=== PATIENT | female | born 1990 | race Caucasian/White ===

== ENCOUNTER 2018-03-20 22:08 | Emergency (ER) | payer MEDICAID, SELFPAY ==
[2018-03-20 22:12] VITALS: BP 115/82; PULSE 89; RESP 17; TEMP 36.6; O2SAT 99
--- NOTE | 2018-03-20 22:21 | DI.RAD_ITS ---
SYMPTOM/DIAGNOSIS: PAIN. FELL GOING UP STAIRS RIGHT WRIST: Five views. No priors. No bone or joint abnormality is identified. IMPRESSION: Normal examination.
[2018-03-20] MEDS: Ibuprofen 800 MG TAB PO (22:26)
[2018-03-20] MEDS: Acetaminophen 500 MG TAB 1000 MG PO (22:26)
--- NOTE | 2018-03-20 22:28 | ED.GENADUL_ITS ---
Discharge Plan Disposition Patient Disposition: HOME Condition: Good Discharge Details Chief Complaint: Orthopedic Clinical Impression: Sprain of right wrist Primary Care Provider: Bita Tarango ED Provider: Darnell Pastrana Home Meds and New Rx's Prescriptions: No Action ProAir HFA 8.5 GM HFA aerosol inhaler 1 puff IN QID PRNRF: 0 Pulmicort Flexhaler 120 PUFF/INH aerosol powdr breath activated 180 mcg IN DAILY RF: 0 bupropion HCl [Wellbutrin XL] 300 mg Tablet Extended Release 24 Hr 300 mg PO DAILY RF: 0 Discharge Instructions Instructions: Wrist Sprain (ED) Additional Instructions: Please use Tylenol, Motrin, and ice for your wrist pain. Please use the splint as directed. If you notice any worsening of your symptoms, or any new symptoms such as vomiting, diarrhea, fever, chills, shortness of breath, chest pain, numbness, weakness, or fainting , please return immediately to the emergency department for reevaluation. Please follow up with your primary care provider as soon as possible for reassessment and reevaluation. As always, it was a pleasure participating in your medical care today. Referrals: Bita Tarango [Primary Care Provider] - Medical Decision Making This is a 28-year-old female who fell on an outstretched wrist on her right wrist which is her dominant hand. She has some subjective tingling in fingers 2 through 5 however she has notable two-point discrimination up to 3 mm in all of her fingers. No signs of actual decrease in sensation objectively. She does have pain on palpation of the carpal tunnel. No significant pain with movement. Good range of motion. I feel she may have suffered a small sprain in a wrist of we will get an x-ray including with a carpal tunnel view to rule out a fracture. 11:22 PM Patient's x-ray has returned there is no acute fracture. I feel that she has suffered a mild sprain in her wrist. With no evidence of snuffbox tenderness, and no objective decrease in sensation on examination I feel she can be safely discharged home. We will give a universal wrist splint, and recommend continue Tylenol and Motrin. I have extensively reviewed the treatment plan and discharge instructions with the patient and their family. I have addressed all patient concerns at this time. The patient and family was made aware of what symptoms to monitor for that would warrant a return to the emergency department. Discussed the plan with the patient and family, they demonstrate verbal understanding and agreement with our assessment and plan at this time. FINDINGS: Bones/joints: Normal. There is no evidence of acute fracture.There is no evidence of malalignment or dislocation. Soft tissues: Normal. IMPRESSION: No acute findings. Dictated and Authenticated by: Julissa Pritchard MD. HPI General Date/Time Provider Initiated Documentation: 03/20/18 22:12 . HPI Narrative: This is a 28-year-old female with no significant past medical history who presents today for evaluation of right wrist pain. Patient is right-hand dominant. She states that she slipped and fell on an outstretched wrist, since then has had pain over her wrist. Pain is worsened with movement. Improved by nothing she has not taken any NSAIDs or used any ice. She denies any tingling but does admit to slight decreased sensation over fingers 2 through 5. She denies any radiation of the pain upper arm, but does admit to some muscle tightness. No pain in her elbow. No pain in the fingers or hand itself. No other complaints at this time. Patient denies any recent surgeries, she denies any IV or illicit drug use. She denies any pertinent family history. Related Data Home Medications Medication Instructions Recorded Confirmed ProAir HFA 1 puff IN QID PRN 08/23/17 03/20/18 Pulmicort Flexhaler 180 mcg IN DAILY 08/23/17 03/20/18 bupropion HCl [Wellbutrin XL] 300 mg PO DAILY 03/20/18 03/20/18 Allergies Allergy/AdvReac Type Severity Reaction Status Date / Time No Known Allergies Allergy Unverified 03/20/18 22:11 General Stated Complaint: Orthopedic KELSEY: 4 Review of Systems Review of Systems All systems reviewed & are unremarkable except as noted in HPI and below Exam Narrative Exam Narrative: 1.Const: Well-nourished, Well-developed, appearing stated age 2.Eyes: PERRL, no conjunctival injection, and symmetrical lids. 3.ENT: Atraumatic external nose and ears. Moist MM. Neck: Symmetric, trachea midline, No thyromegaly. 4.CVS: +S1/S2, No murmurs or gallops. Peripheral pulses 2+ and equal in all extremities. Brisk capillary refill in all extremities. 5.RESP: Unlabored respiratory effort. Clear to auscultation bilaterally. No wheezes rales or rhonchi 6.GI: Soft, Nontender/Nondistended, No hepatosplenomegaly. No guarding or rebound. 7.MSK: Normocephalic/Atraumatic, Extremities w/o deformity. No cyanosis or clubbing, Normal movement of all extremities. Symmetrically palpable radial and ulnar pulses. Capillary refill >2 seconds to all digits. Intact sensation to light touch of the radial, median and ulnar nerves demonstrated by testing in the dorsal web space of the thumb, the distal palmar aspect of the index finger, and the lateral surface of the fifth finger. 2 point discrimination intact to 5mm (up to 6mm can be normal in digits 3-5) of discrimination in the affected digit. She does have subjective decreased in sensation for digits 2 through 5 however sensation appears to be intact and symmetric throughout. 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 Intact recurrent median nerve as demonstrated by ability to move thumb fully through opposition, abduction and flexion. No snuffbox tenderness. Minimal tenderness on palpation of the proximal wrist over the carpal tunnel. Negative Tinel's, negative Phalen's. 8.Skin: Warm, Dry. No rashes or lesions. 9.Neuro: deputy chief executive II-XII grossly intact. Sensation grossly intact, no focal neurologic deficits. 10.Psych: (AAO) x3. Appropriate mood and affect Course Vital Signs Temperature 36.6 C 03/20/18 22:12 Pulse 89 03/20/18 22:12 Respiratory Rate 17 03/20/18 22:12 Blood Pressure 115/82 03/20/18 22:12 Pulse Oximetry 99 03/20/18 22:12 Temperature 36.6 C 03/20/18 22:12 Temperature Source Temporal Artery Scan 03/20/18 22:12 Pulse 89 03/20/18 22:12 Respiratory Rate 17 03/20/18 22:12 Respiratory Effort Non-Labored 03/20/18 22:12 Blood Pressure 115/82 03/20/18 22:12 Blood Pressure Position Sitting 03/20/18 22:12 Pulse Oximetry 99 03/20/18 22:12 Oxygen Delivery Method Room Air 03/20/18 22:12 Oxygen Flow Rate 0 03/20/18 22:12 Pain Level 7 03/20/18 22:12
--- NOTE | 2018-03-20 23:10 | DI.VRAD_ITS ---
EXAM: XR Right Wrist Complete, 3 or more Views EXAM DATE/TIME: 03/20/2018 10:37 PM CLINICAL HISTORY: 28 years old, female; Injury or trauma; Fall; Initial encounter; Blunt trauma (contusions or hematomas; Wrist; Right; Injury date: 03/20/2018 TECHNIQUE: XR Right wrist 3 or more views. COMPARISON: No relevant prior studies available. FINDINGS: Bones/joints: Normal. There is no evidence of acute fracture.There is no evidence of malalignment or dislocation. Soft tissues: Normal. IMPRESSION: No acute findings. Dictated and Authenticated by: Julissa Pritchard MD. Ordering:MELISSA Patrick MD
== END 2018-03-20 23:27 | disposition home or self-care (01) ==
PROVIDERS: Emergency Provider Student in an Organized Health Care Education/Training Program; PCP Family Medicine
DX: S63.501A Unspecified sprain of right wrist, initial encounter (principal); W10.8XXA Fall (on) (from) other stairs and steps, initial encounter
CPT/HCPCS: 29125; 99283; 73110; L3908

== ENCOUNTER 2018-05-25 19:45 | Emergency (ER) | payer MEDICAID, SELFPAY ==
--- NOTE | 2018-05-25 19:46 | W.ED.GENAD ---
Discharge Plan Disposition Patient Disposition: HOME Condition: Stable Discharge Details Chief Complaint: EarProblem Clinical Impression: Acute left otitis media Primary Care Provider: Bita Tarango ED Provider: Brad Arenas Home Meds and New Rx's Prescriptions: New amoxicillin 500 mg tablet 500 mg PO TID Qty: 30 RF: 0 No Action albuterol sulfate [ProAir HFA] 8.5 GM HFA aerosol inhaler 1 puff IN QID PRNRF: 0 Pulmicort Flexhaler 120 PUFF/INH aerosol powdr breath activated 180 mcg IN DAILY RF: 0 bupropion HCl [Wellbutrin XL] 300 mg Tablet Extended Release 24 Hr 300 mg PO DAILY RF: 0 Discharge Instructions Instructions: Otitis Media (ED) Additional Instructions: follow up with your primary care provider within a week you can take 1000mg tylenol and 600mg ibuprofen every 6 hours for pain as needed if you feel you are becoming more ill or have new symptoms such as persistent vomit or difficulty breathing return to the emergency department Medical Decision Making 28 yo female who states for the past 4 or so days has had left ear pain. Denies fevers, chills, dyspnea or other systemic symptoms. She has normal external auditory canals and external mastoid exams bilaterally, right tm normal, left tm is red and bulging. Will start abx given symptoms over 2 days and advised f/u with pcp and return precautions given Differential Diagnosis aom, otitis externa HPI General Mode of arrival: ambulatory. Date/Time Provider Initiated Documentation: 05/25/18 19:46. Limitations to Documentation: no limitations. Information obtained by: patient. History of Present Illness 28 year old F presents to the emergency department with the chief complaint of left ear pain, described as moderate, Quality is described as aching, and is localized to the head (ear) and left. Patient started experiencing this day(s) (4) and it has been constant. No relieving factors improve symptom(s), No exacerbating factors reported . Patient notes no other symptoms.. Patient did receive the following treatments prior to arrival, NSAID Related Data Home Medications Medication Instructions Recorded Confirmed Pulmicort Flexhaler 180 mcg IN DAILY 08/23/17 05/25/18 albuterol sulfate [ProAir HFA] 1 puff IN QID PRN 08/23/17 05/25/18 bupropion HCl [Wellbutrin XL] 300 mg PO DAILY 03/20/18 05/25/18 amoxicillin 500 mg PO TID #30 tab 05/25/18 Previous Rx's Medication Instructions Recorded amoxicillin 500 mg PO TID #30 tab 05/25/18 Allergies Allergy/AdvReac Type Severity Reaction Status Date / Time No Known Allergies Allergy Unverified 05/25/18 19:50 General KELSEY: 4 Review of Systems Review of Systems All systems reviewed & are unremarkable except as noted in HPI and below Constitutional Denies chills and Denies fever(s) ENT Denies change in voice Cardiovascular Denies chest pain and Denies dyspnea Respiratory Denies cough and Denies dyspnea Gastrointestinal Denies abdominal pain, Denies nausea and Denies vomiting Integumentary/Breasts Denies rash [facility] Medical History Asthma (Chronic) Depression (Chronic) Social History Smoking/Tobacco Use Status: Current every day Tobacco Type: cigarettes Smoking cigarettes per day: 10 Years smoked: 14 Alcohol Intake: never Drug use: Never Substance use type: does not use Do you feel safe at home: Yes Do you feel safe in your relationship?: Yes Exam Const General: no acute distress Orientation: alert HENMT Head: normal to inspection Ears: external ears normal General nose exam: external nose normal Mouth: moist mucous membranes Eyes General: appearance normal, both eyes and all related structures Neck Neck: normal visual inspection Resp Effort & Inspection: normal respiratory effort and able to speak in complete sentences Cardio Rate: regular rate Skin General skin exam: no rashes or lesions noted Neuro General: alert and oriented x3 Extrem General: normal to inspection Psych Mental Status: mental status grossly normal
[2018-05-25 19:47] VITALS: PULSE 101; RESP 18; TEMP 37; O2SAT 98
[2018-05-25] MEDS: Amoxicillin 500 MG CAP PO (19:54)
--- NOTE | 2018-05-25 19:55 | ED.GENADUL_ITS ---
Discharge Plan Disposition Patient Disposition: HOME Condition: Stable Discharge Details Chief Complaint: EarProblem Clinical Impression: Acute left otitis media Primary Care Provider: Bita Tarango ED Provider: Brad Arenas Home Meds and New Rx's Prescriptions: New amoxicillin 500 mg tablet 500 mg PO TID Qty: 30 RF: 0 No Action albuterol sulfate [ProAir HFA] 8.5 GM HFA aerosol inhaler 1 puff IN QID PRNRF: 0 Pulmicort Flexhaler 120 PUFF/INH aerosol powdr breath activated 180 mcg IN DAILY RF: 0 bupropion HCl [Wellbutrin XL] 300 mg Tablet Extended Release 24 Hr 300 mg PO DAILY RF: 0 Discharge Instructions Instructions: Otitis Media (ED) Additional Instructions: follow up with your primary care provider within a week you can take 1000mg tylenol and 600mg ibuprofen every 6 hours for pain as needed if you feel you are becoming more ill or have new symptoms such as persistent vomit or difficulty breathing return to the emergency department Medical Decision Making 28 yo female who states for the past 4 or so days has had left ear pain. Denies fevers, chills, dyspnea or other systemic symptoms. She has normal external auditory canals and external mastoid exams bilaterally, right tm normal, left tm is red and bulging. Will start abx given symptoms over 2 days and advised f/u with pcp and return precautions given Differential Diagnosis aom, otitis externa HPI General Mode of arrival: ambulatory . Date/Time Provider Initiated Documentation: 05/25/18 19:46 . Limitations to Documentation: no limitations . Information obtained by: patient . History of Present Illness 28 year old F presents to the emergency department with the chief complaint of left ear pain, described as moderate, Quality is described as aching, and is localized to the head (ear) and left. Patient started experiencing this day(s) (4) and it has been constant. No relieving factors improve symptom(s), No exacerbating factors reported . Patient notes no other symptoms.. Patient did receive the following treatments prior to arrival, NSAID Related Data Home Medications Medication Instructions Recorded Confirmed Pulmicort Flexhaler 180 mcg IN DAILY 08/23/17 05/25/18 albuterol sulfate [ProAir HFA] 1 puff IN QID PRN 08/23/17 05/25/18 bupropion HCl [Wellbutrin XL] 300 mg PO DAILY 03/20/18 05/25/18 amoxicillin 500 mg PO TID #30 tab 05/25/18 Previous Rx's Medication Instructions Recorded amoxicillin 500 mg PO TID #30 tab 05/25/18 Allergies Allergy/AdvReac Type Severity Reaction Status Date / Time No Known Allergies Allergy Unverified 05/25/18 19:50 General KELSEY: 4 Review of Systems Review of Systems All systems reviewed & are unremarkable except as noted in HPI and below Constitutional Denies chills and Denies fever(s) ENT Denies change in voice Cardiovascular Denies chest pain and Denies dyspnea Respiratory Denies cough and Denies dyspnea Gastrointestinal Denies abdominal pain, Denies nausea and Denies vomiting Integumentary/Breasts Denies rash [facility] Medical History Asthma (Chronic) Depression (Chronic) Social History Smoking/Tobacco Use Status: Current every day Tobacco Type: cigarettes Smoking cigarettes per day: 10 Years smoked: 14 Alcohol Intake: never Drug use: Never Substance use type: does not use Do you feel safe at home: Yes Do you feel safe in your relationship?: Yes Exam Const General: no acute distress Orientation: alert HENMT Head: normal to inspection Ears: external ears normal General nose exam: external nose normal Mouth: moist mucous membranes Eyes General: appearance normal, both eyes and all related structures Neck Neck: normal visual inspection Resp Effort & Inspection: normal respiratory effort and able to speak in complete sentences Cardio Rate: regular rate Skin General skin exam: no rashes or lesions noted Neuro General: alert and oriented x3 Extrem General: normal to inspection Psych Mental Status: mental status grossly normal
== END 2018-05-25 19:55 | disposition home or self-care (01) ==
LOC: ER 19:56
PROVIDERS: Emergency Provider Emergency Medicine; PCP Family Medicine
DX: H66.92 Otitis media, unspecified, left ear (principal); F17.210 Nicotine dependence, cigarettes, uncomplicated
CPT/HCPCS: 99283

== ENCOUNTER 2018-10-24 00:43 | Emergency (ER) | payer MEDICAID, SELFPAY ==
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
[2018-10-24 00:47] VITALS: BP 119/75; PULSE 79; RESP 18; TEMP 36.9; O2SAT 98
[2018-10-24] MEDS: predniSONE 20 MG TAB 60 MG PO (01:09)
[2018-10-24 01:10] VITALS: PULSE 79; RESP 18; RESP 4; O2SAT 98
[2018-10-24] MEDS: Albuterol/Ipratropium 3 ML UPD VIAL UPD (01:10)
[2018-10-24] MEDS: Inhaler, Assist Device 1 EACH MC (01:41)
== END 2018-10-24 02:45 | disposition home or self-care (01) ==
PROVIDERS: Emergency Provider Emergency Medicine; PCP Nurse Practitioner Family
DX: J06.9 Acute upper respiratory infection, unspecified (principal); J45.901 Unspecified asthma with (acute) exacerbation; F17.200 Nicotine dependence, unspecified, uncomplicated
CPT/HCPCS: 94640; 99283; J7512; J7620

== ENCOUNTER 2018-12-16 18:24 | Emergency (ER) | payer MEDICAID, SELFPAY ==
[2018-12-16 18:42] VITALS: BP 102/58; PULSE 93; RESP 18; TEMP 36.6; O2SAT 95
--- NOTE | 2018-12-16 18:56 | ED.GENADUL_ITS ---
Discharge Plan Disposition Patient Disposition: HOME Condition: Stable Discharge Details Chief Complaint: EarProblem Clinical Impression: Acute right otitis media Primary Care Provider: RITIKA DAMIAN ED Provider: Aubrey Pathak Home Meds and New Rx's Prescriptions: New amoxicillin-pot clavulanate 875-125 mg tablet 1 tab PO BID 10 Days Qty: 20 RF: 0 No Action Pulmicort Flexhaler 120 PUFF/INH aerosol powdr breath activated 180 mcg IN DAILY RF: 0 bupropion HCl [Wellbutrin XL] 300 mg Tablet Extended Release 24 Hr 300 mg PO DAILY RF: 0 albuterol sulfate [ProAir HFA] 8.5 GM HFA aerosol inhaler 2 puff IN Q4H PRN (Reason: Shortness Of Breath Or Wheezing) Qty: 0 RF: 0 loratadine 10 mg Tablet 10 mg PO RF: 0 Discharge Instructions Instructions: Otitis Media (ED) Additional Instructions: Home to rest tonight. Small, frequent sips of fluids to maintain hydration. You may use Tylenol and/or ibuprofen as needed for discomfort. Take antibiotics as prescribed. Return to the ER for any acute concerns. Continue efforts to decrease smoking. Medical Decision Making 28-year-old female with few days of URI symptoms, now with right ear pain. She has right otitis media on exam. Will treat with Augmentin. Discussed with her home management, follow-up, return indications. She is stable for discharge at this time. HPI General Mode of arrival: ambulatory . Date/Time Provider Initiated Documentation: 12/16/18 18:52 . Limitations to Documentation: no limitations . Information obtained by: patient . History of Present Illness 28 year old F presents to the emergency department with the chief complaint of Right ear pain, URI symptoms, described as moderate, Quality is described as dull, and is localized to the face and right. Patient reports no radiation. Patient started experiencing this hour(s) No relieving factors improve symptom(s), No exacerbating factors reported . Patient notes cough. Patient did receive the following treatments prior to arrival, none Related Data Home Medications Medication Instructions Recorded Confirmed Pulmicort Flexhaler 180 mcg IN DAILY 08/23/17 12/16/18 bupropion HCl [Wellbutrin XL] 300 mg PO DAILY 03/20/18 12/16/18 albuterol sulfate [ProAir HFA] 2 puff IN Q4H PRN #0 g 08/24/19 10/16/19 amoxicillin-pot clavulanate 1 tab PO BID 10 Days #20 tab 12/16/18 loratadine 10 mg PO 12/16/18 Previous Rx's Medication Instructions Recorded albuterol sulfate [ProAir HFA] 2 puff IN Q4H PRN #0 g 10/24/18 amoxicillin-pot clavulanate 1 tab PO BID 10 Days #20 tab 12/16/18 Allergies Allergy/AdvReac Type Severity Reaction Status Date / Time No Known Allergies Allergy Unverified 10/24/18 00:57 General Stated Complaint: EarProblem KELSEY: 4 Review of Systems Review of Systems Narrative: No shortness of breath. She has otherwise been well. 4 systems reviewed and otherwise negative [facility] Medical History Asthma (Chronic) Depression (Chronic) Social History Smoking/Tobacco Use Status: Current every day Tobacco Type: cigarettes Years smoked: 14 Alcohol Intake: never Drug use: Never Substance use type: does not use In current or past relationships, have you been: hurt and made to feel afraid Do you feel safe at home: Yes Do you feel safe in your relationship?: Yes Additional Social history: past relationship Exam Narrative Exam Narrative: GEN: awake, alert, oriented 3. Pleasant, well groomed, interactive. HEAD: Normocephalic, atraumatic ENT: Mucous membranes moist, oropharynx unremarkable, the right tympanic membrane is erythematous, distended, there is one subtle blister present, left tympanic membrane with mild erythema and distention. External ear exam unremarkable EYES: PERRL, EOMI NECK: Full ROM, no JESSE, no menigismus CHEST/RESP: Nontender, few scattered end expiratory wheeze CARDIOVASCULAR: RRR, no murmur, rub momo. 2+ Rad pulse bilateral EXT: Full ROM, no edema, no rash Neuro: Grossly normal neurologic exam, conversant, interactive. Psych: Speech fluent, thoughts congruent, affect normal Course Vital Signs Vital signs: Vital Signs Temperature 36.6 C 12/16/18 18:42 Pulse 93 H 12/16/18 18:42 Respiratory Rate 18 12/16/18 18:42 Blood Pressure 102/58 L 12/16/18 18:42 Pulse Oximetry 95 12/16/18 18:42 Temperature 36.6 C 12/16/18 18:42 Temperature Source Skin 12/16/18 18:42 Pulse 93 H 12/16/18 18:42 Respiratory Rate 18 12/16/18 18:42 Respiratory Effort Non-Labored 12/16/18 18:45 Blood Pressure 102/58 L 12/16/18 18:42 Blood Pressure Position Sitting 12/16/18 18:42 Pulse Oximetry 95 12/16/18 18:42 Oxygen Delivery Method Room Air 12/16/18 18:42 Oxygen Flow Rate 0 12/16/18 18:42 Pain Level 9 12/16/18 18:45
[2018-12-16] MEDS: Amox. 875/Clav. 125, 2 TABS/BTL 1 TAB PO (19:02)
== END 2018-12-16 19:06 | disposition home or self-care (01) ==
PROVIDERS: Emergency Provider Emergency Medicine; PCP Nurse Practitioner Family
DX: H66.91 Otitis media, unspecified, right ear (principal)
CPT/HCPCS: 99283

== ENCOUNTER 2018-12-29 22:52 | Outpatient (REF) | payer MEDICAID, SELFPAY ==
[2018-12-29 21:57] LABS: TSH 2.29 uIU/mL (0.36-3.74)
== END 2018-12-29 23:12 ==
LOC: NCHCN 22:52
PROVIDERS: PCP Nurse Practitioner Family; Visit Provider Nurse Practitioner Family
DX: R63.5 Abnormal weight gain (principal); F41.1 Generalized anxiety disorder; F32.9 Major depressive disorder, single episode, unspecified; J45.40 Moderate persistent asthma, uncomplicated; J44.9 Chronic obstructive pulmonary disease, unspecified; F17.200 Nicotine dependence, unspecified, uncomplicated
CPT/HCPCS: 84443

== ENCOUNTER 2019-01-12 19:41 | Emergency (ER) | payer MEDICAID, SELFPAY ==
[2019-01-12 19:45] VITALS: BP 113/77; PULSE 92; RESP 16; TEMP 36.5; O2SAT 98
--- NOTE | 2019-01-12 19:46 | ED.GENADUL_ITS ---
Discharge Plan Disposition Patient Disposition: HOME Condition: Fair Discharge Details Chief Complaint: RespSymp Clinical Impression: Asthma exacerbation, Sinusitis Primary Care Provider: RITIKA DAMIAN ED Provider: Odalis Jo Home Meds and New Rx's Prescriptions: New prednisone 20 mg tablet 40 mg PO DAILY Qty: 8 RF: 0 doxycycline hyclate 100 mg capsule 100 mg PO BID Qty: 18 RF: 0 Continued Pulmicort Flexhaler 120 PUFF/INH aerosol powdr breath activated 180 mcg IN DAILY RF: 0 bupropion HCl [Wellbutrin XL] 300 mg Tablet Extended Release 24 Hr 300 mg PO DAILY RF: 0 albuterol sulfate [ProAir HFA] 8.5 GM HFA aerosol inhaler 2 puff IN Q4H PRN (Reason: Shortness Of Breath Or Wheezing) Qty: 0 RF: 0 loratadine 10 mg Tablet 10 mg PO DAILY RF: 0 Discharge Instructions Instructions: Doxycycline (By mouth), Prednisone (By mouth), Asthma (ED), Sinusitis (ED) Additional Instructions: Encourage hydration. You may use Tylenol and/or ibuprofen as needed for discomfort. Stop smoking. Please take the doxycycline twice daily as prescribed to help with your sinus infection. Please take the prednisone as prescribed for your asthma exacerbation. He may continue with the nebulizer and albuterol inhaler as prescribed. If you develop difficulty breathing, increased shortness of breath, fever/chills or other new/worsening symptoms please seek care urgently once again. Otherwise, please follow-up with primary care at the end of the week for reevaluation. Referrals: RITIKA DAMIAN [Primary Care Provider] - Discharge Data Discharge Date/Time-TO BE ENTERED AT DEPARTURE: 01/12/19 20:40 Medical Decision Making Patient is a 28 year old female with c/c of sinus pain. States that this began 2 weeks ago and has progressively been increasing. pain over the maxillary sinuses on exam. She denies fevers/chills. States that in the past few days she has developed cough and wheezing. Hx of asthma, feels that she has exacerbation. Has been using her nebulizer with minimal improvement. On exam, she appears nontoxic. She is moving air well but does have scant wheezing, particaulrly at the bases. Given the duration of her symptoms, treatment of her sinusitis is appropriate. As she has not had improvement iwth inhaler or nebulizer, plan to place on steroid burst, she states it has been a long time since she was on steroids. She was given strict return precautions. Advised f/u with PCP. All of her quesitons and concerns were addressed, she is in agreement with this plan. HPI General Mode of arrival: ambulatory . Date/Time Provider Initiated Documentation: 01/12/19 19:46 . Limitations to Documentation: no limitations . Information obtained by: patient and RN notes reviewed . HPI Narrative: Patient is a 28-year-old female with history of asthma presenting today with chief complaint of shortness of breath, wheezing and sinus pain. She reports that she was seen here 1 month ago at which time she was diagnosed with right otitis media and treated with Augmentin. States that initially she had improved from this but that over the past 2 weeks she has been having frontal sinus pain. Denies any fevers associated with this. Is endorsing congestion. States that in recent days, she is developed a cough, wheezing, sore throat. Continues to have some mild discomfort in the right ear but feels that this is plugged. Patient is a smoker. She reports she is been using her nebulizer more than I should and despite this and states that her wheezing has persisted. Patient is currently being her menses, has implantable contraceptive. Related Data Home Medications Medication Instructions Recorded Confirmed Pulmicort Flexhaler 180 mcg IN DAILY 08/23/17 01/12/19 bupropion HCl [Wellbutrin XL] 300 mg PO DAILY 03/20/18 01/12/19 albuterol sulfate [ProAir HFA] 2 puff IN Q4H PRN #0 g 10/24/18 01/12/19 loratadine 10 mg PO DAILY 12/16/18 01/12/19 doxycycline hyclate 100 mg PO BID #18 cap 01/12/19 prednisone 40 mg PO DAILY #8 tab 01/12/19 Previous Rx's Medication Instructions Recorded albuterol sulfate [ProAir HFA] 2 puff IN Q4H PRN #0 g 10/24/18 doxycycline hyclate 100 mg PO BID #18 cap 01/12/19 prednisone 40 mg PO DAILY #8 tab 01/12/19 Allergies Allergy/AdvReac Type Severity Reaction Status Date / Time No Known Allergies Allergy Unverified 01/12/19 19:48 General KELSEY: 4 Review of Systems Constitutional Constitutional: Reports as per HPI, Denies chills, Denies fever(s) and Denies headache(s) Eyes Eyes: Reports as per HPI, Denies eye discharge and Denies irritation ENT Ears, Nose, Mouth, and Throat: Reports as per HPI and Denies headache(s) Cardiovascular Cardiovascular: Reports as per HPI, Denies chest pain, Reports dyspnea and Denies dyspnea on exertion Respiratory Respiratory: Reports as per HPI, Reports cough, Denies hemoptysis, Denies excessive phlegm production, Denies pain on inspiration, Denies pain with cough, Reports dyspnea, Denies dyspnea on exertion, Denies stridor and Reports wheezing Gastrointestinal Gastrointestinal: Reports as per HPI, Denies abdominal pain, Denies change in bowel habits, Denies nausea and Denies vomiting Integumentary/Breasts Skin/Breast: Reports as per HPI and Denies rash Neurologic Neurologic: Reports as per HPI and Denies headache(s) Allergic/Immunologic Allergic/Immunologic: Reports wheezing PFSH Medical History Asthma (Chronic) Depression (Chronic) Social History Smoking/Tobacco Use Status: Current every day Tobacco Type: cigarettes Years smoked: 14 Alcohol Intake: never Drug use: Never Substance use type: does not use In current or past relationships, have you been: hurt and made to feel afraid Do you feel safe at home: Yes Do you feel safe in your relationship?: Yes Additional Social history: past relationship Exam Const General: cooperative, healthy appearing, comfortable, no acute distress, well developed and well groomed Nutritional Appearance: average body habitus and well nourished Orientation: alert and awake [facility] Head: normal to inspection, normocephalic and atraumatic Ears: hearing grossly normal bilaterally, external ears normal, TM normal on the left, mastoids normal and TM abnormal wth effusion serous on the right General nose exam: external nose normal and nares normal Face and sinus: normal facial exam, face symmetric, sinus tenderness frontal and No dry mucous membranes Mouth: oral mucosae normal, lip normal, tongue normal, oropharynx normal and moist mucous membranes Teeth and gingiva: dentition normal Throat: posterior oropharynx normal, tonsils normal and uvula midline Eyes General: appearance normal, both eyes and all related structures Neck Neck: normal visual inspection, full ROM, no lymphadenopathy and no meningeal signs Resp Effort & Inspection: normal respiratory effort, able to speak in complete sentences and no respiratory distress Auscultation: clear to auscultation bilaterally, no rales, no rhonchi and wheezes (scant expiratory wheezes in bilateral bases) Cardio Rate: regular rate Rhythm: regular rhythm Heart Sounds: S1 normal and S2 normal Skin General skin exam: no rashes or lesions noted Neuro General: alert and awake Cognition: normal cognition Speech: speech normal Gait: normal gait Psych Appearance: grossly normal and well kempt Mental Status: mental status grossly normal Speech and Movement: speech and movement normal
[2019-01-12] MEDS: Doxycycline Hyclate 100 MG CAP PO ×2 (20:32)
[2019-01-12] MEDS: predniSONE 20 MG TAB 40 MG PO (20:33)
== END 2019-01-12 20:40 | disposition home or self-care (01) ==
PROVIDERS: Emergency Provider Physician Assistant; PCP Nurse Practitioner Family
DX: J45.901 Unspecified asthma with (acute) exacerbation (principal); J01.90 Acute sinusitis, unspecified; F17.210 Nicotine dependence, cigarettes, uncomplicated
CPT/HCPCS: 99283; J7512

== ENCOUNTER 2019-02-24 21:51 | Emergency (ER) | payer MEDICAID, SELFPAY ==
[2019-02-24 21:54] VITALS: BP 106/69; PULSE 98; RESP 18; TEMP 36.7; O2SAT 99
--- NOTE | 2019-02-24 22:07 | ED.GENADUL_ITS ---
Discharge Plan Disposition Patient Disposition: HOME Condition: Good Discharge Details Chief Complaint: RespSymp Clinical Impression: Asthma exacerbation Primary Care Provider: RITIKA DAMIAN ED Provider: Reuben Steven Home Meds and New Rx's Prescriptions: New prednisone 20 mg tablet 40 mg PO DAILY Qty: 8 RF: 0 Continued Pulmicort Flexhaler 120 PUFF/INH aerosol powdr breath activated 180 mcg IN BID RF: 0 bupropion HCl [Wellbutrin XL] 300 mg Tablet Extended Release 24 Hr 300 mg PO DAILY RF: 0 albuterol sulfate [ProAir HFA] 8.5 GM HFA aerosol inhaler 2 puff IN Q4H PRN (Reason: Shortness Of Breath Or Wheezing) Qty: 0 RF: 0 loratadine 10 mg Tablet 10 mg PO DAILY RF: 0 ibuprofen 200 mg Tablet 400 mg PO PRN PRNRF: 0 Changed albuterol sulfate 2.5 mg /3 mL (0.083 %) Solution For Nebulization 2.5 mg inhalation Q4H PRNQty: 0 RF: 0 Discharge Instructions Instructions: Asthma (ED) Additional Instructions: Continue your maintenance inhaler. Use albuterol every 4-6 hours. Prednisone as directed. Follow-up with primary care next week for reevaluation. Return to ED for increasing difficulty breathing, chest pain, fever, other concerns or problems. Referrals: RITIKA DAMIAN [Primary Care Provider] - Discharge Data Discharge Date/Time-TO BE ENTERED AT DEPARTURE: 02/24/19 23:30 Medical Decision Making Patient presenting with cough and shortness of breath. She has a history of asthma. Sounds like she has URI symptoms to some degree. She recently stopped smoking. She has good air exchange with only few wheezes on lung exam. She has normal room air pulse oximetry. Will give DuoNeb and start prednisone. Obtain chest x-ray. Patient's chest x-ray is normal. Vital signs remain fine. Appears well. Will hold off on antibiotics at this point. Will burst with steroids and continue albuterol every 4 to 6 hours. Follow-up with primary care next week. Return to ED if increasing difficulty breathing, chest pain, mental status changes, vomiting, other concerns. HPI General Mode of arrival: ambulatory . Date/Time Provider Initiated Documentation: 02/24/19 22:06 . Limitations to Documentation: no limitations . Information obtained by: patient and RN notes reviewed . HPI Narrative: Patient presents to ED with complaint of cough and shortness of breath. Patient reports symptoms for couple weeks now. Seems to be getting worse instead of better. Also seems to be worse at night. She has some congestion but denies earache or sore throat. There is no fever. There is no real chest pain but there is irritation when taking deep breaths in. She does have history of asthma. She reports that she stopped smoking on the sixth of this month. She has been hospitalized and on steroids in the past for her asthma. Related Data Home Medications Medication Instructions Recorded Confirmed Pulmicort Flexhaler 180 mcg IN BID 08/23/17 02/24/19 bupropion HCl [Wellbutrin XL] 300 mg PO DAILY 03/20/18 02/24/19 albuterol sulfate [ProAir HFA] 2 puff IN Q4H PRN #0 g 10/24/18 02/24/19 loratadine 10 mg PO DAILY 12/16/18 02/24/19 albuterol sulfate 2.5 mg INHALATION Q4H PRN #0 ml 02/24/19 02/24/19 ibuprofen 400 mg PO PRN PRN 02/24/19 02/24/19 prednisone 40 mg PO DAILY #8 tab 02/24/19 Previous Rx's Medication Instructions Recorded albuterol sulfate [ProAir HFA] 2 puff IN Q4H PRN #0 g 10/24/18 albuterol sulfate 2.5 mg INHALATION Q4H PRN #0 ml 02/24/19 prednisone 40 mg PO DAILY #8 tab 02/24/19 Allergies Allergy/AdvReac Type Severity Reaction Status Date / Time No Known Allergies Allergy Unverified 02/24/19 21:59 General Stated Complaint: RespSymp KELSEY: 4 Review of Systems Narrative: As documented in HPI otherwise negative as below. Const: no fever, chills, weakness Resp: cough, SOB; no pleuritic pain CV: no CP, diaphoresis, edema, syncope GI: no abdominal pain, nausea, vomiting, diarrhea Neuro: no headache, numbness, focal weakness, confusion PFSH Medical History Asthma (Chronic) Depression (Chronic) Surgical History (Updated 02/24/19 @ 22:18 by Reuben Steven MD) No pertinent past surgical history (Chronic) Social History (Updated 02/24/19 @ 22:18 by Reuben Steven MD) Smoking/Tobacco Use Status: Former Tobacco Use Quit Date: 02/05/19 Alcohol Intake: never Drug use: Never Substance use type: does not use In current or past relationships, have you been: hurt and made to feel afraid Do you feel safe at home: Yes Do you feel safe in your relationship?: Yes Additional Social history: past relationship Exam Narrative Exam Narrative: Vitals: Afebrile with normal vital signs and room air pulse oximetry. Const: WDWN female in NAD. HEENT: NC/AT. Normal facial exam. No sinus tenderness. TMs clear. OP clear. Eyes: Normal conjunctiva and sclera. Neck: Supple. Trachea midline. Lungs: Normal respiratory effort. Lungs with few faint wheeze. Good air exchange. Cor: RRR without murmur/gallop. Good radial pulses. Neuro: A+O x 3. Normal speech, gait, mentation. No gross motor or sensory deficit. Ext: No C/C/E. Skin: Warm and dry without rash. Course Vital Signs Vital signs: Vital Signs Temperature 98.1 F 02/24/19 21:54 Pulse 98 H 02/24/19 21:54 Respiratory Rate 18 02/24/19 21:54 Blood Pressure 106/69 02/24/19 21:54 Pulse Oximetry 99 02/24/19 21:54 Temperature 98.1 F 02/24/19 21:54 Temperature Source Skin 02/24/19 21:54 Pulse 98 H 02/24/19 21:54 Respiratory Rate 18 02/24/19 21:54 Respiratory Effort 02/24/19 22:02 Respiratory Depth Normal 02/24/19 22:02 Blood Pressure 106/69 02/24/19 21:54 Blood Pressure Position Sitting 02/24/19 21:54 Pulse Oximetry 99 02/24/19 21:54 Oxygen Delivery Method Room Air 02/24/19 21:54 Oxygen Flow Rate 0 02/24/19 21:54 Pain Level 9 02/24/19 21:54
--- NOTE | 2019-02-24 22:28 | DI.RAD_ITS ---
EXAM: XR CHEST 2V PA LATERAL CLINICAL HISTORY: cough and SOB. TECHNIQUE: 2D digital imaging was performed. COMPARISON: No exams were available for comparison FINDINGS: LUNGS: Clear. No pleural abnormality seen. HEART: Normal. MEDIASTINUM: Normal. OTHER FINDINGS:Normal. IMPRESSION: No acute pulmonary findings.
--- NOTE | 2019-02-24 22:34 | DI.VRAD_ITS ---
PROCEDURE INFORMATION: Exam: XR Chest, 2 Views Exam date and time: 02/24/2019 10:25 PM Age: 29 years old Clinical indication: Cough and shortness of breath TECHNIQUE: Imaging protocol: XR of the chest Views: 2 views. COMPARISON: No relevant prior studies available. FINDINGS: Lungs: Clear lungs. Pleural space: No pneumothorax. No sizable pleural effusion. Heart/Mediastinum: No cardiomegaly. Bones/joints: Unremarkable. IMPRESSION: Clear lungs. Dictated and Authenticated by: Marc Redman MD. Ordering:YISEL Alexis MD
[2019-02-24] MEDS: predniSONE 20 MG TAB 60 MG PO (22:58)
[2019-02-24 23:00] VITALS: PULSE 87; RESP 1; RESP 16; O2SAT 98
[2019-02-24] MEDS: Albuterol/Ipratropium 3 ML UPD VIAL UPD (23:00)
== END 2019-02-24 23:30 | disposition home or self-care (01) ==
PROVIDERS: Emergency Provider Emergency Medicine; PCP Nurse Practitioner Family
DX: J45.901 Unspecified asthma with (acute) exacerbation (principal); R06.02 Shortness of breath; Z87.891 Personal history of nicotine dependence
CPT/HCPCS: 94640; 99283; 71046; J7512; J7620

== ENCOUNTER 2019-03-06 11:52 | Emergency (ER) | payer MEDICAID, SELFPAY ==
[2019-03-06 11:58] VITALS: BP 114/72; PULSE 93; RESP 18; TEMP 36.7; O2SAT 93
--- NOTE | 2019-03-06 12:49 | W.ED.GENAD ---
Discharge Plan Disposition Patient Disposition: HOME Condition: Stable Discharge Details Chief Complaint: DentalOral Clinical Impression: Oral candidiasis Primary Care Provider: RITIKA DAMIAN ED Provider: Tena Flores Home Meds and New Rx's Prescriptions: New nystatin 100,000 unit/mL suspension 5 ml PO QID 10 Days Qty: 200 RF: 0 Continued Pulmicort Flexhaler 120 PUFF/INH aerosol powdr breath activated 180 mcg IN BID RF: 0 bupropion HCl [Wellbutrin XL] 300 mg Tablet Extended Release 24 Hr 300 mg PO DAILY RF: 0 albuterol sulfate [ProAir HFA] 8.5 GM HFA aerosol inhaler 2 puff IN Q4H PRN (Reason: Shortness Of Breath Or Wheezing) Qty: 0 RF: 0 loratadine 10 mg Tablet 10 mg PO DAILY RF: 0 ibuprofen 200 mg Tablet 400 mg PO PRN PRNRF: 0 albuterol sulfate 2.5 mg /3 mL (0.083 %) Solution For Nebulization 2.5 mg inhalation Q4H PRNQty: 0 RF: 0 Discharge Instructions Instructions: Oral Candidiasis (ED) Additional Instructions: Use the nystatin until finished. Continue to use your Pulmicort as directed. Inhaled steroid such as Pulmicort can increase the risk of causing oral candidiasis or thrush. It is important to rinse your mouth out and gargle with water or mouthwash after using Pulmicort to prevent thrush. Follow-up with your primary care doctor in 1 week. Return to the emergency department with any worsening or new concerning symptoms. Discharge Data Discharge Date/Time-TO BE ENTERED AT DEPARTURE: 03/06/19 13:09 Discharge Physician: Tena Flores Medical Decision Making 29-year-old female presents for painful tongue and mouth ulcers for the past 2 days. Patient has a history of asthma and she uses Pulmicort, albuterol and recently finished steroids. Inspection of tongue reveals patches of white coating that are tender to palpation and do not wipe off with scraping with tongue depressor. No other obvious abnormalities noted within mouth. Normal oropharynx. Suspect most likely oral candidiasis due to Pulmicort. Patient was advised to rinse and gargle with water or mouthwash after using Pulmicort. Will treat with nystatin. Advised to follow up with the primary care doctor for re-evaluation as needed. Usual and customary return precautions given prior to discharge. HPI General Mode of arrival: ambulatory. Date/Time Provider Initiated Documentation: 03/06/19 12:48. Limitations to Documentation: no limitations. Information obtained by: patient. History of Present Illness 29 year old F presents to the emergency department with the chief complaint of thrush to tongue, painful mouth sores, described as moderate, Quality is described as burning and aching, and is localized to the mouth. Patient reports no radiation. Patient started experiencing this day(s) (2) and it has been constant. No relieving factors improve symptom(s), Eating worsens symptoms . Patient notes denies cough, fever/chills, loss of appetite, nausea/vomiting and rash. Patient did receive the following treatments prior to arrival, none Related Data Home Medications Medication Instructions Recorded Confirmed Pulmicort Flexhaler 180 mcg IN BID 08/23/17 03/06/19 bupropion HCl [Wellbutrin XL] 300 mg PO DAILY 03/20/18 03/06/19 albuterol sulfate [ProAir HFA] 2 puff IN Q4H PRN #0 g 10/24/18 03/06/19 loratadine 10 mg PO DAILY 12/16/18 03/06/19 albuterol sulfate 2.5 mg INHALATION Q4H PRN #0 ml 02/24/19 03/06/19 ibuprofen 400 mg PO PRN PRN 02/24/19 03/06/19 nystatin 5 ml PO QID 10 Days #200 ml 03/06/19 Previous Rx's Medication Instructions Recorded albuterol sulfate [ProAir HFA] 2 puff IN Q4H PRN #0 g 10/24/18 albuterol sulfate 2.5 mg INHALATION Q4H PRN #0 ml 02/24/19 nystatin 5 ml PO QID 10 Days #200 ml 03/06/19 Allergies Allergy/AdvReac Type Severity Reaction Status Date / Time No Known Allergies Allergy Unverified 02/24/19 21:59 General Stated Complaint: DentalOral KELSEY: 4 Review of Systems All systems reviewed & are unremarkable except as noted in HPI and below Constitutional Constitutional: Reports as per HPI, Denies chills and Denies fever(s) Eyes Eyes: Denies blurry vision ENT Ears, Nose, Mouth, and Throat: Denies dizziness, Reports mouth lesions, Reports mouth pain, Denies sore throat, Denies throat swelling, Reports tongue swelling and Reports other (tongue lesions) Cardiovascular Cardiovascular: Denies chest pain and Denies dyspnea Respiratory Respiratory: Denies cough and Denies dyspnea Gastrointestinal Gastrointestinal: Denies abdominal pain, Denies diarrhea and Denies vomiting Genitourinary Genitourinary: Denies hematuria and Denies dysuria Musculoskeletal Musculoskeletal: Denies back pain and Denies numbness Integumentary/Breasts Skin/Breast: Denies lesions and Denies rash Neurologic Neurologic: Denies dizziness, Denies focal weakness and Denies numbness Allergic/Immunologic Allergic/Immunologic: Denies throat swelling and Reports tongue swelling [facility] Medical History Asthma (Chronic) Depression (Chronic) Surgical History No pertinent past surgical history (Chronic) Social History Smoking/Tobacco Use Status: Former Tobacco Use Quit Date: 02/05/19 Alcohol Intake: never Drug use: Never Substance use type: does not use Do you feel safe at home: Yes Do you feel safe in your relationship?: Yes Exam Const General: cooperative, healthy appearing and no acute distress HENMT Head: normal to inspection Ears: hearing grossly normal bilaterally, external ears normal and TM's normal bilaterally General nose exam: external nose normal Face and sinus: normal facial exam Mouth: tongue abnormal with white coating (in patches; does not wipe off; tender to palpation) Teeth and gingiva: dentition normal Throat: posterior oropharynx normal Eyes General: appearance normal, both eyes and all related structures Neck Neck: normal visual inspection Resp Effort & Inspection: normal respiratory effort and able to speak in complete sentences Cardio Rate: regular rate Skin General skin exam: no rashes or lesions noted Neuro General: alert, awake and oriented x3 Motor: muscle tone normal throughout Extrem General: normal to inspection and full ROM Psych Appearance: grossly normal Affect: normal affect Course Vital Signs Vital signs: Vital Signs Temperature 98.1 F 03/06/19 11:58 Pulse 93 H 03/06/19 11:58 Respiratory Rate 18 03/06/19 11:58 Blood Pressure 114/72 03/06/19 11:58 Pulse Oximetry 93 L 01/04/20 11:58 Temperature 98.1 F 03/06/19 11:58 Temperature Source Skin 03/06/19 11:58 Pulse 93 H 03/06/19 11:58 Respiratory Rate 18 03/06/19 11:58 Respiratory Effort Non-Labored 03/06/19 12:00 Blood Pressure 114/72 03/06/19 11:58 Blood Pressure Position Sitting 03/06/19 11:58 Pulse Oximetry 93 L 03/06/19 11:58 Oxygen Delivery Method Room Air 03/06/19 11:58 Oxygen Flow Rate 0 03/06/19 11:58 Pain Level 7 03/06/19 11:58
== END 2019-03-06 13:09 | disposition home or self-care (01) ==
PROVIDERS: Emergency Provider Physician Assistant; PCP Nurse Practitioner Family
DX: B37.0 Candidal stomatitis (principal)
CPT/HCPCS: 99283

== ENCOUNTER 2019-12-04 13:16 | Emergency (ER) | payer MEDICAID, SELFPAY ==
[2019-12-04] VITALS (13 sets, daily range): BP systolic 104–128; BP diastolic 50–89; PULSE 81–107; RESP 4–21; TEMP 36.8; O2SAT 95–104
--- NOTE | 2019-12-04 13:30 | DI.RAD_ITS ---
EXAM: XR PORTABLE CHEST AP CLINICAL HISTORY: Cough, SOB TECHNIQUE: COMPARISON: CR,XR XR CHEST 2V PA LATERAL from 02/24/2019 FINDINGS: Portable AP chest was obtained. The heart is not enlarged. Lungs are predominantly clear. There is a questionable focal radiodensity projected over the right lung base, consolidation not excluded, if clinically indicated additional evaluation with PA and lateral chest may be obtained to evaluate pos sible pneumonia. IMPRESSION: RADIATION DOSE DELIVERED: Total DLP
--- NOTE | 2019-12-04 13:39 | ED.GENADUL_ITS ---
Discharge Plan Disposition Patient Disposition: HOME Condition: Improving Discharge Details Clinical Impression: Acute bronchitis with bronchospasm Primary Care Provider: RITIKA DAMIAN ED Provider: Aubrey Pathak Home Meds and New Rx's Prescriptions: New prednisone 20 mg tablet 60 mg PO DAILY 5 Days Qty: 15 RF: 0 doxycycline hyclate 100 mg capsule 100 mg PO BID 10 Days Qty: 20 RF: 0 Continued Pulmicort Flexhaler 120 PUFF/INH aerosol powdr breath activated 180 mcg IN BID RF: 0 bupropion HCl [Wellbutrin XL] 300 mg Tablet Extended Release 24 Hr 300 mg PO DAILY RF: 0 albuterol sulfate [ProAir HFA] 8.5 GM HFA aerosol inhaler 2 puff IN Q4H PRN (Reason: Shortness Of Breath Or Wheezing) Qty: 0 RF: 0 loratadine 10 mg Tablet 10 mg PO DAILY RF: 0 ibuprofen 200 mg Tablet 400 mg PO PRN PRNRF: 0 albuterol sulfate 2.5 mg /3 mL (0.083 %) Solution For Nebulization 2.5 mg inhalation Q4H PRNQty: 0 RF: 0 Discharge Instructions Instructions: Acute Bronchitis (ED) Additional Instructions: Home to rest today. Follow-up with [facility] if not improving in 3 to 5 days time. Take antibiotics and prednisone as prescribed. Return to the emergency department for any acute concerns. Continue your regularly prescribed medications. Medical Decision Making 29-year-old female with history of reactive airway disease presents with upper respiratory illness with cough, sinus congestion and now wheeze over the past few days. She is not hypoxic nor febrile. She is able to speak in full sentences. Differential diagnosis includes bronchitis, viral syndrome, exacerbation of reactive airway disease. Patient had IV access established, given parenteral steroids, and inhaled DuoNeb, referred for chest x-ray and COVID-19 testing with screening laboratories. Laboratories note a white count of 8, hematocrit 37, platelets 288. Reassuring chemistries. Covid19 test pending. CXR hyperinflated, otherwise negative. Patient significantly improved after parenteral steroids and inhaled therapy. No further wheezing on reexamination and she subjectively feels better. I will place her on a burst of systemic steroids as well as doxycycline to cover atypical pathogens of acute bronchitis. She is stable for discharge at this time and understands indications to seek repeat evaluation. HPI General Mode of arrival: ambulatory . Date/Time Provider Initiated Documentation: 12/04/19 13:21 . Limitations to Documentation: no limitations . Information obtained by: patient . History of Present Illness 29 year old F presents to the emergency department with the chief complaint of Day for cough, congestion, wheezing, Quality is described as constant, and is localized to the chest. Patient reports no radiation. Patient started experiencing this day(s) and it has been constant. No relieving factors improve symptom(s), No exacerbating factors reported . Patient notes cough and shortness of breath; denies fever/chills. Patient did receive the following treatments prior to arrival, other (Nebulizer at home) Related Data Home Medications Medication Instructions Recorded Confirmed Pulmicort Flexhaler 180 mcg IN BID 08/23/17 12/04/19 bupropion HCl [Wellbutrin XL] 300 mg PO DAILY 03/20/18 12/04/19 albuterol sulfate [ProAir HFA] 2 puff IN Q4H PRN #0 g 10/24/18 12/04/19 loratadine 10 mg PO DAILY 12/16/18 12/04/19 albuterol sulfate 2.5 mg INHALATION Q4H PRN #0 ml 02/24/19 12/04/19 ibuprofen 400 mg PO PRN PRN 02/24/19 12/04/19 doxycycline hyclate 100 mg PO BID 10 Days #20 cap 12/04/19 prednisone 60 mg PO DAILY 5 Days #15 tab 12/04/19 Previous Rx's Medication Instructions Recorded albuterol sulfate [ProAir HFA] 2 puff IN Q4H PRN #0 g 10/24/18 albuterol sulfate 2.5 mg INHALATION Q4H PRN #0 ml 02/24/19 doxycycline hyclate 100 mg PO BID 10 Days #20 cap 12/04/19 prednisone 60 mg PO DAILY 5 Days #15 tab 12/04/19 Allergies Allergy/AdvReac Type Severity Reaction Status Date / Time animal dander Allergy Unverified 12/04/19 13:30 pollen extracts Allergy Unverified 12/04/19 13:31 General Stated Complaint: SOB KELSEY: 3 Review of Systems Narrative: Sinus congestion, cough, minimal production of sputum. Bertrand wheezy over the past 2 days. No recent oral steroids. No known sick contacts. [facility] Medical History (Updated 12/04/19 @ 15:26 by Aubrey Pathak MD) Asthma Depression Surgical History No pertinent past surgical history Social History Smoking/Tobacco Use Status: Former Tobacco Use Quit Date: 02/05/19 Alcohol Intake: never Drug use: Never Substance use type: does not use Do you feel safe at home: Yes Do you feel safe in your relationship?: Yes Exam Narrative Exam Narrative: GEN: awake, alert, oriented 3. Pleasant, well groomed, interactive. HEAD: Normocephalic, atraumatic ENT: Mucous membranes moist, oropharynx unremarkable, tympanic membranes slightly congested but nondistended, external ear exam unremarkable EYES: PERRL, EOMI NECK: Full ROM, no JESSE, no menigismus CHEST/RESP: Nontender, bilateral expiratory wheeze throughout CARDIOVASCULAR: RRR, no murmur, rub momo. 2+ Rad pulse bilateral ABDOMEN: Soft, nontender, no mass. +Bowel sounds EXT: Full ROM, no edema, no rash Neuro: Grossly normal neurologic exam, conversant, interactive. Speaking in full sentences Psych: Speech fluent, thoughts congruent, affect normal Course Vital Signs Vital signs: Vital Signs Temperature 36.8 C 12/04/19 13:23 Pulse 107 H 12/04/19 13:23 Respiratory Rate 20 12/04/19 13:23 Blood Pressure 128/89 12/04/19 13:23 Pulse Oximetry 100 12/04/19 13:23 Temperature 36.8 C 12/04/19 13:23 Temperature Source Temporal Artery Scan 12/04/19 13:23 Pulse 107 H 12/04/19 13:23 Respiratory Rate 20 12/04/19 13:33 Respiratory Effort 12/04/19 13:33 Respiratory Depth Normal 12/04/19 13:33 Respiratory Pattern Normal 12/04/19 13:33 Blood Pressure 128/89 12/04/19 13:23 Blood Pressure Position Sitting 12/04/19 13:23 Pulse Oximetry 100 12/04/19 13:23 Oxygen Delivery Method Room Air 12/04/19 13:23 Oxygen Flow Rate 0 12/04/19 13:23 Pain Level 0 12/04/19 13:23
[2019-12-04] MEDS: methylPREDNISolone SUCC 125 MG VIAL IVP (13:52)
[2019-12-04] MEDS: Normal Saline Flush 10 ML SYR IVP (13:53)
[2019-12-04 13:59] LABS: Abs Immature Grans 0.02 10^3/uL (0.0-0.06); Absolute Basophil Count 0.05 10^3/uL (0.0-0.2); Absolute Eosinophil Count 1.69 10^3/uL (0.0-0.7); Absolute Lymphocyte Count 1.21 10^3/uL (1.2-3.4); Absolute Monocyte Count 0.43 10^3/uL (0.1-0.8); Absolute Neutrophil Count 4.62 10^3/uL (1.2-6.7); Basophils % 0.6; Eosinophils % 21.1; HCT 37.3 % (36.0-46.0); HGB 13.4 g/dL (11.2-15.7); Immature Grans % 0.2; Lymphocytes % 15.1; MCH 32.4 pg (27.0-33.0); MCHC 35.9 % (32.0-36.0); MCV 90.3 fL (80-95); MPV 10.2 fL (8.0-11.0); Monocytes % 5.4; Neutrophils % 57.6; Nucleated RBC 0 %; Platelet Count 288 10^3/uL (130-400); RBC 4.13 10^6/uL (3.93-5.22); RDW 11.9 % (11.7-14.6); RDW-SD 39.6 fL; WBC 8.02 10^3/uL (4.4-10.8)
[2019-12-04 14:09] LABS: Anion Gap 10.9 mmol/L (3-11); BUN 6 mg/dL (7-18); CO2 24.1 mmol/L (21.0-32.0); CREATININE 0.91 mg/dL (0.55-1.02); Calcium 8.7 mg/dL (8.5-10.1); Chloride 105 mmol/L (98-107); Glucose 110 mg/dL (74-106); Potassium 3.9 mmol/L (3.5-5.1); Sodium 140 mmol/L (136-145)
[2019-12-04] MEDS: Albuterol/Ipratropium 3 ML UPD VIAL UPD (14:15)
[2019-12-04] MEDS: Albuterol/Ipratropium 3 ML UPD VIAL (14:26)
--- NOTE | 2019-12-04 15:39 | DI.VRAD_ITS ---
PROCEDURE INFORMATION: Exam: XR Chest, 1 View Exam date and time: 12/04/2019 3:16 PM Age: 29 years old Clinical indication: Chest pain TECHNIQUE: Imaging protocol: XR of the chest Views: 1 view. COMPARISON: CR XR CHEST 2V PA LATERAL 02/24/2019 10:23 PM FINDINGS: Lungs: The lungs are hyperaerated with flattening of the hemidiaphragms. No focal infiltrates. Pleural space: Unremarkable. No pleural effusion. No pneumothorax. Heart/Mediastinum: Unremarkable. No cardiomegaly. Bones/joints: Unremarkable. IMPRESSION: Hyperaeration suggests reactive airway disease. Dictated and Authenticated by: Edelmira Rosales MD. Ordering:BRAIN Burgos MD
[2019-12-07 02:18] LABS: Patient Race White; SARS-CoV-2 RNA Undetected (Undetected); SARS-CoV-2 Specimen Source Nasopharynx
--- NOTE | 2019-12-07 08:46 | NUR.NOTE ---
Nursing Note: Contacted pt via phone and notified of negative covid results.
== END 2019-12-04 15:45 | disposition home or self-care (01) ==
PROVIDERS: Emergency Provider Emergency Medicine; PCP Nurse Practitioner Family
DX: R09.81 Nasal congestion (principal); R06.02 Shortness of breath; J06.9 Acute upper respiratory infection, unspecified; Z03.818 Encounter for observation for suspected exposure to other biological agents ruled out
CPT/HCPCS: 36415; 80048; 94640; 96374; 99284; U0003; 71045; 85025; 93005; 93010; J2930; J7620

== ENCOUNTER 2019-12-10 02:35 | Outpatient (CLI) | payer MEDICAID, SELFPAY ==
[2019-12-11 20:24] LABS: COVID-19 RT-PCR Result NEGATIVE (Negative)
== END 2019-12-10 02:55 ==
PROVIDERS: PCP Nurse Practitioner Family; Visit Provider Family Medicine
DX: Z11.59 Encounter for screening for other viral diseases (principal); Z01.811 Encounter for preprocedural respiratory examination
CPT/HCPCS: U0003

== ENCOUNTER 2019-12-14 01:45 | Outpatient (CLI) | payer MEDICAID, SELFPAY ==
[2019-12-15 20:40] LABS: COVID-19 RT-PCR Result NEGATIVE (Negative)
== END 2019-12-14 02:05 ==
PROVIDERS: PCP Nurse Practitioner Family; Visit Provider Family Medicine
DX: Z11.59 Encounter for screening for other viral diseases (principal); Z01.811 Encounter for preprocedural respiratory examination
CPT/HCPCS: U0003

== ENCOUNTER 2019-12-17 01:35 | Outpatient (CLI) | payer MEDICAID, SELFPAY ==
[2019-12-17] MEDS: Inhaler, Assist Device 1 EACH MC (11:25)
[2019-12-17] MEDS: Albuterol HFA 18 GM 200 PUFF INH IH (11:25)
--- NOTE | 2019-12-22 11:58 | W.PFT ---
Date of service: 12/17/19 Time of Service: 10:23 Pulmonary Function Test Result Interpretation Spirometry: Mild obstructive airways disease, with no bronchodilator response Lung Volumes: No evidence of restriction Diffusion Capacity: Normal Airway Pressure: Normal Impression Mild obstructive airways disease with no bronchodilator response Clinical Correlation therefore is recommended.
== END 2019-12-17 01:55 ==
PROVIDERS: PCP Nurse Practitioner Family; Visit Provider Emergency Medicine
DX: R06.02 Shortness of breath (principal); J44.9 Chronic obstructive pulmonary disease, unspecified
CPT/HCPCS: 94060; 94726; 94729

== ENCOUNTER 2020-02-08 18:45 | Outpatient (REF) | payer MEDICAID, SELFPAY ==
[2020-02-11 15:58] LABS: COVID-19 RT-PCR Result NEGATIVE (Negative)
== END 2020-02-08 19:05 ==
LOC: NCHCN 18:45
PROVIDERS: PCP Nurse Practitioner Family; Visit Provider Family Medicine
DX: G44.52 New daily persistent headache (NDPH) (principal)
CPT/HCPCS: U0003

== ENCOUNTER 2020-07-13 21:49 | Outpatient (REF) | payer MEDICAID, SELFPAY ==
[2020-07-15 14:17] LABS: COVID-19 RT-PCR UVMMC Result Negative (Negative)
== END 2020-07-13 21:50 | disposition home or self-care (01) ==
LOC: NCHCN 21:49
PROVIDERS: PCP Nurse Practitioner Family; Visit Provider Registered Nurse
DX: Z20.822 Contact with and (suspected) exposure to COVID-19 (principal); R05 Cough
CPT/HCPCS: U0003

== ENCOUNTER 2020-09-04 01:17 | Emergency (ER) | payer MEDICAID, SELFPAY ==
[2020-09-04 01:34] VITALS: BP 117/82; PULSE 88; RESP 18; TEMP 36.6; O2SAT 100
[2020-09-04 01:49] VITALS: PULSE 87; RESP 18; RESP 4; O2SAT 100
[2020-09-04] MEDS: Albuterol/Ipratropium 3 ML UPD VIAL UPD (01:49)
[2020-09-04] MEDS: predniSONE 20 MG TAB 60 MG PO (01:50)
[2020-09-04] MEDS: Albuterol HFA 8 GM 60 PUFF INH IH (01:50)
--- NOTE | 2020-09-04 01:56 | ED.GENADUL_ITS ---
Discharge Plan Disposition Patient Disposition: HOME Condition: Good Discharge Details Clinical Impression: Viral URI with cough, Asthma exacerbation Primary Care Provider: Regina Pappas ED Provider: Darnell Pastrana Home Meds and New Rx's Prescriptions: New prednisone 50 MG tablet 50 mg PO DAILY Qty: 5 RF: 0 Continued Pulmicort Flexhaler 120 PUFF/INH aerosol powdr breath activated 180 mcg IN BID RF: 0 bupropion HCl [Wellbutrin XL] 300 mg Tablet Extended Release 24 Hr 300 mg PO DAILY RF: 0 albuterol sulfate [ProAir HFA] 8.5 GM HFA aerosol inhaler 2 puff IN Q4H PRN (Reason: Shortness Of Breath Or Wheezing) Qty: 0 RF: 0 loratadine 10 mg Tablet 10 mg PO DAILY RF: 0 ibuprofen 200 mg Tablet 400 mg PO PRN PRNRF: 0 albuterol sulfate 2.5 mg /3 mL (0.083 %) Solution For Nebulization 2.5 mg inhalation Q4H PRNQty: 0 RF: 0 Discharge Instructions Instructions: Asthma (ED), Upper Respiratory Infection (ED) Additional Instructions: At this time your exam shows no evidence of bacterial pneumonia, or bacterial ear infection. I suspect your symptoms are likely from a virus. Unfortunately this has brought about an asthma exacerbation. Please continue to use the albuterol inhaler 2 puffs every 4-6 hours for the next 2 days. Please take the steroid pill prednisone as directed. Please continue to use your home Pulmicort inhaler. If you notice any worsening of your symptoms, or any new symptoms such as vomiting, diarrhea, fever, chills, shortness of breath, chest pain, numbness, weakness, or fainting , please return immediately to the emergency department for reevaluation. Please follow up with your primary care provider as soon as possible for reassessment and reevaluation. As always, it was a pleasure participating in your medical care today. Referrals: Regina Pappas [Primary Care Provider] - Medical Decision Making 30-year-old female with a past medical history of asthma presents today for evaluation of cough. Patient states that yesterday she developed a mild sore throat, mild nasal congestion mild cough. She states that the symptoms have been mild however she feels that her asthma is worse because of it. She denies any fever or chills. She denies any significant neck pain or headache. She denies any vomiting or diarrhea. She has received both of her Covid vaccines. She does admit to a positive sick contact which is her significant other who has similar symptoms. No other complaints at this time. No other modifying factors. Denies PE risk factors such as recent long car rides, immobilization, recent surgery, prior history of DVT or PE, family history of PE or DVT, morbid obesity, exogenous estrogen and smoking, hemoptysis, history of cancer. Physical exam demonstrates no erythema in the posterior oropharynx. No evidence of otitis media. No meningeal signs. She does demonstrate mild wheezes throughout her lung boone, no crackles. Bedside ultrasound shows no evidence of pneumonia, consolidation, infiltrate, or B-lines. I did discuss options of x-ray imaging, and patient defers additional x-rays at this time. Signs and symptoms appear consistent with a viral URI causing mild asthma exacerbation. We will give a DuoNeb here, prednisone for home use, give a dose of prednisone here, and give her a new albuterol inhaler with spacer. Patient otherwise remains notably stable, vital signs are stable, no hypoxemia tachypnea or signs of respiratory distress. Discussed red flags which to return. I have extensively reviewed the treatment plan and discharge instructions with the patient. I have addressed all patient concerns at this time. The patient was made aware of what symptoms to monitor for that would warrant a return to the emergency department. Discussed the plan with the patient, they demonstrate verbal understanding and agreement with our assessment and plan at this time. The documentation in this chart was dictated using [employer] dictation software. Please excuse any dictation errors. HPI General Date/Time Provider Initiated Documentation: 09/04/20 01:26 . HPI Narrative: 30-year-old female with a past medical history of asthma presents today for evaluation of cough. Patient states that yesterday she developed a mild sore throat, mild nasal congestion mild cough. She states that the symptoms have been mild however she feels that her asthma is worse because of it. She denies any fever or chills. She denies any significant neck pain or headache. She denies any vomiting or diarrhea. She has received both of her Covid vaccines. She does admit to a positive sick contact which is her significant other who has similar symptoms. No other complaints at this time. No other modifying factors. Denies PE risk factors such as recent long car rides, immobilization, recent surgery, prior history of DVT or PE, family history of PE or DVT, morbid obesity, exogenous estrogen and smoking, hemoptysis, history of cancer. Related Data Home Medications Medication Instructions Recorded Confirmed Pulmicort Flexhaler 180 mcg IN BID 08/23/17 09/04/20 bupropion HCl [Wellbutrin XL] 300 mg PO DAILY 03/20/18 09/04/20 albuterol sulfate [ProAir HFA] 2 puff IN Q4H PRN #0 g 10/24/18 09/04/20 loratadine 10 mg PO DAILY 12/16/18 09/04/20 albuterol sulfate 2.5 mg INHALATION Q4H PRN #0 ml 02/24/19 09/04/20 ibuprofen 400 mg PO PRN PRN 02/24/19 09/04/20 prednisone 50 mg PO DAILY #5 tab 09/04/20 Previous Rx's Medication Instructions Recorded albuterol sulfate [ProAir HFA] 2 puff IN Q4H PRN #0 g 10/24/18 albuterol sulfate 2.5 mg INHALATION Q4H PRN #0 ml 02/24/19 prednisone 50 mg PO DAILY #5 tab 09/04/20 Allergies Allergy/AdvReac Type Severity Reaction Status Date / Time animal dander Allergy Unverified 09/04/20 01:37 pollen extracts Allergy Unverified 09/04/20 01:37 General Stated Complaint: RespSymp KELSEY: 3 Review of Systems All systems reviewed & are unremarkable except as noted in HPI and below PFSH Medical History Asthma Depression Surgical History No pertinent past surgical history Social History Smoking/Tobacco Use Status: Former Tobacco Use Quit Date: 02/05/19 Smoking risk assessment performed?: Yes Alcohol Intake: never Drug use: Never Substance use type: does not use Do you feel safe at home: Yes Do you feel safe in your relationship?: Yes Exam Narrative Exam Narrative: 1.Const: Well-nourished, Well-developed, appearing stated age 2.Eyes: PERRL, no conjunctival injection, and symmetrical lids. 3.ENT: Atraumatic external nose and ears. Moist MM. Neck: Symmetric, trachea midline, No thyromegaly. No evidence of effusion behind the tympanic membranes. No significant erythema in the posterior oropharynx. No tonsillar swelling or exudate 4.CVS: +S1/S2, No murmurs or gallops. Peripheral pulses 2+ and equal in all extremities. Brisk capillary refill in all extremities. 5.RESP: Unlabored respiratory effort. Mild wheezes throughout, no crackles or rhonchi. 6.GI: Soft, Nontender/Nondistended, No hepatosplenomegaly. No guarding or rebound. 7.MSK: Normocephalic/Atraumatic, Extremities w/o deformity or ttp No cyanosis or clubbing, Normal movement of all extremities 8.Skin: Warm, Dry. No rashes or lesions. 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 Sensation grossly intact, no focal neurologic deficits. 10.Psych: (AAO) x3. Appropriate mood and affect Course Vital Signs Vital signs: Vital Signs Temperature 36.6 C 09/04/20 01:34 Pulse 88 09/04/20 01:34 Respiratory Rate 18 09/04/20 01:34 Blood Pressure 117/82 09/04/20 01:34 Pulse Oximetry 100 09/04/20 01:34 Temperature 36.6 C 09/04/20 01:34 Temperature Source Skin 09/04/20 01:34 Pulse 87 09/04/20 01:49 Respiratory Rate 18 09/04/20 01:49 Respiratory Effort Non-Labored 09/04/20 01:38 Blood Pressure 117/82 09/04/20 01:34 Pulse Oximetry 100 09/04/20 01:49 Oxygen Delivery Method Room Air 09/04/20 01:49 Oxygen Flow Rate 0 09/04/20 01:49
[2020-09-04] MEDS: Inhaler, Assist Device 1 EACH MC (01:58)
[2020-09-04 02:08] VITALS: PULSE 98; O2SAT 99
== END 2020-09-04 02:10 | disposition home or self-care (01) ==
PROVIDERS: Emergency Provider Student in an Organized Health Care Education/Training Program; PCP Nurse Practitioner Family
DX: J06.9 Acute upper respiratory infection, unspecified (principal); B97.89 Other viral agents as the cause of diseases classified elsewhere; J45.901 Unspecified asthma with (acute) exacerbation; Z87.891 Personal history of nicotine dependence
CPT/HCPCS: 94640; 99283; J7512; J7620

== ENCOUNTER 2021-01-04 19:37 | Emergency (ER) | payer MEDICAID, SELFPAY ==
[2021-01-04 19:59] VITALS: BP 128/88; PULSE 90; RESP 18; TEMP 37; O2SAT 99
--- NOTE | 2021-01-04 20:00 | ED.GENADUL_ITS ---
Discharge Plan Disposition Patient Disposition: HOME Condition: Good Discharge Details Clinical Impression: Headache Primary Care Provider: Regina Pappas ED Provider: Reuben Steven Meds and New Rx's Prescriptions: Continued Pulmicort Flexhaler 120 PUFF/INH aerosol powdr breath activated 180 mcg IN BID RF: 0 bupropion HCl [Wellbutrin XL] 300 mg Tablet Extended Release 24 Hr 300 mg PO DAILY RF: 0 norgestimate-ethinyl estradiol [Mary] 0.25-35 mg-mcg tablet 1 tab PO DAILY RF: 0 topiramate 25 mg tablet 25 - 50 mg PO BID RF: 0 montelukast 10 mg tablet 10 mg PO DAILY RF: 0 acetylcysteine 600 mg capsule 1,200 mg PO BID RF: 0 albuterol sulfate [ProAir HFA] 8.5 GM HFA aerosol inhaler 2 puff IN Q4H PRN (Reason: Shortness Of Breath Or Wheezing) Qty: 0 RF: 0 loratadine 10 mg Tablet 10 mg PO DAILY RF: 0 ibuprofen 200 mg Tablet 400 mg PO PRN PRNRF: 0 albuterol sulfate 2.5 mg /3 mL (0.083 %) Solution For Nebulization 2.5 mg inhalation Q4H PRNQty: 0 RF: 0 Discharge Instructions Additional Instructions: Resume previous medications. Discuss rescue medication for headache with primary care. We used Compazine today. Return to ED for severe worsening headache, neurologic change, confusion, other concerns. Referrals: Regina Pappas [Primary Care Provider] - Medical Decision Making Patient presenting with frontal, throbbing headache similar to headaches in the past but not relieved over 3 days. Normal vital signs and normal neurologic exam. IV established and patient given fluids, prochlorperazine, ketorolac. Patient with resolution of headache and asking for discharge. Patient to follow-up with primary care as needed. Return to ED for severe worsening headache, mental status change, neurologic change. HPI General Mode of arrival: ambulatory . Date/Time Provider Initiated Documentation: 01/04/21 20:00 . Limitations to Documentation: no limitations . Information obtained by: patient and RN notes reviewed . HPI Narrative: Patient presents to the ED with frontal throbbing headache with associated nausea. She has had this now for 3 days. Has history of same. Takes Topamax to prevent headache. Usually headaches resolve with ibuprofen. This headache has not. She has no associated neurologic changes. She has mild photophobia. She denies fever, cough, URI symptoms, chest pain, shortness of breath. Related Data Home Medications Medication Instructions Recorded Confirmed Pulmicort Flexhaler 180 mcg IN BID 08/23/17 01/04/21 bupropion HCl [Wellbutrin XL] 300 mg PO DAILY 03/20/18 01/04/21 albuterol sulfate [ProAir HFA] 2 puff IN Q4H PRN #0 g 10/24/18 01/04/21 loratadine 10 mg PO DAILY 12/16/18 01/04/21 albuterol sulfate 2.5 mg INHALATION Q4H PRN #0 ml 02/24/19 01/04/21 ibuprofen 400 mg PO PRN PRN 02/24/19 01/04/21 acetylcysteine 1,200 mg PO BID 01/04/21 01/04/21 montelukast 10 mg PO DAILY 01/04/21 01/04/21 norgestimate-ethinyl estradiol 1 tab PO DAILY 01/04/21 01/04/21 [Mary] topiramate 25 - 50 mg PO BID 01/04/21 01/04/21 Previous Rx's Medication Instructions Recorded albuterol sulfate [ProAir HFA] 2 puff IN Q4H PRN #0 g 10/24/18 albuterol sulfate 2.5 mg INHALATION Q4H PRN #0 ml 02/24/19 Allergies Allergy/AdvReac Type Severity Reaction Status Date / Time animal dander Allergy Unverified 09/04/20 01:37 pollen extracts Allergy Unverified 09/04/20 01:37 General KELSEY: 3 Review of Systems Narrative: As documented in HPI otherwise negative as below. Const: no fever, chills, weakness Resp: no cough, SOB, pleuritic pain CV: no CP, diaphoresis, edema, syncope GI: no abdominal pain, vomiting, diarrhea Neuro: no numbness, focal weakness, confusion PFSH Medical History Asthma Depression Surgical History No pertinent past surgical history Social History Smoking/Tobacco Use Status: Former Tobacco Use Quit Date: 02/05/19 Smoking risk assessment performed?: Yes Alcohol Intake: never Drug use: Never Substance use type: does not use Do you feel safe at home: Yes Do you feel safe in your relationship?: Yes Exam Narrative Exam Narrative: Const: WDWN female in NAD. HEENT: NC/AT. Normal facial exam. Eyes: PERRL and EOMI. Normal conjunctiva and sclera. Neck: Supple. Trachea midline. Lungs: Normal respiratory effort. Cor: RRR. Good radial pulses. Neuro: A+O x 3. Normal speech, mentation, gait. Cranial nerves II - XII grossly intact. No gross motor or sensory deficit. Ext: No C/C/E. Skin: Warm and dry without rash.
[2021-01-04] MEDS: Normal Saline 1,000 ML 1000 ML IV (20:32)
[2021-01-04] MEDS: Ketorolac 30 MG/ML VIAL IVP (20:32)
[2021-01-04] MEDS: Prochlorperazine 10 MG/2 ML VIAL IVP (20:33)
[2021-01-04 21:26] VITALS: BP 128/88; PULSE 90; RESP 18; TEMP 37; O2SAT 99
== END 2021-01-04 21:26 | disposition home or self-care (01) ==
PROVIDERS: Emergency Provider Emergency Medicine; PCP Nurse Practitioner Family
DX: R51.9 Headache, unspecified (principal)
CPT/HCPCS: 96361; 96374; 96375; 99284; 99283; J0780; J1885

== ENCOUNTER 2021-01-24 07:56 | Outpatient (REF) | payer MEDICAID, SELFPAY ==
[2021-01-24 21:48] LABS: COVID-19 RT-PCR UVMMC Result Negative (Negative)
== END 2021-01-24 07:57 | disposition home or self-care (01) ==
LOC: NCHCN 07:56
PROVIDERS: PCP Nurse Practitioner Family; Visit Provider Nurse Practitioner Family
DX: Z20.822 Contact with and (suspected) exposure to COVID-19 (principal)
CPT/HCPCS: U0003

== ENCOUNTER 2021-08-18 15:56 | Emergency (ER) | payer MEDICAID, SELFPAY ==
[2021-08-18 15:58] VITALS: BP 122/78; PULSE 89; RESP 16; TEMP 36.7; O2SAT 100
--- NOTE | 2021-08-18 16:15 | DI.RAD_ITS ---
Exam(s) XR FOOT RT COMPLETE EXAM: XR FOOT RT COMPLETE CLINICAL HISTORY: right foot pain, fall one week ago, tender 1 metat. TECHNIQUE: 2D digital imaging was performed. Three views. COMPARISON: No exams were available for comparison FINDINGS: BONES: No acute fracture is present. No bony destructive lesion is seen. JOINTS: No dislocation present. SOFT TISSUE: Normal. IMPRESSION: Unremarkable radiographs of the right foot. DATA REPOSITORY: RADIATION DOSE DELIVERED:
--- NOTE | 2021-08-18 17:02 | ED.GENADUL_ITS ---
Discharge Plan Disposition Patient Disposition: HOME Condition: Stable Discharge Details Clinical Impression: Muscle strain of foot Primary Care Provider: Regina Pappas ED Provider: Kaitlin Paulson Home Meds and New Rx's Prescriptions: Continued Pulmicort Flexhaler 120 PUFF/INH aerosol powdr breath activated 180 mcg IN BID bupropion HCl [Wellbutrin XL] 300 mg Tablet Extended Release 24 Hr 300 mg PO DAILY norgestimate-ethinyl estradiol [Mary] 0.25-35 mg-mcg tablet 1 tab PO DAILY Label Comments: TAKE 1 TABLET BY MOUTH EVERY DAY topiramate 25 mg tablet 25 - 50 mg PO BID Label Comments: TAKE 1 TABLET BY MOUTH TWICE DAILY. MAY INCREASE TO 2 TABLETS BY MOUTH TWICE DAILY TOLERATED montelukast 10 mg tablet 10 mg PO DAILY Label Comments: TAKE 1 TABLET BY MOUTH DAILY acetylcysteine 600 mg capsule 1,200 mg PO BID Label Comments: TAKE 2 CAPSULES BY MOUTH IN THE MORNING AND 2 ADDITIONAL CAPSULES IN THE AFTERNOON/EARLY EVENING NEEDED FOR MOOD albuterol sulfate [ProAir HFA] 8.5 GM HFA aerosol inhaler 2 puff IN Q4H PRN (Reason: Shortness Of Breath Or Wheezing) Qty: 0 0RF loratadine 10 mg Tablet 10 mg PO DAILY ibuprofen 200 mg Tablet 400 mg PO PRN PRN albuterol sulfate 2.5 mg /3 mL (0.083 %) Solution For Nebulization 2.5 mg inhalation Q4H PRNQty: 0 0RF Discharge Instructions Additional Instructions: Weightbearing as tolerated Ibuprofen and Tylenol as needed for pain Repeat assessment in 1 week with persistent pain Referrals: Regina Pappas [Primary Care Provider] - Discharge Data Discharge Date/Time-TO BE ENTERED AT DEPARTURE: 08/18/21 17:39 Medical Decision Making Patient without fracture on x-ray per radiology interpretation and my review Placed in cast shoe for comfort Motrin Tylenol for pain control Reassess in 1 week with persistent pain recommended Medical Records Medical records reviewed: Yes I reviewed the patient's medical records. HPI General Date/Time Provider Initiated Documentation: 08/18/21 16:23 . HPI Narrative: This 31-year-old female presents with right foot pain for the past week. Patient she jumped from approximately 1 foot high log. She landed on her right foot and has had pain since that time. Pain predominantly with walking. Denies any complaints. Denies any chance of . Denies strength or sensation change. Related Data Home Medications Medication Instructions Recorded Confirmed budesonide 180 mcg/actuation 180 mcg IN BID 08/23/17 01/04/21 breath activated powder inhaler (Pulmicort Flexhaler) bupropion HCl 300 mg 24 hr tablet, 300 mg PO DAILY 03/20/18 01/04/21 extended release (Wellbutrin XL) albuterol sulfate 90 mcg/actuation 2 puff IN Q4H PRN Shortness Of 10/24/18 01/04/21 aerosol inhaler (ProAir HFA) Breath Or Wheezing #0 grams loratadine 10 mg tablet 10 mg PO DAILY 12/16/18 01/04/21 albuterol sulfate 2.5 mg/3 mL 2.5 mg (3 mL) inhalation Q4H PRN 02/24/19 01/04/21 (0.083 %) solution for nebulization #0 mL ibuprofen 200 mg tablet 400 mg PO PRN PRN 02/24/19 01/04/21 acetylcysteine 600 mg capsule 1,200 mg PO BID 01/04/21 01/04/21 montelukast 10 mg tablet 10 mg PO DAILY 01/04/21 01/04/21 norgestimate 0.25 mg-ethinyl 1 tab PO DAILY 01/04/21 01/04/21 estradiol 35 mcg tablet (Mary) topiramate 25 mg tablet 25 - 50 mg PO BID 01/04/21 01/04/21 Previous Rx's Medication Instructions Recorded albuterol sulfate 90 mcg/actuation 2 puff IN Q4H PRN Shortness Of 10/24/18 aerosol inhaler (ProAir HFA) Breath Or Wheezing #0 grams albuterol sulfate 2.5 mg/3 mL 2.5 mg (3 mL) inhalation Q4H PRN 02/24/19 (0.083 %) solution for nebulization #0 mL Allergies Allergy/AdvReac Type Severity Reaction Status Date / Time animal dander Allergy Unverified 08/18/21 16:03 pollen extracts Allergy Unverified 08/18/21 16:03 General Stated Complaint: Orthopedic KELSEY: 4 Review of Systems Narrative: Review of systems obtained x3 and negative aside from medication HPI PFSH All Active Problems Viral URI with cough (Acute) Asthma exacerbation (Acute) Headache (Acute) Muscle strain of foot (Acute) No pertinent past surgical history (Chronic) Medical History (Updated 08/18/21 @ 17:01 by DOMITILA Perez) Asthma Depression Social History Smoking/Tobacco Use Status: Former Tobacco Use Quit Date: 02/05/19 Smoking risk assessment performed?: Yes Alcohol Intake: never Drug use: Never Substance use type: does not use Do you feel safe at home: Yes Do you feel safe in your relationship?: Yes Exam Const General: cooperative, comfortable and no acute distress Extrem Other: Right dorsal foot pain and swelling, mild ecchymosis, neurovascularly intact, no tenderness to ankle Course Vital Signs Vital signs: Vital Signs Temperature 36.7 C 08/18/21 15:58 Pulse 89 08/18/21 15:58 Respiratory Rate 16 08/18/21 15:58 Blood Pressure 122/78 08/18/21 15:58 Pulse Oximetry 100 08/18/21 15:58 Temperature 36.7 C 08/18/21 15:58 Temperature Source Skin 08/18/21 15:58 Pulse 89 08/18/21 15:58 Respiratory Rate 16 08/18/21 15:58 Blood Pressure 122/78 08/18/21 15:58 Blood Pressure Position Sitting 08/18/21 15:58 Pulse Oximetry 100 08/18/21 15:58 Oxygen Delivery Method Room Air 08/18/21 15:58 Oxygen Flow Rate 0 08/18/21 15:58 Pain Level 10 08/18/21 15:58 Comment ice, tylenol, ibuprofen 08/18/21 15:58
--- NOTE | 2021-08-18 17:14 | DI.VRAD_ITS ---
PROCEDURE INFORMATION: Exam: XR Right Foot Exam date and time: 08/18/2021 4:41 PM Age: 31 years old Clinical indication: Patient HX: Right foot pain, fall one week ago, tender 1 metat TECHNIQUE: Imaging protocol: Radiologic exam of the Right foot. Views: 3 or more views. COMPARISON: No relevant prior studies available. FINDINGS: Bones/joints: Normal. Soft tissues: Normal. IMPRESSION: 1. No acute findings. 2. No fracture. 3. No significant soft tissue swelling. No soft tissue gas or foreign body. Dictated and Authenticated by: John Nath MD. Ordering:UBALDO Madrigal MD
== END 2021-08-18 17:39 | disposition home or self-care (01) ==
PROVIDERS: Emergency Provider Physician Assistant; PCP Nurse Practitioner Family
DX: S96.811A Strain of other specified muscles and tendons at ankle and foot level, right foot, initial encounter (principal); X50.1XXA Overexertion from prolonged static or awkward postures, initial encounter
CPT/HCPCS: 29515; 99283; 73630

== ENCOUNTER 2022-08-12 19:20 | Emergency (ER) | payer MEDICAID, SELFPAY ==
[2022-08-12 19:25] VITALS: BP 108/73; PULSE 96; RESP 16; TEMP 36.9; O2SAT 100
[2022-08-12 20:17] LABS: Bilirubin Negative (Negative); Blood Negative (Negative); Clarity Clear (Clear); Glucose Negative (Negative); Ketones Negative (Negative); Leukocyte Esterase Negative (Negative); Nitrite Negative (Negative); Urobilinogen 0.2 mg/dL (Up to 0.2)
--- NOTE | 2022-08-12 20:22 | ED.GENADUL_ITS ---
Discharge Plan Disposition Patient Disposition: Home Condition: Improving Discharge Details Chief Complaint: Headache Clinical Impression: Migraine Primary Care Provider: Regina Pappas ED Provider: Placido Perez Home Meds and New Rx's Prescriptions: No Action Pulmicort Flexhaler 120 PUFF/INH aerosol powdr breath activated 180 mcg IN BID bupropion HCl [Wellbutrin XL] 300 mg Tablet Extended Release 24 Hr 300 mg PO DAILY norgestimate-ethinyl estradiol [Mary] 0.25-35 mg-mcg tablet 1 tab PO DAILY Patient Comments: TAKE 1 TABLET BY MOUTH EVERY DAY topiramate 25 mg tablet 25 - 50 mg PO BID Patient Comments: TAKE 1 TABLET BY MOUTH TWICE DAILY. MAY INCREASE TO 2 TABLETS BY MOUTH TWICE DAILY TOLERATED montelukast 10 mg tablet 10 mg PO DAILY Patient Comments: TAKE 1 TABLET BY MOUTH DAILY acetylcysteine 600 mg capsule 1,200 mg PO BID Patient Comments: TAKE 2 CAPSULES BY MOUTH IN THE MORNING AND 2 ADDITIONAL CAPSULES IN THE AFTERNOON/EARLY EVENING NEEDED FOR MOOD albuterol sulfate [ProAir HFA] 8.5 GM HFA aerosol inhaler 2 puff IN Q4H PRN (Reason: Shortness Of Breath Or Wheezing) Qty: 0 0RF loratadine 10 mg Tablet 10 mg PO DAILY ibuprofen 200 mg Tablet 400 mg PO PRN PRN albuterol sulfate 2.5 mg /3 mL (0.083 %) Solution For Nebulization 2.5 mg inhalation Q4H PRNQty: 0 0RF Discharge Instructions Instructions: General Headache (ED) Additional Instructions: Please follow with your primary care physician please return to the emergency department for any worsening symptoms Medical Decision Making 32-year-old female history of recurrent migraines presents with gradual onset headache for the past 2 days generalized in nature associated with photophobia, afebrile nontoxic nonmeningeal neurologically intact. Consider refractory migraine versus tension type headache lower suspicion for encephalitis or meningitis given history and physical lower suspicion for CVA or intracranial bleed given history and physical. Will obtain basic labs will provide fluid anti-inflammatory and sumatriptan. Close reassessment of symptoms. If no improvement consider imaging and further medication otherwise close follow-up with neurology 21: 37 patient resting comfortably feeling better after medications. Patient has close follow-up with her primary care physician. Given home care instructions and return precaution HPI General Date/Time Provider Initiated Documentation: 08/12/22 19:50 . HPI Narrative: 32-year-old female history of recurrent migraines presents with 2 days of headache, generalized in nature, associated with photophobia, no neck pain or fevers. Has tried some medications at home without success Related Data Home Medications Medication Instructions Recorded Confirmed budesonide 180 mcg/actuation 180 mcg IN BID 08/23/17 01/04/21 breath activated powder inhaler (Pulmicort Flexhaler) bupropion HCl 300 mg 24 hr tablet, 300 mg PO DAILY 03/20/18 01/04/21 extended release (Wellbutrin XL) albuterol sulfate 90 mcg/actuation 2 puff IN Q4H PRN Shortness Of 10/24/18 01/04/21 aerosol inhaler (ProAir HFA) Breath Or Wheezing #0 grams loratadine 10 mg tablet 10 mg PO DAILY 12/16/18 01/04/21 albuterol sulfate 2.5 mg/3 mL 2.5 mg (3 mL) inhalation Q4H PRN 02/24/19 01/04/21 (0.083 %) solution for nebulization #0 mL ibuprofen 200 mg tablet 400 mg PO PRN PRN 02/24/19 01/04/21 acetylcysteine 600 mg capsule 1,200 mg PO BID 01/04/21 01/04/21 montelukast 10 mg tablet 10 mg PO DAILY 01/04/21 01/04/21 norgestimate 0.25 mg-ethinyl 1 tab PO DAILY 01/04/21 01/04/21 estradiol 35 mcg tablet (Mary) topiramate 25 mg tablet 25 - 50 mg PO BID 01/04/21 01/04/21 Previous Rx's Medication Instructions Recorded albuterol sulfate 90 mcg/actuation 2 puff IN Q4H PRN Shortness Of 10/24/18 aerosol inhaler (ProAir HFA) Breath Or Wheezing #0 grams albuterol sulfate 2.5 mg/3 mL 2.5 mg (3 mL) inhalation Q4H PRN 02/24/19 (0.083 %) solution for nebulization #0 mL Allergies Allergy/AdvReac Type Severity Reaction Status Date / Time animal dander Allergy Unverified 08/18/21 16:03 pollen extracts Allergy Unverified 08/18/21 16:03 General Stated Complaint: Headache KELSEY: 3 Review of Systems Narrative: Review of Systems Constitutional: negative Eyes: negative ENT: negative Cardiovascular: negative Respiratory: negative Gastrointestinal: negative : negative Musculoskeletal: negative Skin: negative Neurologic: Headache Psych: negative PFSH All Active Problems Viral URI with cough (Acute) Asthma exacerbation (Acute) Headache (Acute) Migraine (Chronic) No pertinent past surgical history (Chronic) Medical History (Updated 08/12/22 @ 21:38 by Placido Perez MD) Asthma Depression Social History Smoking/Tobacco Use Status: Former Tobacco Use Quit Date: 02/05/19 Smoking risk assessment performed?: Yes Alcohol Intake: never Drug use: Never Substance use type: does not use Do you feel safe at home: Yes Do you feel safe in your relationship?: Yes Exam Narrative Exam Narrative: Physical Examination General: alert, awake, cooperative, resting comfortably, no acute distress HEENT: normocephalic, atraumatic; PERRL, EOM intact, conjunctiva normal; no nasal discharge Neck: supple, trachea midline; full ROM Skin: no lesions, rashes or trauma appreciated Neuro: AAOx3, normal speech, moving all extremities Psych: Appropriate mood and affect Course Vital Signs Vital signs: Vital Signs Temperature 36.9 C 08/12/22 19:25 Pulse 96 H 08/12/22 19:25 Respiratory Rate 16 08/12/22 19:25 Blood Pressure 108/73 08/12/22 19:25 Pulse Oximetry 100 08/12/22 19:25 Temperature 36.9 C 08/12/22 19:25 Temperature Source Tympanic 08/12/22 19:25 Pulse 96 H 08/12/22 19:25 Respiratory Rate 16 08/12/22 19:25 Respiratory Effort Normal 08/12/22 19:30 Blood Pressure 108/73 08/12/22 19:25 Blood Pressure Position Supine 08/12/22 19:25 Pulse Oximetry 100 08/12/22 19:25 Pain Level 9 08/12/22 19:30 Lab/Test Results Lab/Test Results: Laboratory Tests Range/Units 08/12/22 20:05 Urine Color (Yellow) Yellow Urine Clarity (Clear) Clear Urine pH (5-8) 6.0 Ur Specific [place] (1.005-1.025) 1.010 Urine Protein (Negative) mg/dL Negative Urine Ketones (Negative) mg/dL Negative Urine Blood (Negative) Negative Urine Nitrite (Negative) Negative Urine Bilirubin (Negative) Negative Urine Urobilinogen (Up to 0.2) mg/dL 0.2 Ur Leukocyte Esterase (Negative) Negative Urine Glucose (Negative) mg/dL Negative POC- Test(urine) Negative
[2022-08-12] MEDS: Dexamethasone 10 MG/ML VIAL IVP (20:31)
[2022-08-12] MEDS: SUMAtriptan 6 MG/0.5 ML VIAL SC (20:31)
[2022-08-12] MEDS: LORazepam 2 MG/ML VIAL 0.5 MG IVP (20:32)
[2022-08-12] MEDS: Normal Saline 1,000 ML 1000 ML IV (20:33)
[2022-08-12 20:41] LABS: Abs Immature Grans 0.03 10^3/uL (0.0-0.06); Absolute Basophil Count 0.08 10^3/uL (0.0-0.2); Basophils % 0.7; Eosinophils % 11.5; HGB 14.5 g/dL (11.2-15.7); Immature Grans % 0.3; Lymphocytes % 16.6; MCH 32.1 pg (27.0-33.0); MCHC 35.4 % (32.0-36.0); MCV 91 fL (80-95); MPV 9.6 fL (8.0-11.0); Monocytes % 6.1; Neutrophils % 64.8; Platelet Count 304 10^3/uL (130-400); RBC 4.52 10^6/uL (3.93-5.22); RDW 11.6 % (11.7-14.6); RDW-SD 38.3 fL; WBC 11.44 10^3/uL (4.4-10.8)
[2022-08-12 20:42] LABS: Absolute Eosinophil Count 1.32 10^3/uL (0.0-0.7); Absolute Neutrophil Count 7.41 10^3/uL (1.2-6.7)
[2022-08-12 20:57] LABS: ALT 21 U/L (14-59); AST 14 U/L (15-37); Albumin 4.4 g/dL (3.4-5.0); Alkaline Phosphatase 70 U/L (46-116); Anion Gap 10.6 mmol/L (3-11); BUN 8 mg/dL (7-18); Bilirubin, Total 0.6 mg/dL (0.2-1.0); CO2 24.4 mmol/L (21.0-32.0); CREATININE 0.8 mg/dL (0.55-1.02); Calcium 8.8 mg/dL (8.5-10.1); Chloride 104 mmol/L (98-107); Estimated GFR 99.71 (mL/min/1.73m2); Glucose 79 mg/dL (74-106); Potassium 3.4 mmol/L (3.5-5.1); Sodium 139 mmol/L (136-145); Total Protein 8.1 g/dL (6.4-8.2)
[2022-08-12 21:46] VITALS: BP 106/72; PULSE 92; RESP 16; O2SAT 100
== END 2022-08-12 21:48 | disposition home or self-care (01) ==
PROVIDERS: Emergency Provider Emergency Medicine; PCP Nurse Practitioner Family
DX: G43.909 Migraine, unspecified, not intractable, without status migrainosus (principal)
CPT/HCPCS: 36415; 80053; 81025; 96361; 96372; 96374; 96375; 99284; 81003; 85025; J1100; J2060

== ENCOUNTER 2023-01-06 18:29 | Emergency (ER) | payer MEDICAID, SELFPAY ==
[2023-01-06 18:38] VITALS: BP 135/90; PULSE 89; RESP 15; TEMP 36.7; O2SAT 99
--- OUTSIDE RECORDS SUMMARY | 2023-01-06 18:47 | XMS_ITS | CCD ---
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 Allergies Allergy Code Allergy Type Reaction Status CAT HAIR EXTRACT 597572 Drug allergy ITCHY EYES Active Procedures Unknown or Not Available. History of Immunizations Immunization Code Date Tdap 115 05/24/2011 Problems No Known Problems Results Unknown or Not Available. Active Medications Unknown or Not Available. Medications Administered During Visit Unknown or Not Available. Encounters Encounter Diagnosis Diagnosis Code Start Date Procedure and treatment not carried out because of patient's decision for other reasons [id number] 01/24/2021 Social History Smoking Status Code Start Date End Date Current every day smoker [id number] 2005 Patient Decision Aids Unknown or Not Available. Discharge Instructions You were admitted to [facility] on 01/24/2021 13:27 with a principal diagnosis of Procedure and treatment not carried out because of patient's decision for other reasons You were discharged from [facility] on 01/24/2021 13:27 Should you have any questions prior to discharge, please contact a member of your healthcare team. If you have left the hospital and have any questions, please contact your primary care physician. Chief Complaint and Reason For Visit Chief Complaint Date of Onset LAPAROSCOPIC TUBAL LIGATION W/ SALPINGEC TOMIES OP Function Status Unknown or Not Available. Plan of Care Unknown or Not Available. Referral/Transition of Care Unknown or Not Available.
--- OUTSIDE RECORDS SUMMARY | 2023-01-06 18:47 | XMS_ITS | CCD ---
Author Name Unknown Address [address] [place] [address] [phone] Organization Unknown Address [address] [place] [address] [id number] Care Team Providers Care Hollow Ware Maker Name Role Phone RAY VARELA Attending Physician [phone] RAY VARELA Rounding (Secondary) Physician [phone] Vital Signs Unknown or Not Available. Allergies Allergy Code Allergy Type Reaction Status CAT HAIR EXTRACT 620733 Drug allergy ITCHY EYES Active Procedures Unknown or Not Available. History of Immunizations Immunization Code Date Tdap 115 05/24/2011 Problems No Known Problems Results Unknown or Not Available. Active Medications Unknown or Not Available. Medications Administered During Visit Unknown or Not Available. Encounters Encounter Diagnosis Diagnosis Code Start Date Encounter for other preprocedural examination [id number] 01/15/2021 Social History Smoking Status Code Start Date End Date Current every day smoker [id number] 2005 Patient Decision Aids Unknown or Not Available. Discharge Instructions You were admitted to [facility] on 01/15/2021 09:45 with a principal diagnosis of Encounter for other preprocedural examination You were discharged from [facility] on 01/15/2021 09:46 Should you have any questions prior to discharge, please contact a member of your healthcare team. If you have left the hospital and have any questions, please contact your primary care physician. Chief Complaint and Reason For Visit Unknown or Not Available. Function Status Unknown or Not Available. Plan of Care Unknown or Not Available. Referral/Transition of Care Unknown or Not Available.
--- NOTE | 2023-01-06 18:49 | ED.GENADUL_ITS ---
Discharge Plan Disposition Patient Disposition: Home Condition: Stable Discharge Details Clinical Impression: Asthma exacerbation, Sinusitis Primary Care Provider: Regina Pappas ED Provider: Zari Suresh Home Meds and New Rx's Prescriptions: New amoxicillin-pot clavulanate 875-125 mg tablet 1 tab PO BID Qty: 14 0RF prednisone 20 mg tablet 40 mg PO DAILY Qty: 10 0RF Continued Pulmicort Flexhaler 120 PUFF/INH aerosol powdr breath activated 180 mcg IN BID bupropion HCl [Wellbutrin XL] 300 mg Tablet Extended Release 24 Hr 300 mg PO DAILY norgestimate-ethinyl estradiol [Mary] 0.25-35 mg-mcg tablet 1 tab PO DAILY Patient Comments: TAKE 1 TABLET BY MOUTH EVERY DAY topiramate 25 mg tablet 25 - 50 mg PO BID Patient Comments: TAKE 1 TABLET BY MOUTH TWICE DAILY. MAY INCREASE TO 2 TABLETS BY MOUTH TWICE DAILY TOLERATED montelukast 10 mg tablet 10 mg PO DAILY Patient Comments: TAKE 1 TABLET BY MOUTH DAILY acetylcysteine 600 mg capsule 1,200 mg PO BID Patient Comments: TAKE 2 CAPSULES BY MOUTH IN THE MORNING AND 2 ADDITIONAL CAPSULES IN THE AFTERNOON/EARLY EVENING NEEDED FOR MOOD albuterol sulfate [ProAir HFA] 8.5 GM HFA aerosol inhaler 2 puff IN Q4H PRN (Reason: Shortness Of Breath Or Wheezing) Qty: 0 0RF loratadine 10 mg Tablet 10 mg PO DAILY ibuprofen 200 mg Tablet 400 mg PO PRN PRN albuterol sulfate 2.5 mg /3 mL (0.083 %) Solution For Nebulization 2.5 mg inhalation Q4H PRNQty: 0 0RF Discharge Instructions Instructions: Asthma (ED), Sinusitis (ED) Additional Instructions: continue to use inhalers as directed for symptoms push fluids to stay well hydrated. take antibiotics as prescribed, even if you feel better. Stand Alone Forms: Work Release Referrals: Regina Pappas [Primary Care Provider] - Medical Decision Making This is a 32-year-old with history of asthma on Pulmicort inhaler with as needed albuterol who presents with over 2-week history of nasal congestion and sinus pr essure. She has had chills and malaise.'s feels her symptoms are worsening. Lung sounds with scattered wheezing throughout normal course breath sounds or rhonchi noted. Is oxygenating well on room air. Due to her course of illness with sinus pressure and congestion for greater than 2 weeks of things reasonable to treat with antibiotics. We will treat with a 1 week course of Augmentin. She does appear also to be in a mild asthma exacerbation so treating with a burst of steroids. I doubt a pneumonia but Augmentin should cover. Tolerating good p.o. and hemodynamically stable safe for discharge to home with outpatient treatment Differential Diagnosis Differential Diagnosis: Viral upper respiratory viral illness, pneumonia, si nusitis, asthma exac Medical Records Medical records reviewed: Yes I reviewed the patient's medical records. HPI General Mode of arrival: ambulatory . Date/Time Provider Initiated Documentation: 01/06/23 18:32 . Limitations to Documentation: no limitations . Information obtained by: patient . HPI Narrative: This is a 32-year-old female former smoker who presents to the emergency department for evaluation of 2 weeks or greater of upper respiratory viral illness including nasal congestion fatigue malaise cough. She states her symptoms are not improving and possibly worsening. 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 Reports she quit smoking 4 years ago. Has been using her inhaler with no improvement in symptoms Related Data Home Medications Medication Instructions Recorded Confirmed budesonide 180 mcg/actuation 180 mcg IN BID 08/23/17 01/06/23 breath activated powder inhaler (Pulmicort Flexhaler) bupropion HCl 300 mg 24 hr tablet, 300 mg PO DAILY 03/20/18 01/06/23 extended release (Wellbutrin XL) albuterol sulfate 90 mcg/actuation 2 puff IN Q4H PRN Shortness Of 10/24/18 01/06/23 aerosol inhaler (ProAir HFA) Breath Or Wheezing #0 grams loratadine 10 mg tablet 10 mg PO DAILY 12/16/18 01/06/23 albuterol sulfate 2.5 mg/3 mL 2.5 mg (3 mL) inhalation Q4H PRN 02/24/19 01/06/23 (0.083 %) solution for nebulization #0 mL ibuprofen 200 mg tablet 400 mg PO PRN PRN 02/24/19 01/06/23 acetylcysteine 600 mg capsule 1,200 mg PO BID 01/04/21 01/06/23 montelukast 10 mg tablet 10 mg PO DAILY 01/04/21 01/06/23 norgestimate 0.25 mg-ethinyl 1 tab PO DAILY 01/04/21 01/06/23 estradiol 35 mcg tablet (Mary) topiramate 25 mg tablet 25 - 50 mg PO BID 01/04/21 01/06/23 amoxicillin 875 mg-potassium 1 tab PO BID #14 tabs 01/06/23 clavulanate 125 mg tablet prednisone 20 mg tablet 40 mg (2 x 20 mg) PO DAILY #10 tabs 01/06/23 Previous Rx's Medication Instructions Recorded albuterol sulfate 90 mcg/actuation 2 puff IN Q4H PRN Shortness Of 10/24/18 aerosol inhaler (ProAir HFA) Breath Or Wheezing #0 grams albuterol sulfate 2.5 mg/3 mL 2.5 mg (3 mL) inhalation Q4H PRN 02/24/19 (0.083 %) solution for nebulization #0 mL amoxicillin 875 mg-potassium 1 tab PO BID #14 tabs 01/06/23 clavulanate 125 mg tablet prednisone 20 mg tablet 40 mg (2 x 20 mg) PO DAILY #10 tabs 01/06/23 Allergies Allergy/AdvReac Type Severity Reaction Status Date / Time animal dander Allergy Unverified 01/06/23 18:40 pollen extracts Allergy Unverified 01/06/23 18:40 General Stated Complaint: RespSymp KELSEY: 4 Review of Systems All systems reviewed & are unremarkable except as noted in HPI and below PFSH All Active Problems Sinusitis (Acute) Headache (Acute) Asthma exacerbation (Acute) Viral URI with cough (Acute) No pertinent past surgical history (Chronic) Medical History (Updated 01/06/23 @ 18:55 by Zari Suresh NP) Depression Asthma Social History Smoking/Tobacco Use Status: Former Tobacco Use Quit Date: 02/05/19 Smoking risk assessment performed?: Yes Alcohol Intake: never Drug use: Never Substance use type: does not use Do you feel safe at home: Yes Do you feel safe in your relationship?: Yes Exam Const General: ill appearing acutely Nutritional Appearance: average body habitus Orientation: alert, awake and oriented x3 HENMT Head: normal to inspection, normocephalic and atraumatic General nose exam: external nose normal Face and sinus: no sinus tenderness Mouth: oral mucosae normal Eyes General: appearance normal, both eyes and all related structures Chest Chest: normal inspection of the chest Resp Effort & Inspection: normal respiratory effort Auscultation: no rhonchi and wheezes scattered wheezes Cardio Rate: regular rate Rhythm: regular rhythm Skin General skin exam: no rashes or lesions noted Neuro General: patient alert, patient awake and patient oriented x3 Course Vital Signs Vital signs: Vital Signs Temperature 36.7 C 01/06/23 18:38 Pulse 89 01/06/23 18:38 Respiratory Rate 15 01/06/23 18:38 Blood Pressure 135/90 01/06/23 18:38 Pulse Oximetry 99 01/06/23 18:38 Temperature 36.7 C 01/06/23 18:38 Temperature Source Temporal Artery Scan 01/06/23 18:38 Pulse 89 01/06/23 18:38 Respiratory Rate 15 01/06/23 18:38 Respiratory Effort Non-Labored, Short of Breath 01/06/23 18:42 Respiratory Depth Normal 01/06/23 18:42 Blood Pressure 135/90 01/06/23 18:38 Blood Pressure Position Sitting 01/06/23 18:38 Pulse Oximetry 99 01/06/23 18:38 Oxygen Delivery Method Room Air 01/06/23 18:38 Oxygen Flow Rate 0 01/06/23 18:38 Pain Level 0 01/06/23 18:38
[2023-01-06 18:58] LABS: Source Nasal/Nares
[2023-01-06] MEDS: Amoxicillin 875/Clav. 125 TAB PO (18:58)
[2023-01-06] MEDS: predniSONE 20 MG TAB 40 MG PO (18:58)
[2023-01-06 19:28] LABS: COVID-19 PCR Negative (Negative)
== END 2023-01-06 19:48 | disposition home or self-care (01) ==
PROVIDERS: Emergency Provider Nurse Practitioner Acute Care; PCP Nurse Practitioner Family
DX: J45.901 Unspecified asthma with (acute) exacerbation (principal); J32.9 Chronic sinusitis, unspecified; Z87.891 Personal history of nicotine dependence; Z20.822 Contact with and (suspected) exposure to COVID-19
CPT/HCPCS: 87635; 99283; 99282; J7512

== ENCOUNTER 2023-03-06 18:22 | Emergency (ER) | payer MEDICAID, SELFPAY ==
[2023-03-06 18:28] VITALS: BP 107/79; PULSE 90; RESP 14; TEMP 36.7; O2SAT 100
--- OUTSIDE RECORDS SUMMARY | 2023-03-06 18:32 | XMS_ITS | CCD ---
Author Name Unknown Address [address] [place] [address] [phone] Organization Unknown Address [address] [place] [address] [id number] Care Team Providers Care Zone Manager Name Role Phone RAY VARELA Attending Physician [phone] RAY VARELA Rounding (Secondary) Physician [phone] Vital Signs Unknown or Not Available. Allergies Allergy Code Allergy Type Reaction Status CAT HAIR EXTRACT 544816 Drug allergy ITCHY EYES Active Procedures Unknown [...] Date End Date Current every day smoker [id number] 2005 Patient Decision Aids Unknown or Not Available. Discharge Instructions You were admitted to [facility] on 01/15/2021 09:45 with a principal diagnosis of Encounter for other preprocedural examination You were discharged from [facility] on 01/15/2021 09:46 Should [...]
--- OUTSIDE RECORDS SUMMARY | 2023-03-06 18:32 | XMS_ITS | CCD ---
Author Name Unknown Address [address] [place] [address] [id number] Organization Unknown Address [address] [place] [address] [phone] Care Team Providers Care Audio Visual Collections Coordinator Name Role Phone RAY VARELA Attending Physician [phone] Vital Signs Unknown or Not Available. Allergies Allergy Code Allergy Type Reaction Status CAT HAIR EXTRACT 769413 Drug allergy ITCHY EYES Active Procedures Unknown [...] Date End Date Current every day smoker [id number] 2005 Patient Decision Aids Unknown or Not Available. Discharge Instructions You were admitted to [facility] on 01/24/2021 13:27 with a principal diagnosis of Procedure and treatment not carried out because of patient's decision for other reasons You were discharged from [facility] on 01/24/2021 13:27 Should you have [...]
--- NOTE | 2023-03-06 19:15 | W.ED.GENAD ---
HPI General Stated Complaint: Headache KELSEY: 4 Date/Time Provider Initiated Documentation: 03/06/23 18:28. HPI Narrative: 33-year-old female history of recurrent migraines presents with headache frontotemporal in nature over the last couple of days has taken her usual migraine meds that have not worked. Denies fevers chills nausea vomiting weakness numbness or change in speech. Feels like her prior migraines. Related Data Home Medications Medication Instructions Recorded Confirmed budesonide 180 mcg/actuation 180 mcg IN BID 08/23/17 03/06/23 breath activated powder inhaler (Pulmicort Flexhaler) bupropion HCl 300 mg 24 hr tablet, 300 mg PO DAILY 03/20/18 03/06/23 extended release (Wellbutrin XL) albuterol sulfate 90 mcg/actuation 2 puff IN Q4H PRN Shortness Of 10/24/18 03/06/23 aerosol inhaler (ProAir HFA) Breath Or Wheezing #0 grams loratadine 10 mg tablet 10 mg PO DAILY 12/16/18 03/06/23 albuterol sulfate 2.5 mg/3 mL 2.5 mg (3 mL) inhalation Q4H PRN 02/24/19 03/06/23 (0.083 %) solution for nebulization #0 mL ibuprofen 200 mg tablet 400 mg PO PRN PRN 02/24/19 03/06/23 acetylcysteine 600 mg capsule 1,200 mg PO BID 01/04/21 03/06/23 montelukast 10 mg tablet 10 mg PO DAILY 01/04/21 03/06/23 norgestimate 0.25 mg-ethinyl 1 tab PO DAILY 01/04/21 03/06/23 estradiol 35 mcg tablet (Mary) topiramate 25 mg tablet 25 - 50 mg PO BID 01/04/21 03/06/23 Previous Rx's Medication Instructions Recorded albuterol sulfate 90 mcg/actuation 2 puff IN Q4H PRN Shortness Of 10/24/18 aerosol inhaler (ProAir HFA) Breath Or Wheezing #0 grams albuterol sulfate 2.5 mg/3 mL 2.5 mg (3 mL) inhalation Q4H PRN 02/24/19 (0.083 %) solution for nebulization #0 mL Allergies Allergy/AdvReac Type Severity Reaction Status Date / Time animal dander Allergy Unverified 01/06/23 18:40 pollen extracts Allergy Unverified 01/06/23 18:40 Review of Systems Narrative: Review of Systems Constitutional: negative Eyes: negative ENT: negative Cardiovascular: negative Respiratory: negative Gastrointestinal: negative : negative Musculoskeletal: negative Skin: negative Neurologic: Headache Psych: negative PFSH All Active Problems Migraine (Chronic) Headache (Acute) Asthma exacerbation (Acute) Viral URI with cough (Acute) No pertinent past surgical history (Chronic) Medical History (Updated 03/06/23 @ 20:37 by Placido Perez MD) Depression Asthma Social History Smoking/Tobacco Use Status: Former Tobacco Use Quit Date: 02/05/19 Smoking risk assessment performed?: Yes Alcohol Intake: never Drug use: Never Substance use type: does not use Do you feel safe at home: Yes Do you feel safe in your relationship?: Yes Exam Narrative Exam Narrative: Physical Examination General: alert, awake, cooperative, resting comfortably, no acute distress HEENT: normocephalic, atraumatic; PERRL, EOM intact, conjunctiva normal; no nasal discharge; moist mucous membranes, oral and pharyngeal mucosa normal, tolerating secretions Neck: supple, trachea midline; full ROM, no meningeal Chest: normal to inspection Respiratory: normal respiratory effort, speaking in full sentences, clear to auscultation, no wheezing, rales or rhonchi Cardiac: regular rate, regular rhythm, S1S2 intact, no murmurs rubs or gallops GI: abdomen soft, non-tender, non-distended; no palpable mass or hepatosplenomegaly Skin: no lesions, rashes or trauma appreciated Neuro: AAOx3, normal speech, moving all extremities, cranial nerves II through XII intact, 5-5 strength upper and lower extremities bilaterally, no ataxia Psych: Appropriate mood and affect Course Vital Signs Vital signs: Vital Signs Temperature 36.7 C 03/06/23 18:28 Pulse 90 03/06/23 18:28 Respiratory Rate 14 03/06/23 18:28 Blood Pressure 107/79 03/06/23 18:28 Pulse Oximetry 100 03/06/23 18:28 Temperature 36.7 C 03/06/23 18:28 Temperature Source Tympanic 03/06/23 18:28 Pulse 90 03/06/23 18:28 Respiratory Rate 14 03/06/23 18:28 Respiratory Effort Normal 03/06/23 18:30 Blood Pressure 107/79 03/06/23 18:28 Blood Pressure Position Sitting 03/06/23 18:28 Pulse Oximetry 100 03/06/23 18:28 Oxygen Delivery Method Room Air 03/06/23 18:28 Oxygen Flow Rate 0 03/06/23 18:28 Pain Level 10 03/06/23 18:30 Medical Decision Making 33-year-old female history of migraines presents with frontotemporal headache over the past couple of days, home meds not working, no nausea vomiting fevers chills neck stiffness weakness numbness or change in speech, patient is alert oriented nonmeningeal, nonfocal neurologic examination. History and physical consistent with migraine headache. Must also consider tension type headache. Low suspicion for temporal arteritis cluster headache encephalitis or meningitis. No evidence of CVA. Trial of fluids metoclopramide dexamethasone Benadryl. Consider benzodiazepine if refractory. Consider triptan although patient says they have not helped in the past. Given IV placement for fluids and meds will draw basic labs. Will hold on any imaging at this time until reassessment 20: 36 patient feeling better after medications. Resting open acute distress. Neurologically intact. Home care instructions and return precautions given Quality:SDOH Health Related Social Needs: No Data to Display Discharge Plan Disposition Patient Disposition: Home Condition: Improving Discharge Details Chief Complaint: Headache Clinical Impression: Migraine Primary Care Provider: Regina Pappas ED Provider: Placido Perez Home Meds and New Rx's Prescriptions: No Action Pulmicort Flexhaler 120 PUFF/INH aerosol powdr breath activated 180 mcg IN BID bupropion HCl [Wellbutrin XL] 300 mg Tablet Extended Release 24 Hr 300 mg PO DAILY norgestimate-ethinyl estradiol [Mary] 0.25-35 mg-mcg tablet 1 tab PO DAILY Patient Comments: TAKE 1 TABLET BY MOUTH EVERY DAY topiramate 25 mg tablet 25 - 50 mg PO BID Patient Comments: TAKE 1 TABLET BY MOUTH TWICE DAILY. MAY INCREASE TO 2 TABLETS BY MOUTH TWICE DAILY TOLERATED montelukast 10 mg tablet 10 mg PO DAILY Patient Comments: TAKE 1 TABLET BY MOUTH DAILY acetylcysteine 600 mg capsule 1,200 mg PO BID Patient Comments: TAKE 2 CAPSULES BY MOUTH IN THE MORNING AND 2 ADDITIONAL CAPSULES IN THE AFTERNOON/EARLY EVENING NEEDED FOR MOOD albuterol sulfate [ProAir HFA] 8.5 GM HFA aerosol inhaler 2 puff IN Q4H PRN (Reason: Shortness Of Breath Or Wheezing) Qty: 0 0RF loratadine 10 mg Tablet 10 mg PO DAILY ibuprofen 200 mg Tablet 400 mg PO PRN PRN albuterol sulfate 2.5 mg /3 mL (0.083 %) Solution For Nebulization 2.5 mg inhalation Q4H PRNQty: 0 0RF Discharge Instructions Instructions: Migraine Headache (ED) Additional Instructions: Please follow-up with your primary care physician. Return to the emergency department for any worsening symptoms
[2023-03-06] MEDS: Dexamethasone 10 MG/ML VIAL IVP (19:16)
[2023-03-06] MEDS: diphenhydrAMINE 50 MG/ML VIAL 25 MG IVP (19:17)
[2023-03-06] MEDS: Normal Saline 1,000 ML 1000 ML IV (19:17)
[2023-03-06] MEDS: Metoclopramide 10 MG/2 ML VIAL IVP (19:17)
[2023-03-06 19:22] LABS: Abs Immature Grans 0.02 10^3/uL (0.0-0.06); Basophils % 1.2; Eosinophils % 13.4; HCT 39.3 % (36.0-46.0); HGB 13.8 g/dL (11.2-15.7); Immature Grans % 0.2; Lymphocytes % 21.9; MCH 31.2 pg (27.0-33.0); MCHC 35.1 % (32.0-36.0); MCV 89 fL (80-95); MPV 9.7 fL (8.0-11.0); Monocytes % 6.1; Neutrophils % 57.2; Platelet Count 336 10^3/uL (130-400); RBC 4.43 10^6/uL (3.93-5.22); RDW 11.8 % (11.7-14.6); RDW-SD 37.4 fL; WBC 8.22 10^3/uL (4.4-10.8)
[2023-03-06 19:44] LABS: ALT 15 U/L (14-59); AST 12 U/L (15-37); Albumin 3.5 g/dL (3.4-5.0); Alkaline Phosphatase 53 U/L (46-116); Anion Gap 8.7 mmol/L (3-11); BUN 10 mg/dL (7-18); Bilirubin, Total 0.2 mg/dL (0.2-1.0); CO2 26.3 mmol/L (21.0-32.0); CREATININE 0.8 mg/dL (0.55-1.02); Calcium 8.8 mg/dL (8.5-10.1); Chloride 107 mmol/L (98-107); Estimated GFR 99.09 (mL/min/1.73m2); Glucose 100 mg/dL (74-106); Potassium 3.9 mmol/L (3.5-5.1); Sodium 142 mmol/L (136-145); Total Protein 7.1 g/dL (6.4-8.2)
== END 2023-03-06 20:45 | disposition home or self-care (01) ==
PROVIDERS: Emergency Provider Emergency Medicine; PCP Nurse Practitioner Family
DX: G43.909 Migraine, unspecified, not intractable, without status migrainosus (principal); R11.0 Nausea
CPT/HCPCS: 36415; 80053; 96361; 96374; 96375; 99284; 85025; 99283; J1100; J1200; J2765

== ENCOUNTER 2023-06-11 18:26 | Emergency (ER) | payer MEDICAID, SELFPAY ==
[2023-06-11 18:31] VITALS: BP 134/89; PULSE 96; RESP 14; TEMP 36.1; O2SAT 99
--- NOTE | 2023-06-11 18:45 | ED.GENADUL_ITS ---
Discharge Plan Disposition Patient Disposition: Home Condition: Stable Discharge Details Clinical Impression: Respiratory syncytial virus Primary Care Provider: Regina Pappas ED Provider: Darnell Mesa Home Meds and New Rx's Prescriptions: New prednisone 20 mg tablet 40 mg PO DAILY 4 Days Qty: 8 0RF Continued Pulmicort Flexhaler 120 PUFF/INH aerosol powdr breath activated 180 mcg IN BID bupropion HCl [Wellbutrin XL] 300 mg Tablet Extended Release 24 Hr 300 mg PO DAILY norgestimate-ethinyl estradiol [Mary] 0.25-35 mg-mcg tablet 1 tab PO DAILY Patient Comments: TAKE 1 TABLET BY MOUTH EVERY DAY topiramate 25 mg tablet 25 - 50 mg PO BID Patient Comments: TAKE 1 TABLET BY MOUTH TWICE DAILY. MAY INCREASE TO 2 TABLETS BY MOUTH TWICE DAILY TOLERATED montelukast 10 mg tablet 10 mg PO DAILY Patient Comments: TAKE 1 TABLET BY MOUTH DAILY acetylcysteine 600 mg capsule 1,200 mg PO BID Patient Comments: TAKE 2 CAPSULES BY MOUTH IN THE MORNING AND 2 ADDITIONAL CAPSULES IN THE AFTERNOON/EARLY EVENING NEEDED FOR MOOD albuterol sulfate [ProAir HFA] 8.5 GM HFA aerosol inhaler 2 puff IN Q4H PRN (Reason: Shortness Of Breath Or Wheezing) Qty: 0 0RF loratadine 10 mg Tablet 10 mg PO DAILY ibuprofen 200 mg Tablet 400 mg PO PRN PRN albuterol sulfate 2.5 mg /3 mL (0.083 %) Solution For Nebulization 2.5 mg inhalation Q4H PRNQty: 0 0RF Discharge Instructions Instructions: Respiratory Syncytial Virus (ED) Additional Instructions: You were seen in the emergency department for your RSV infection. This is likely the cause of your cough. This will likely cleared up in about 7 to 10 days. Please continue your at home inhaler use, take kaat-btf-mhnis[place] cough medicines like Mucinex, please use therapeutic dosing of Tylenol (acetamenophen) & Advil (ibuprofen) in an alternating fashion as follows: Take 1000mg of Tylenol every 6 hours without missing doses- that is 4 times per day. [place] in between the Tylenol dosings, take 400-600mg of Advil also on a 6 hour schedule, that is also 4 times per day. The daily maximum dosing of Tylenol is 4000mg, and the daily maximum dosing of Advil is 2400mg. This is safe to do for weeks. Please note that some common cold medications & prescription pain medications may contain acetamenophen and you need to read OTC drug labels and factor that in to maximum daily dosings. Please return to the emergency department for any severe increase in respiratory distress, high fevers not responding to antipyretics Referrals: Regina Pappas [Primary Care Provider] - HPI General Date/Time Provider Initiated Documentation: 06/11/23 18:45 . HPI Narrative: 33 year-old female presents to ED today by POV/ambulating with a chief complaint of cough, mild shortness of breath with onset one week ago. Quality described as productive yellow cough, no radiation to high fever, profound lethargy, nausea/vomiting, chest pain, syncope. Severity is described as moderate. Palliating factors include nothing specifics. Provoking factors include nothing specific. Events leading up to the incident/Associated Symptoms: [ ]. Patient not anticoagulated. Related Data Home Medications Medication Instructions Recorded Confirmed budesonide 180 mcg/actuation 180 mcg IN BID 08/23/17 06/11/23 breath activated powder inhaler (Pulmicort Flexhaler) bupropion HCl 300 mg 24 hr tablet, 300 mg PO DAILY 03/20/18 06/11/23 extended release (Wellbutrin XL) albuterol sulfate 90 mcg/actuation 2 puff IN Q4H PRN Shortness Of 10/24/18 06/11/23 aerosol inhaler (ProAir HFA) Breath Or Wheezing #0 grams loratadine 10 mg tablet 10 mg PO DAILY 12/16/18 06/11/23 albuterol sulfate 2.5 mg/3 mL 2.5 mg (3 mL) inhalation Q4H PRN 02/24/19 06/11/23 (0.083 %) solution for nebulization #0 mL ibuprofen 200 mg tablet 400 mg PO PRN PRN 02/24/19 06/11/23 acetylcysteine 600 mg capsule 1,200 mg PO BID 01/04/21 06/11/23 montelukast 10 mg tablet 10 mg PO DAILY 01/04/21 06/11/23 norgestimate 0.25 mg-ethinyl 1 tab PO DAILY 01/04/21 06/11/23 estradiol 35 mcg tablet (Mary) topiramate 25 mg tablet 25 - 50 mg PO BID 01/04/21 06/11/23 prednisone 20 mg tablet 40 mg (2 x 20 mg) PO DAILY URI 4 06/11/23 days #8 tabs Previous Rx's Medication Instructions Recorded albuterol sulfate 90 mcg/actuation 2 puff IN Q4H PRN Shortness Of 10/24/18 aerosol inhaler (ProAir HFA) Breath Or Wheezing #0 grams albuterol sulfate 2.5 mg/3 mL 2.5 mg (3 mL) inhalation Q4H PRN 02/24/19 (0.083 %) solution for nebulization #0 mL prednisone 20 mg tablet 40 mg (2 x 20 mg) PO DAILY URI 4 06/11/23 days #8 tabs Allergies Allergy/AdvReac Type Severity Reaction Status Date / Time animal dander Allergy Unverified 01/06/23 18:40 pollen extracts Allergy Unverified 01/06/23 18:40 General Stated Complaint: RespSymp KELSEY: 3 Review of Systems All systems reviewed & are unremarkable except as noted in HPI and below Exam Narrative Exam Narrative: GENERAL APPEARANCE: Well-nourished, non-toxic, awake and alert, atraumatic, no acute distress. SKIN: Warm, pink, dry, intact, without rashes/lesions/ulcerations. HEAD: Normocephalic, atraumatic, normal hair distribution for gender/age. EYES: Pupils PERRLA, EOMs intact without nystagmus, normal conjunctiva, no exudates on lids/lashes. ENT: Nares patent, no circumoral cyanosis, no facial swelling NECK: Supple, trachea midline, painless cervical ROM. LUNGS/CHEST: Lungs CTA bilaterally- no rhonchi/rales/wheezes diffusely, non- labored respirations, normal A/P diameter, symmetrical expansion, no chest wall deformity HEART (CV/PV): Regular rate and rhythm without murmur, no peripheral edema, no JVD. ABDOMEN: Soft, non-distended, no guarding, no tenderness. MSK: Normal ROM, no swelling/deformity to bilateral UEs or LEs, moving all extremities without weakness, no cyanosis, spine midline without tenderness, normal curvature. NEURO: Mental Status AAOx4 - alert to person, place, time, events No facial droop, no forehead involvement. Motor: No focal weakness - strength 5/5 in bilateral UEs and LEs, proximal and distal, symmetric. Sensory: sensation intact to light touch globally. Gait normal: patient ambulated without ataxia into ED room. PSYCH: euthymic, cooperative, pleasant, appropriate speech Course Vital Signs Vital signs: Vital Signs Temperature 36.1 C L 06/11/23 18:31 Pulse 96 H 06/11/23 18:31 Respiratory Rate 14 06/11/23 18:31 Blood Pressure 134/89 06/11/23 18:31 Pulse Oximetry 99 06/11/23 18:31 Temperature 36.1 C L 06/11/23 18:31 Temperature Source Temporal Artery Scan 06/11/23 18:31 Pulse 96 H 06/11/23 18:31 Respiratory Rate 14 06/11/23 18:31 Blood Pressure 134/89 06/11/23 18:31 Blood Pressure Position Sitting 06/11/23 18:31 Pulse Oximetry 99 06/11/23 18:31 Oxygen Delivery Method Room Air 06/11/23 18:31 Oxygen Flow Rate 0 06/11/23 18:31 Pain Level 7 06/11/23 18:31 Medical Decision Making This dictation utilizes [id number] dictation software and may contain unedited grammatical errors. 33 y/o F presents to ED today with a chief complaint of cough for one week, mild shortness of breath, denies abdominal pain, nausea/vomiting, is tolerating PO intake. Patients' medical history: asthma. 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 Pertinent exam findings / vital signs include lungs CTA, no respiratory distress. Differential / pathologies of concern include URI, PNA, not hypoxia. Diagnostic studies of: -Covid/Flu/RSV PCR, XR Chest. -RSV + -CXR without PNA Interventions of: -DuoNeb per patient request. 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 Strict return criteria for any failure to improve after 1 to 2 weeks, strict return for any severe increase in respiratory distress. Findings not consistent with hypoxic respiratory failure, pneumonia. Disposition of Respiratory Syncytial Virus. Patient verbalized understanding of the plan and return to ED criteria and engaged in shared decision making. Medical Records Medical records reviewed: Yes I reviewed the patient's medical records. Imaging Data Radiologic Study: Attestation: I personally reviewed and interpreted this imaging study as follows: Imaging: X-Ray Radiologist's impression: Exam: XR Chest Exam date and time: 06/11/2023 8:01 PM Age: 33 years old Clinical indication: Cough TECHNIQUE: Imaging protocol: Radiologic exam of the chest. Views: 2 views. COMPARISON: CR XR PORTABLE CHEST AP 12/04/2019 3:07 PM FINDINGS: Lungs: Unremarkable. No consolidation. Pleural spaces: Unremarkable. No pleural effusion. No pneumothorax. Heart/Mediastinum: Unremarkable. No cardiomegaly. Bones/joints: Unremarkable. IMPRESSION: No acute findings. Dictated and Authenticated by: Watson Saez MD. Ordering:ANA ROSA Patrick MD Lab Data Lab results reviewed: Yes I reviewed the patient's lab results. Labs: Laboratory Tests Range/Units 06/11/23 19:20 COVID-19 Source Nasopharynx SARS-CoV-2 (PCR) (Negative) Negative Influenza Type A (PCR) (Negative) Negative Influenza Type B (PCR) (Negative) Negative RSV (PCR) (Negative) Positive A* Quality:SDOH Health Related Social Needs: No Data to Display PFSH All Active Problems Respiratory syncytial virus (Acute) Headache (Acute) Asthma exacerbation (Acute) Viral URI with cough (Acute) No pertinent past surgical history (Chronic) Medical History (Updated 06/11/23 @ 20:15 by DOMITILA Vazquez) Depression Asthma Social History Smoking/Tobacco Use Status: Former Tobacco Use Quit Date: 02/05/19 Smoking risk assessment performed?: Yes Alcohol Intake: never Drug use: Never Substance use type: does not use Do you feel safe at home: Yes Do you feel safe in your relationship?: Yes
--- NOTE | 2023-06-11 18:45 | DI.RAD_ITS ---
Exam(s) XR CHEST 2V PA LATERAL EXAM: XR CHEST 2V PA LATERAL CLINICAL HISTORY: cough TECHNIQUE: 2D digital imaging was performed of the chest. Two images were obtained. PA and lateral views were obtained. COMPARISON: CR,XR XR CHEST 2V PA LATERAL from 02/24/2019 CR,XR XR PORTABLE CHEST AP from 12/04/2019 FINDINGS: MEDIASTINUM: Normal. HEART: Normal. PULMONARY VASCULATURE: Normal. LUNGS: Clear. PLEURAL SPACE: No pleural effusion or pneumothorax. BONE:Within normal limits for the patient's age. OTHER FINDINGS:Normal. IMPRESSION: No acute pulmonary findings. DATA REPOSITORY: RADIATION DOSE DELIVERED:
[2023-06-11 20:04] LABS: COVID-19 PCR Negative (Negative); Influenza A PCR Negative (Negative); Influenza B PCR Negative (Negative)
[2023-06-11 20:08] LABS: RSV PCR Positive (Negative); Source Nasopharynx
[2023-06-11] MEDS: Albuterol/Ipratropium 3 ML UPD VIAL UPD (20:20)
[2023-06-11 20:22] VITALS: RESP 16; O2SAT 98
--- NOTE | 2023-06-11 20:26 | DI.VRAD_ITS ---
PROCEDURE INFORMATION: Exam: XR Chest Exam date and time: 06/11/2023 8:01 PM Age: 33 years old Clinical indication: Cough TECHNIQUE: Imaging protocol: Radiologic exam of the chest. Views: 2 views. COMPARISON: CR XR PORTABLE CHEST AP 12/04/2019 3:07 PM FINDINGS: Lungs: Unremarkable. No consolidation. Pleural spaces: Unremarkable. No pleural effusion. No pneumothorax. Heart/Mediastinum: Unremarkable. No cardiomegaly. Bones/joints: Unremarkable. IMPRESSION: No acute findings. Dictated and Authenticated by: Watson Saez MD. Ordering:ANA ROSA Patrick MD
[2023-06-11 20:40] VITALS: BP 135/68; PULSE 80; RESP 16; TEMP 36.6; O2SAT 98
[2023-06-11] MEDS: predniSONE 20 MG TAB 40 MG PO (20:40)
== END 2023-06-11 20:34 | disposition home or self-care (01) ==
PROVIDERS: Emergency Provider Physician Assistant; PCP Nurse Practitioner Family
DX: J06.9 Acute upper respiratory infection, unspecified (principal); B97.4 Respiratory syncytial virus as the cause of diseases classified elsewhere; Z11.52 Encounter for screening for COVID-19; Z87.891 Personal history of nicotine dependence
CPT/HCPCS: 87637; 99283; 71046; J7512; J7620

== ENCOUNTER 2024-01-17 20:08 | Emergency (ER) | payer MEDICAID, SELFPAY ==
[2024-01-17 20:18] VITALS: BP 126/69; PULSE 89; RESP 20; TEMP 36.8; O2SAT 98
[2024-01-17 20:30] VITALS: BP 126/69; PULSE 89; RESP 20; TEMP 36.8; O2SAT 98
[2024-01-17] MEDS: Ketorolac 30 MG/ML VIAL 15 MG IVP (20:47)
[2024-01-17] MEDS: diphenhydrAMINE 50 MG/ML VIAL 25 MG IVP (20:48)
[2024-01-17] MEDS: Metoclopramide 10 MG/2 ML VIAL IVP (20:48)
--- NOTE | 2024-01-17 21:05 | ED.GENADUL_ITS ---
Discharge Plan Disposition Patient Disposition: Home Condition: Stable Discharge Details Clinical Impression: Migraine Primary Care Provider: Regina Pappas ED Provider: Zahida Killian Home Meds and New Rx's Prescriptions: No Action Pulmicort Flexhaler 120 PUFF/INH aerosol powdr breath activated 180 mcg IN BID bupropion HCl [Wellbutrin XL] 300 mg Tablet Extended Release 24 Hr 300 mg PO DAILY topiramate 25 mg tablet 25 - 50 mg PO BID Patient Comments: TAKE 1 TABLET BY MOUTH TWICE DAILY. MAY INCREASE TO 2 TABLETS BY MOUTH TWICE DAILY TOLERATED montelukast 10 mg tablet 10 mg PO DAILY Patient Comments: TAKE 1 TABLET BY MOUTH DAILY albuterol sulfate [ProAir HFA] 8.5 GM HFA aerosol inhaler 2 puff IN Q4H PRN (Reason: Shortness Of Breath Or Wheezing) Qty: 0 0RF loratadine 10 mg Tablet 10 mg PO DAILY ibuprofen 200 mg Tablet 400 mg PO PRN PRN albuterol sulfate 2.5 mg /3 mL (0.083 %) Solution For Nebulization 2.5 mg inhalation Q4H PRNQty: 0 0RF Discharge Instructions Instructions: Headache, Adult ED Additional Instructions: You were seen in the emergency department today for evaluation of headache. In our department he had a full physical examination performed and had medications which improved her headache. It is a for you to go home continue your home medications as prescribed. Please maintain good hydration and nutrition and follow-up with your primary care provider for reassessment. Thank you for allowing us to be part of your care HPI General Mode of arrival: ambulatory . Date/Time Provider Initiated Documentation: 01/17/24 20:11 . Limitations to Documentation: no limitations . Information obtained by: patient and old records reviewed . HPI Narrative: HPI: This is a 33-year-old female patient with a past medical history significant for asthma and migraine who is presenting for evaluation of headache. The patient reports that this headache started gradually over the last 4 days, has not responded to her typical migraine abortive medication. She states that she has been trialing Tylenol and ibuprofen without improvement in the home environment. States that the location of the pain is in a band across her forehead, which is typical of her prior migraines. She has sensitivity to sound and some nausea. She states that she has not had any trauma, did not have a thunderclap quality to her headache, and is not experiencing any vision changes or neurodeficits. Exam: Gen: Awake and alert, in no apparent distress HEENT: Non-icteric sclera, pupils equal and reactive bilaterally at 5 mm, EOMs are full Neck: Supple Lungs: No apparent respiratory distress, normal respiratory effort. Lung sounds clear and equal bilaterally CV: Appears well perfused, heart with regular rate and rhythm Abdomen: Non-distended MSK: Moves 4 extremities without apparent limitation in ROM Skin: Visualized skin without rashes, cyanosis. Neuro: Normal Gait, cranial nerves II through XII intact and symmetrical bilaterally, 5 out of 5 strength x 4 extremities with no sensory deficits. Psych: Appropriate for situation. MDM: This is a 33-year-old female patient presenting for evaluation of headache. My differential includes but is not limited to migraine headache, tension headache. Certainly considered more severe headache disorders such as subarachnoid hemorrhage, but there is no thunderclap quality to the headache and similarly the patient is without neurodeficits. Her lack of neurodeficits also increases my reassurance against CVA, dural venous sinus thrombosis, trauma, etc. The patient has no fever to suggest meningitis, no vision changes to sugg est temporal arteritis, glaucoma, optic neuritis. She is tolerating p.o. and have a low concern for dehydration, metabolic or electrolyte derangements. At this time is do not see any indication to proceed with advanced imaging studies or laboratory studies. We will however provide her with a migraine cocktail, to include Toradol, Reglan, Benadryl. I will also use oral fluids given the IV fluid shortage and her ability to tolerate fluid intake. ED Course: On reassessment, the patient reports that her headache is improved significantly, she remains neuro intact and hemodynamically stable and is desiring of discharge home. I did provide her with a Tylenol for ongoing symptom management and recommended continuing her home medications. At this time, the patient has had a full medical evaluation and is safe for discharge to home. They are hemodynamically stable, ambulatory, and tolerating PO. They are understanding of the follow-up plan and return precautions. They left our facility without incident. Zahida Killian MD Related Data Home Medications ?Medication ?Instructions ?Recorded ?Confirmed budesonide 180 mcg/actuation 180 mcg IN BID 08/23/17 01/17/24 breath activated powder inhaler (Pulmicort Flexhaler) bupropion HCl 300 mg 24 hr tablet, 300 mg PO DAILY 03/20/18 01/17/24 extended release (Wellbutrin XL) albuterol sulfate 90 mcg/actuation 2 puff IN Q4H PRN Shortness Of 10/24/18 01/17/24 aerosol inhaler (ProAir HFA) Breath Or Wheezing #0 grams loratadine 10 mg tablet 10 mg PO DAILY 12/16/18 01/17/24 albuterol sulfate 2.5 mg/3 mL 2.5 mg (3 mL) inhalation Q4H PRN 02/24/19 01/17/24 (0.083 %) solution for nebulization #0 mL ibuprofen 200 mg tablet 400 mg PO PRN PRN 02/24/19 01/17/24 montelukast 10 mg tablet 10 mg PO DAILY 01/04/21 01/17/24 topiramate 25 mg tablet 25 - 50 mg PO BID 01/04/21 01/17/24 Previous Rx's ?Medication ?Instructions ?Recorded albuterol sulfate 90 mcg/actuation 2 puff IN Q4H PRN Shortness Of 10/24/18 aerosol inhaler (ProAir HFA) Breath Or Wheezing #0 grams albuterol sulfate 2.5 mg/3 mL 2.5 mg (3 mL) inhalation Q4H PRN 02/24/19 (0.083 %) solution for nebulization #0 mL Allergies Allergy/AdvReac Type Severity Reaction Status Date / Time animal dander Allergy Unknown Verified 01/17/24 20:21 pollen extracts Allergy Unknown Verified 01/17/24 20:21 General Stated Complaint: Headache KELSEY: 4 Course Vital Signs Vital signs: Vital Signs Temperature 36.8 C 01/17/24 20:18 Pulse 89 01/17/24 20:18 Respiratory Rate 20 01/17/24 20:18 Blood Pressure 126/69 01/17/24 20:18 Pulse Oximetry 98 01/17/24 20:18 Temperature 36.8 C 01/17/24 20:30 Pulse 89 01/17/24 20:30 Respiratory Rate 20 01/17/24 20:30 Respiratory Effort Normal 01/17/24 20:20 Blood Pressure 126/69 01/17/24 20:30 Pulse Oximetry 98 01/17/24 20:30 Oxygen Delivery Method Room Air 01/17/24 20:30 Oxygen Flow Rate 0 01/17/24 20:30 Pain Level 9 01/17/24 20:30 Medical Decision Making Quality:SDOH Health Related Social Needs: No Data to Display PFSH All Active Problems Migraine (Chronic) Headache (Acute) Asthma exacerbation (Acute) Viral URI with cough (Acute) No pertinent past surgical history (Chronic) Medical History (Updated 01/17/24 @ 21:49 by Zahida Killian MD) Depression Asthma Social History Smoking/Tobacco Use Status: Former Tobacco Use Quit Date: 02/05/19 Smoking risk assessment performed?: Yes Alcohol Intake: never Drug use: Never Substance use type: does not use Housing: apartment Do you feel safe at home: Yes Do you feel safe in your relationship?: Yes
--- OUTSIDE RECORDS SUMMARY | 2024-01-17 21:43 | XMS_ITS | Encounter Summary ---
Author Organization [facility] Address [address] [place] [address] Care Team Providers Care Financial Planner Name Role Phone Unknown, Provider Primary Care Provider Unava ilable Encounter Details Date Type Department Care Team (Late st Contact Info) Description 12/12/2010 20:55 EDT - 12/12/2010 20:57 EDT Hospital Encounter [facility] [address] [place] [address] Deisy Cantu, [facility] [address] [address] Discharge Disposition: Home or Self Care Social History Tobacco Use Types Packs/Day Years Used Date Smoking Tobacco: Never Assessed Comments Unknown Sex and Gender Information Value Date Recorded Sex Assigned at Not on file Legal Sex Female 18:31 EST Gender Identity Not on file Sexual Orientation Not on file documented as of this encounter Discharge Disposition Disposition Code Departure Means Destination Home or Self Care documented in this encounter Plan of Treatment Not on file documented as of this encounter Visit Diagnoses Not on filedocumented in this encounter Care Teams Financial Planner Relationship Specialty Start Date End Date Unknown, Provider, PCP - General 10/02/10 documented as of this encounter
--- OUTSIDE RECORDS SUMMARY | 2024-01-17 21:43 | XMS_ITS | Encounter Summary ---
Author Organization [facility] Address [address] [place] [address] Care Team Providers Care Steel Loader Name Role Phone Unknown, Provider Primary Care Provider Unava ilable Encounter Details Date Type Department Care Team (Late st Contact Info) Description 12/10/2019 Lab Requisition [facility] Pathology & Laboratory Medicine - [address] [address] Outr Resulting Lab, Provider Social History Tobacco Use Types Packs/Day Years Used Date Smoking Tobacco: Never Assessed Interpersonal Safety Answer Date Record ed Physically Hurt Never 10/03/2019 Verbally Threaten Not on file 10/03/2019 Comments Unknown Sex and Gender Information Value Date Recorded Sex Assigned at Not on file Legal Sex Female 18:31 EST Gender Identity Not on file Sexual Orientation Not on file documented as of this encounter Plan of Treatment Not on file documented as of this encounter Procedures Procedure Name Priority Date/Time Associated Diagnosis Comments DO NOT ORDER STANDALONE - BROAD COVID TEST Today 12/10/2019 10:48 EDT COVID-19 TESTING Routine 12/10/2019 10:4 8 EDT documented in this encounter Results * DO NOT ORDER STANDALONE - BROAD COVID TEST (12/10/2019 10:48 EDT) COVID-19 rt-PCR Result NEGATIVE Negative 12/11/2019 17:27 EDT [facility] Comment: 2019-novel Coronavirus (2019-nCoV) not detected by the qRT-PCR assay. Consider testing for other respiratory viruses or re-collecting for 2019-nCoV testing. Note: Optimum timing for peak viral levels during infections caused by 2019-nCoV have not been determined. Collection of multiple specimens from the same patient may be necessary to detect the virus. Limitations Positive results are indicative of active infection with SARS-CoV-2 but do not rule out bacterial infection or co-infection with other viruses. The agent detected may not be the definite cause of disease. In addition, detection of viral RNA may not indicate the presence of infectious virus or that SARS-CoV-2 is the causative agent for clinical symptoms. Negative results do not preclude SARS-CoV-2 infection and should not be used as the sole basis for patient management decisions. Negative results must be combined with clinical observations, patient history, and epidemiological information. False negative results may also occur if amplification inhibitors are present in the specimen or if inadequate numbers of organisms are present in the specimen. Optimum specimen types and timing for peak viral levels during infections caused by SARS-CoV-2 have not been fully determined. Collection of multiple specimens (types and time points) from the same patient may be necessary to detect the virus. The test was validated for use with upper respiratory specimens obtained via nasopharyngeal or oropharyngeal swabs in VTM, UTM, M4, M5, M6, saline, and MTM media. The performance of this test has not been established for other specimens. Specimens collected using other FDA recommended Specimen Collection Materials listed in the FDA COVID-19 [employer] communication (May 27, 2019) are processed with the caveat that they were not all validated for use with this test and the result must be interpreted in this context. Furthermore, a false negative results may occur if a specimen is improperly collected, transported or handled. If the virus mutates in the RT-PCR target region, SARS-CoV-2 may not be detected or may be detected less predictably. Inhibitors or other types of interference may produce a false negative result. An interference study evaluating the effect of common cold medications was not performed. This test is not FDA-cleared but its performance characteristics were established by our CLIA-certified, CAP-accredited, high complexity laboratory in accordance with CLIA regulations, College of [place] [employer]ologists (CAP) guidelines (May 20, 2019), and FDA guidance (May 01, 2019). This test is only for use under the Food and Drug Administration's Emergency Use Authorization. Swab ENTIRE NASOPHARYNX / Unknown 12/10/2019 10:48 EDT 12/10/2019 15:59 EDT us Provider Outr Resulting Lab MICROBIOLOGY - GENER AL ORDERABLES Final Result [facility] [place], [place] * COVID-19 TESTING (12/10/2019 10:48 EDT) Pathologist [facility] COVID-19 rt-PCR Result NEGATIVE Negative 12/11/2019 20:19 EDT [facility] Comment: 2019-novel Coronavirus (2019-nCoV) not detected by the qRT-PCR assay. Consider testing for other respiratory viruses or re-collecting for 2019-nCoV testing. Note: Optimum timing for peak viral levels during infections caused by 2019-nCoV have not been determined. Collection of multiple specimens from the same patient may be necessary to detect the virus. Limitations Positive results are indicative of active infection with SARS-CoV-2 but do not rule out bacterial infection or co-infection with other viruses. The agent detected may not be the definite cause of disease. In addition, detection of viral RNA may not indicate the presence of infectious virus or that SARS-CoV-2 is the causative agent for clinical symptoms. Negative results do not preclude SARS-CoV-2 infection and should not be used as the sole basis for patient management decisions. Negative results must be combined with clinical observations, patient history, and epidemiological information. False negative results may also occur if amplification inhibitors are present in the specimen or if inadequate numbers of organisms are present in the specimen. Optimum specimen types and timing for peak viral levels during infections caused by SARS-CoV-2 have not been fully determined. Collection of multiple specimens (types and time points) from the same patient may be necessary to detect the virus. The test was validated for use with upper respiratory specimens obtained via nasopharyngeal or oropharyngeal swabs in VTM, UTM, M4, M5, M6, saline, and MTM media. The performance of this test has not been established for other specimens. Specimens collected using other FDA recommended Specimen Collection Materials listed in the FDA COVID-19 [employer] communication (May 27, 2019) are processed with the caveat that they were not all validated for use with this test and the result must be interpreted in this context. Furthermore, a false negative results may occur if a specimen is improperly collected, transported or handled. If the virus mutates in the RT-PCR target region, SARS-CoV-2 may not be detected or may be detected less predictably. Inhibitors or other types of interference may produce a false negative result. An interference study evaluating the effect of common cold medications was not performed. This test is not FDA-cleared but its performance characteristics were established by our CLIA-certified, CAP-accredited, high complexity laboratory in accordance with CLIA regulations, College of [place] [employer]ologists (CAP) guidelines (May 20, 2019), and FDA guidance (May 01, 2019). This test is only for use under the Food and Drug Administration's Emergency Use Authorization. Performing Lab [facility] 12/11/2019 20:19 EDT [facility] Swab 12/10/2019 10:4 8 EDT 12/10/2019 15:59 EDT us Provider Outr Resulting Lab MICROBIOLOGY - GENER AL ORDERABLES Final Result [facility] [address] [place] [address] [facility] [place], [place] documented in this encounter Visit Diagnoses Not on filedocumented in this encounter Care Teams Steel Loader Relationship Specialty Start Date End Date Unknown, Provider, PCP - General 10/02/10 documented as of this encounter
--- OUTSIDE RECORDS SUMMARY | 2024-01-17 21:43 | XMS_ITS | Encounter Summary ---
Author Organization [facility] Address [address] [place] [address] Care Team Providers Care Orchid Superintendent Name Role Phone Unknown, Provider Primary Care Provider Unava ilable Encounter Details Date Type Department Care Team (Late st Contact Info) Description 12/14/2019 Lab Requisition [facility] Pathology & Laboratory Medicine - [address] [address] Outr Resulting Lab, Provider Social History Tobacco [...] ORDER STANDALONE - [facility]OAD COVID TEST Today 12/14/2019 10:03 EDT COVID-19 TESTING Routine 12/14/2019 10:0 3 EDT documented in this encounter Results * DO NOT ORDER STANDALONE - BROAD COVID TEST (12/14/2019 10:03 EDT) COVID-19 rt-PCR Result NEGATIVE Negative 12/15/2019 17:45 EDT [facility] Comment: 2019-novel Coronavirus [...] in accordance with CLIA regulations, College of [place] [employer]ologists (CAP) guidelines (May 20, 2019), and FDA guidance (May 01, 2019). This test is only for use under the Food and Drug Administration's Emergency Use Authorization. Swab ENTIRE NASOPHARYNX / Unknown 12/14/2019 10:03 EDT 12/14/2019 16:52 EDT us Provider Outr Resulting Lab MICROBIOLOGY - GENER AL ORDERABLES Final Result [facility] [place], [place] * COVID-19 TESTING (12/14/2019 10:03 EDT) Pathologist [facility] COVID-19 rt-PCR Result NEGATIVE Negative 12/15/2019 20:36 EDT [facility] Comment: 2019-novel Coronavirus (2019-nCoV) not detected [...] in accordance with CLIA regulations, College of [place] [employer]ologists (CAP) guidelines (May 20, 2019), and FDA guidance (May 01, 2019). This test is only for use under the Food and Drug Administration's Emergency Use Authorization. Performing Lab [facility] [place] 12/15/2019 20:[address] [facility] Swab 12/14/2019 10:0 3 EDT 12/14/2019 16:52 EDT us Provider Outr Resulting Lab MICROBIOLOGY - GENER AL ORDERABLES Final Result [facility] [address] [place] [address] [facility] [place], [place] documented in this encounter Visit Diagnoses Not on filedocumented in this encounter Care Teams Orchid Superintendent Relationship Specialty Start Date End Date Unknown, Provider, PCP - General 10/02/10 documented as of this encounter
--- OUTSIDE RECORDS SUMMARY | 2024-01-17 21:43 | XMS_ITS | Encounter Summary ---
Author Organization [facility] Address [address] [place] [address] Care Team Providers Care Floral Arranger Name Role Phone Unavailable Primary Care Provider Unavailabl e Encounter Details Date Type Department Care Team (Late st Contact Info) Description 10/19/2005 Results Only [facility] [address] [place] [address] Unknown, Provider, Social History Tobacco Use Types Packs/Day Years [...] Procedure Name Priority Date/Time Associated Diagnosis Comments N. GONORRHOEAE AMPLIFIED PROBE Routine 10/19/2005 23:21 EDT ZZCHLAMYDIA TRACHOMATIS AMPLIFIED PROBE Routine 10/19/2005 23:21 EDT documented in this encounter Results * N. GONORRHOEAE AMPLIFIED PROBE (10/19/2005 23:21 EDT) Result No Neisseria gonorrhoeae DNA detected by early breastfeeding care specialist mediated amplification. [facility] Report Status Final [id number] [facility] Specimen Description Urine [facility] 10/19/2005 23:2 1 EDT 10/20/2005 15:14 EDT us Provider Unknown MICROBIOLOGY - GENERAL ORDER ANNA Final Result Performing Organization Address [facility]/ZIP Co de Phone Number [facility] [address] [place] [address] * CHLAMYDIA TRACHOMATIS AMPLIFIED PROBE (10/19/2005 23:21 EDT) Specimen Description Urine [facility] Result No Chlamydia trachomatis DNA detected by early breastfeeding care specialist mediated amplification. [facility] Report Status Final [id number] [facility] 10/19/2005 23:2 1 EDT 10/20/2005 15:14 EDT us Provider Unknown MICROBIOLOGY - GENERAL ORDER ANNA Final Result Performing Organization Address [facility] Co de Phone Number [facility] [address] [place] [address] documented in this encounter Visit Diagnoses Not on filedocumented in this encounter
--- OUTSIDE RECORDS SUMMARY | 2024-01-17 21:43 | XMS_ITS | Encounter Summary ---
Author Organization [facility] Address [address] [place] [address] Care Team Providers Care Assembler Handbags Name Role Phone Unknown, Provider Primary Care Provider Unava ilable Encounter Details Date Type Department Care Team (Late st Contact Info) Description 11/11/2012 Results Only [facility] Laboratory Services - [facility] [address] [place], [place] [address] Cristino Wharton, JAMISON [address] [facility] [place], [place] [address] Social History Tobacco Use Types Packs/Day Years [...] Procedure Name Priority Date/Time Associated Diagnosis Comments PAP TEST- RESULT ONLY Routine 11/11/2012 0:00 EDT documented in this encounter Results * PAP TEST- RESULT ONLY (11/11/2012 0:00 EDT) Pathology Report: CYTOPATHOLOGY REPORT Reports generated via electronic interface contain original data; however they are lacking the format of the original report. Caution should be taken when reading/interpreti ng unformatted reports. Name: ? ROYAL VARGAS ? Accession #: ? [id number] : ? 1990 (Age: 22) ??F ?Collect Date: ? 11/11/2012 Location: ? [facility] ? Receive Date: ? 11/16/2012 Provider: ?CRISTINO WHARTON CNM Copy to: ? Specimen/Source: ?Pap Test, Cervix/Endocervix, ThinPrep Imaging System with manual evaluation Last Menstrual Period: ? 06/20/12 Previous Gynecologic Pathology: ? ASC-US: 10/02/10 HPV: + Other: ? Additional clinical information: 07/09/11 WNL ? SPECIMEN ADEQUACY ? Satisfactory for Evaluation - transformation zone component present GENERAL CATEGORIZATION ? Negative for Intraepithelial Lesion or Malignancy INTERPRETATION ? Reactive cellular changes associated with inflammation present (includes repair). ? Document reviewed and electronically signed by: ? LUKE JONAS MD ? Report Date: ??11/19/2012 18:48 End of Report [facility] 11/11/2012 11/16/2012 us Cristino Wharton CNM PATHOLOGY ORDERABLES Final Re sult [facility] [address] [place] [address] documented in this encounter Visit Diagnoses Not on filedocumented in this encounter Care Teams Assembler Handbags Relationship Specialty Start Date End Date Unknown, Provider, PCP - General 10/02/10 documented as of this encounter
--- OUTSIDE RECORDS SUMMARY | 2024-01-17 21:43 | XMS_ITS | Encounter Summary ---
Author Organization [facility] Address [address] [place] [address] Care Team Providers Care Lunchroom Supervisor Name Role Phone Unknown, Provider Primary Care Provider Unava ilable Encounter Details Date Type Department Care Team (Late st Contact Info) Description 10/02/2010 Results Only [facility] Laboratory Services - [facility] ([facility]) [address], [place] [id number] Cristino Silver, JAMISON [address] [facility] [place] [address] Social History Tobacco Use Types Packs/Day Years [...] Diagnosis Comments PAP TEST- RESULT ONLY Routine 10/02/2010 0:00 EDT documented in this encounter Results * PAP TEST- RESULT ONLY (10/02/2010 0:00 EDT) Pathology Report: CYTOPATHOLOGY REPORT ? Reports generated via electronic interface contain original data; ? however they are lacking the format of the original report. ? Caution should be taken when reading/interpreti ng unformatted reports. ? Name: ? ROYAL VARGAS ? Accession #: ? [id number] ? : ? 1990 (Age: 20) ??F ?Collect Date: ? 10/02/2010 ? Location: ? [facility] ? Receive Date: ? 10/03/2010 ? Provider: CRISTINO DIO CNM ? Copy to: ? Final Report ? SPECIMEN ADEQUACY ? Satisfactory for Evaluation ? - transformation zone component present ? GENERAL CATEGORIZATION ? Epithelial Cell Abnormality ? INTERPRETATION ? Squamous Cell Abnormality - Atypical squamous cells, undetermined ? significance (ASC-US). ? EDUCATIONAL NOTES/RECOMMENDATI ONS ? [facility] recommends following the 2006 Consensus Guidelines for the Management of Women with Abnormal Cervical Cancer Screening Tests (JLGTD, ? 2007;11(4):201-222 ). ??Consensus guidelines are available online at ? www.ASCCP.org. ? Last Menstural Period: 5/20/11 ? Menstural/Pregnanc y Status: ? Other: Additional clinical information: last pap smear [address] [facility] ? Specimen/Source: ??Pap Test, Cervix/Endocervix, ThinPrep Imaging System with ? manual evaluation ? Document reviewed and electronically signed by: ? ABDALEJANDRO CARABALLO MD ? Report ??Date: 10/09/2010 17:52 ? HPV with Pap Test ? Date Ordered: ? 10/09/2010 ? Status: ?? Signed Out ?Date Complete: ? 10/18/2010 ? By: ??System Interface ? Date Reported: ? 10/18/2010 ? Interpretation ? RESULT: Positive for one or more of HPV types 16,18,31,33,35,39, 45, ? 51,52,56,58,59, or 68. These high/intermediate risk HPV ? types are associated with dysplasia and some cervical ? cancers. ? NHPV2 ? Comments ? Document reviewed and electronically signed by: ? System Interface ? Report date: 10/18/2010 ? By the signature above, the attending physician certifies that he/she has ? personally conducted a gross and/or microscopic examination of the described ? specimens and rendered or confirmed the above diagnosis. ? End of Report ? [facility] 10/02/2010 10/03/2010 Cristino Silver CNNeha PATHOLOGY ORDERABLES Final Re sult [facility] [address] [place] [address] documented in this encounter Visit Diagnoses Not on filedocumented in this encounter Care Teams Lunchroom Supervisor Relationship Specialty Start Date End Date Unknown, Provider, PCP - General 10/02/10 documented as of this encounter
--- OUTSIDE RECORDS SUMMARY | 2024-01-17 21:43 | XMS_ITS | Encounter Summary ---
Author Organization [facility] Address [address] [place] [address] Care Team Providers Care Hub Cutter Apprentice Name Role Phone Unknown, Provider Primary Care Provider Unava ilable Encounter Details Date Type Department Care Team (Late st Contact Info) Description 02/09/2020 Lab Requisition [facility] Pathology & Laboratory Medicine - [address] [address] Outr Resulting Lab, Provider Social History Tobacco [...] ORDER STANDALONE - BROAD COVID TEST Today 02/08/2020 14:45 EST COVID-19 TESTING Routine 02/08/2020 14:4 5 EST documented in this encounter Results * DO NOT ORDER STANDALONE - [facility] COVID TEST (02/08/2020 14:45 EST) COVID-19 rt-PCR Result NEGATIVE Negative 02/11/2020 13:18 EST [facility] Comment: 2019-novel Coronavirus (2019-nCoV) [...] in accordance with CLIA regulations, College of [place] [employer]ologists (CAP) guidelines (May 20, 2019), and FDA guidance (May 01, 2019). This test is only for use under the Food and Drug Administration's Emergency Use Authorization. Swab ENTIRE NASOPHARYNX / Unknown 02/08/2020 14:45 EST 02/09/2020 16:13 EST us Provider Outr Resulting Lab MICROBIOLOGY - GENER AL ORDERABLES Final Result [facility] [place], [place] * COVID-19 TESTING (02/08/2020 14:45 EST) COVID-19 rt-PCR Result NEGATIVE Negative 02/11/2020 15:51 EST [facility] Comment: 2019-novel Coronavirus (2019-nCoV) not detected [...] in accordance with CLIA regulations, College of [place] [employer]ologists (CAP) guidelines (May 20, 2019), and FDA guidance (May 01, 2019). This test is only for use under the Food and Drug Administration's Emergency Use Authorization. Performing Lab [facility] 02/11/2020 15:51 EST [facility] Swab 02/08/2020 14:4 5 EST 02/09/2020 16:13 EST us Provider Outr Resulting Lab MICROBIOLOGY - GENER AL ORDERABLES Final Result [facility] [address] [place] [address] [facility] [place], [place] documented in this encounter Visit Diagnoses Not on filedocumented in this encounter Care Teams Hub Cutter Apprentice Relationship Specialty Start Date End Date Unknown, Provider, PCP - General 10/02/10 documented as of this encounter
--- OUTSIDE RECORDS SUMMARY | 2024-01-17 21:43 | XMS_ITS | Encounter Summary ---
Author Organization [facility] Address [address] [place] [address] Care Team Providers Care Vice President Safety Name Role Phone Unknown, Provider Primary Care Provider Unava ilable Encounter Details Date Type Department Care Team (Late st Contact Info) Description 08/11/2013 Results Only [facility] Laboratory Services - [facility] ([facility]) [address] [place], [place] [address] Cristino Wharton, JAMISON [address] [facility] [place], [place] [address] Social History Tobacco Use Types Packs/Day Years [...] Diagnosis Comments PAP TEST- RESULT ONLY Routine 08/11/2013 0:00 EDT documented in this encounter Results * PAP TEST- RESULT ONLY (08/11/2013 0:00 EDT) Pathology Report: CYTOPATHOLOGY REPORT Reports generated via electronic interface contain original data; however they are lacking the format of the original report. Caution should be taken when reading/interpreti ng unformatted reports. Name: ? ROYAL VARGAS ? Accession #: ? [id number] : ? 1990 (Age: 23) ??F ?Collect Date: ? 08/11/2013 Location: ? [facility] ? Receive Date: ? 08/13/2013 Provider: ?CRISTINO WHARTON CNM Copy to: ? Specimen/Source: ?Pap Test, Cervix/Endocervix, ThinPrep Imaging System with manual evaluation Last Menstrual Period: ? 06/2012 Menstrual/Pregnanc y Status: ? Post ? SPECIMEN ADEQUACY ? Satisfactory for Evaluation - transformation zone component present GENERAL CATEGORIZATION ? Negative for Intraepithelial Lesion or Malignancy INTERPRETATION ? Reactive cellular changes associated with inflammation present (includes repair). ? Document reviewed and electronically signed by: ? LUKE JONAS MD ? Report Date: ??08/22/2013 11:30 End of Report [facility] 08/11/2013 08/13/2013 us Cristino Wharton CNM PATHOLOGY ORDERABLES Final Re sult [facility] [address] [place] [address] documented in this encounter Visit Diagnoses Not on filedocumented in this encounter Care Teams Vice President Safety Relationship Specialty Start Date End Date Unknown, Provider, PCP - General 10/02/10 documented as of this encounter
--- OUTSIDE RECORDS SUMMARY | 2024-01-17 21:43 | XMS_ITS ---
Author Organization Unknown Address [address] [place] [address] [phone] Phone Care Team Providers Care Vegetable Harvest Worker Name Role Phone NATI Cam Attending Unavailable Results MR BRAIN WO CONTRAST - Compl eted: 10/29/2021 11:02 LOINC: MRI SCAN OF THE BRAIN W/O IV CONTRAST: Multisequence MRI scan of the brain was performed. There are no prior brain imaging studies for comparison. There is no evidence of intracranial hemorrhage, mass effect, nor shift of midline structures. There are no extraaxial fluid collections. Ventricles are not enlarged nor shifted. There is no significant signal abnormality in the cerebellar hemispheres nor within the montse, midbrain, and thalami. There is also no significant periventricular signal abnormality. Corpus callosum appears unremarkable. No evidence of cerebellar tonsillar ectopia. Pituitary gland is not enlarged. Cavernous sinuses appear unremarkable. No masses in the cerebellar pontine angles. Orbits: Unremarkable. Vascular flow voids: Flow voids are present. No obvious vascular malformation nor aneurysm. DWI: No areas of restricted diffusion to suggest acute ischemic infarct. Paranasal sinuses: There is prominent circumferential mucosal thickening in the sphenoid sinuses. Mild minimal fluid. The visualized maxillary sinuses are clear with the exception of minimal mucosal thickening. Same for the frontal sinuses. There is some fluid in the ethmoidal air cells. Mastoid air cells appear unremarkable. IMPRESSION: 1. Sinus findings as described above, most prominent in the sphenoid sinuses. There is no dehiscence of the overlying floor of the sella turcica nor of the basiocciput-clivus. 2. No significant intracranial findings. No restricted diffusion. Dictated by: SOPHIA BRUNNER MD Transcribed by: ESTHER 10/31/2108:01 D Friday, October 29, 2021 10:45:11 AM [id number] Electronically Reviewed and Signed By: CINDY BRUNNER MD 10/31/21 21:58 Copy for: NATI Cam via fax Copy for: 185 HEALTH INFORMATION MGMT Social History Type Status Start Date End Date Code Code Syst em Smoking History Current every day smoker [id number] Sex Female Hospital Discharge Instructions Should you have any questions prior to discharge, please contact a member of your healthcare team. If you have left the hospital and have any questions, please contact your primary care physician. Reason For Referral No Data Found Problems Problem Start Date Resolved Date Status Code Code System No Active Problems active S NOMED-CT Allergies and Adverse Reactions Allergy Substance Reaction Severity Start Date Concern Status Co de Code System CAT HAIR EXTRACT Moderate Active 901412 RxNorm Plan of Treatment MRI BRAIN W/O CONTRAST 10/29/2021 Encounters Encounter Diagnosis Start Date Code Code Sys tem Migraine without aura, not i ntractable, without status migrainosus 10/29/2021 SNOMED-CT Personal Care Team Section Performer Name Performer Role Active Date Inactive Da maryanne
--- OUTSIDE RECORDS SUMMARY | 2024-01-17 21:43 | XMS_ITS | Encounter Summary ---
Author Organization [facility] Address [address] [place] [address] Care Team Providers Care Manager Employment Name Role Phone Unknown, Provider Primary Care Provider Unava ilable Encounter Details Date Type Department Care Team (Late st Contact Info) Description 07/09/2011 Results Only [facility] Laboratory Services - [facility] ([facility]) [address] [place], [place] [phone] Millie Olivera, JAMISON [address] [facility] [address] [place], [place] [phone] Social History Tobacco Use Types Packs/Day Years [...] Diagnosis Comments PAP TEST- RESULT ONLY Routine 07/09/2011 0:00 EDT documented in this encounter Results * PAP TEST- RESULT ONLY (07/09/2011 0:00 EDT) Pathology Report: CYTOPATHOLOGY REPORT Reports generated via electronic interface contain original data; however they are lacking the format of the original report. Caution should be taken when reading/interpreti ng unformatted reports. Name: ? ROYAL VARGAS ? Accession #: ? [id number] : ? 1990 (Age: 21) ??F ?Collect Date: ? 07/09/2011 Location: ? [facility] ? Receive Date: ? 07/11/2011 Provider: ?MILLIE SWIFTM Copy to: ? Specimen/Source: ?Pap Test, Cervix/Endocervix, ThinPrep Imaging System with manual evaluation Last Menstrual Period: ? 06/17/11 Menstrual/Pregnanc y Status: ? Post ? SPECIMEN ADEQUACY ? Satisfactory for Evaluation - transformation zone component present GENERAL CATEGORIZATION ? Negative for Intraepithelial Lesion or Malignancy INTERPRETATION ? Reactive cellular changes associated with inflammation present (includes repair). ? Document reviewed and electronically signed by: ? DMITRIY LOGAN MD ? Report Date: ??07/17/2011 13:31 End of Report [facility] 07/09/2011 07/11/2011 us Millie Olivera CNNeha PATHOLOGY ORDERABLES Final R esult [facility] [address] [place] [address] documented in this encounter Visit Diagnoses Not on filedocumented in this encounter Care Teams Manager Employment Relationship Specialty Start Date End Date Unknown, Provider, PCP - General 10/02/10 documented as of this encounter
--- OUTSIDE RECORDS SUMMARY | 2024-01-17 21:43 | XMS_ITS | Encounter Summary ---
Author Organization [facility] Address [address] [place] [address] Care Team Providers Care Sprayer Operator Name Role Phone Unknown, Provider Primary Care Provider Unava ilable Encounter Details Date Type Department Care Team (Late st Contact Info) Description 07/14/2020 Lab Requisition [facility] Pathology & Laboratory Medicine - [address] [address] Outr Resulting Lab, Provider Social History Tobacco [...] Procedure Name Priority Date/Time Associated Diagnosis Comments ZZCOVID-19 TEST [facility] PCR Today 07/13/2020 14:30 EDT COVID-19 TESTING Routine 07/13/2020 14:3 0 EDT documented in this encounter Results * COVID-19 TEST [facility] PCR (07/13/2020 14:30 EDT) Swab ENTIRE NASOPHARYNX / Unknown 07/13/2020 14:30 EDT 07/14/2020 15:43 EDT us Provider Outr Resulting Lab MICROBIOLOGY - GENER AL ORDERABLES Final Result [facility] [address] [place] [address] * COVID-19 TESTING (07/13/2020 14:30 EDT) COVID-19 rt-PCR Result Negative Negative 07/15/2020 14:10 EDT [facility] Comment: This test has not been FDA cleared or approved. This test has been authorized by FDA under an EUA for use by authorized laboratories. This test has been authorized only for detection of nucleic acid from 2019-nCoV, not for any other viruses or pathogens. This test is only authorized for the duration of the declaration that circumstances exist justifying the authorization of emergency use of in vitro diagnostic tests for detection and/or diagnosis of 2019-nCoV under section 564(b)(1) of Act, 21 U.S.C ?? 360bbb-3(b) (1), unless the authorization is terminated or revoked sooner. Negative results do not preclude 2019-nCoV infection and should not be used as the sole basis for treatment or other patient management decisions. Negative results must be combined with clinical observations, patient history, and epidemiological information. This test was developed and its performance characteristics determined by [facility]. It has not been cleared or approved by the US Food and Drug Administration. FDA does not require this test to go through premarket FDA review. This test is used for clinical purposes. It should not be regarded as investigational or for research. This laboratory is certified under the Clinical Laboratory Improvement Amendments (CLIA) as qualified to perform high complexity clinical laboratory testing. This test is based on the [facility] COVID-19 Emergency Use Authorization (EUA) assay, with minor modification as defined by the FDA Performed on the [employer] 7 Pro RT-PCR System. Performing Lab [facility] 07/15/2020 14:10 EDT [facility] Swab 07/13/2020 14:3 0 EDT 07/14/2020 15:43 EDT us Provider Outr Resulting Lab MICROBIOLOGY - GENER AL ORDERABLES Final Result [facility] [address] [place] [address] documented in this encounter Visit Diagnoses Not on filedocumented in this encounter Care Teams Sprayer Operator Relationship Specialty Start Date End Date Unknown, Provider, PCP - General 10/02/10 documented as of this encounter
--- OUTSIDE RECORDS SUMMARY | 2024-01-17 21:43 | XMS_ITS | Clinical Summary ---
Author Organization [facility] Address [address] [place] [address] Care Team Providers Care Stereo Compiler Name Role Phone Unknown, Provider Primary Care Provider Unava ilable Social History Tobacco Use Types Packs/Day Years Used Date Smoking Tobacco: Never Assessed Interpersonal Safety Answer Date Record ed Physically Hurt Never 10/03/2019 Verbally Threaten Not on file 10/03/2019 Comments Unknown Sex and Gender Information Value Date Recorded Sex Assigned at Not on file Legal Sex Female 18:31 EST Gender Identity Not on file Sexual Orientation Not on file Plan of Treatment Health Maintenance Due Date Last Done Comments Hepatitis C Screen 1990 Hepatitis B Vaccine (1 of 3 - 19+ 3-dose series) 02/05 COVID-19 Vaccine (2023- season) 2023 Insurance MEDICAID ACO [place] Care Teams Stereo Compiler Relationship Specialty Start Date End Date Unknown, Provider, PCP - General 8/2/11
--- OUTSIDE RECORDS SUMMARY | 2024-01-17 21:43 | XMS_ITS | Encounter Summary ---
Author Organization [facility] Address [address] [place] [address] Care Team Providers Care Supervisor Litharge Name Role Phone Unavailable Primary Care Provider Unavailabl e Encounter Details Date Type Department Care Team (Late st Contact Info) Description 03/30/2007 Results Only [facility] - [facility] conversion [address] [place] [address] Unknown, Provider, Social History Tobacco Use Types [...] Procedure Name Priority Date/Time Associated Diagnosis Comments HSV (ONLY) CULTURE Routine 03/30/2007 11 :29 EST documented in this encounter Results * HSV (ONLY) CULTURE (03/30/2007 11:29 EST) Specimen Description Ear [facility] Result HERPES SIMPLEX VIRUS TYPE I RECOVERED [facility] Report Status Final [id number] [facility] 03/30/2007 11:2 9 EST 03/30/2007 21:09 EST us Provider Unknown MICROBIOLOGY - GENERAL ORDER ANNA Final Result [facility] [address] [place] [address] documented in this encounter Visit Diagnoses Not on filedocumented in this encounter
--- OUTSIDE RECORDS SUMMARY | 2024-01-17 21:43 | XMS_ITS | Encounter Summary ---
Author Organization [facility] Address [address] [place] [address] Care Team Providers Care Adult Probation Officer Name Role Phone Unavailable Primary Care Provider Unavailabl e Encounter Details Date Type Department Care Team (Late st Contact Info) Description 11/20/2007 Before PRISM Converted Visit (Maple) [facility] - Maple conversion [address] [place] [address] Ulises Rm MD [address] [place] [id number] Social History Tobacco Use Types Packs/Day Years [...] Procedure Name Priority Date/Time Associated Diagnosis Comments HPV DETECTION, HIGH RISK TYPES Routine 11/20/2007 14:09 EDT CYTOPATHOLOGY Routine 11/20/2007 0:00 EDT documented in this encounter Results * HUMAN PAPILLOMA VIRUS DNA TEST (11/20/2007 14:09 EDT) Specimen Description Cervix, ThinPrep vial [facility] Result Negative for HPV types 16, 18, 31, 33, 35, 39, 45, 51, 52, 56, 58, 59, and 68. [facility] Report Status Final 12/03/2007 [facility] 11/20/2007 14:0 9 EDT 11/30/2007 14:09 EDT us Ulises Rm MD MICROBIOLOGY - GENERAL ORD ERABLES Final Result [facility] [address] [place] [address] * CYTOPATHOLOGY (11/20/2007 0:00 EDT) Pathology Report: CYTOPATHOLOGY REPORT ? Reports generated via electronic interface contain original data; ? however they are lacking the format of the original report. ? Caution should be taken when reading/interpreti ng unformatted reports. ? Name: ? ROYAL NESBITT ? Accession #: ? [id number] ? : ? 1990 (Age: 17) ??F ?Collect Date: ? 11/20/2007 ? Location: ? [facility] ? Receive Date: ? 11/24/2007 ? Provider: ?ULISES TANIA MD ? Copy to: ? Specimen/Source: ?ThinPrep Pap Test, Cervix/Endocervix, processed on [employer] ThinPrep Imaging System, with manual evaluation ? Last Menstrual Period: ? Menstrual/Pregnanc y Status: ? Other: ? Additional clinical information: early sexual activity ? HPVDX - HPV testing requested regardless of diagnosis on current ThinPrep Pap ?? test. ? SPECIMEN ADEQUACY ? Satisfactory for Evaluation ? - transformation zone component present ? GENERAL CATEGORIZATION ? Negative for Intraepithelial Lesion or Malignancy ? INTERPRETATION ? Reactive cellular changes associated with inflammation present (includes ?? repair). ? Document reviewed and electronically signed by: ? Aubrey D. Plotz, MD ? Report Date: ??11/30/2007 10:05 ? End of Report ? [facility] 11/20/2007 11/24/2007 us Ulises Rm MD PATHOLOGY ORDERABLES Final Result [facility] [address] [place] [address] documented in this encounter Visit Diagnoses Not on filedocumented in this encounter
--- OUTSIDE RECORDS SUMMARY | 2024-01-17 21:43 | XMS_ITS | Referral Summary ---
Author Organization [facility] Address [address] [place] [address] Care Team Providers Care Clinical Research Technician Name Role Phone Unknown, Provider Primary Care [...] Orientation Not on file Plan of Treatment Not on file Insurance MEDICAID ACO [place] Care Teams Clinical Research Technician Relationship Specialty Start Date End Date Unknown, Provider, PCP - General 10/02/10
--- OUTSIDE RECORDS SUMMARY | 2024-01-17 21:43 | XMS_ITS | Encounter Summary ---
Author Organization [facility] Address [address] [place] [address] Care Team Providers Care Silverware Cleaner Name Role Phone Unknown, Provider Primary Care Provider Unava ilable Encounter Details Date Type Department Care Team (Late st Contact Info) Description 01/24/2021 Lab Requisition [facility] Pathology & Laboratory Medicine - [address] [address] Outr Resulting Lab, Provider Social History Tobacco [...] Comments ZZCOVID-19 TEST [facility] PCR Today 01/23/2021 11:00 EST COVID-19 TESTING Routine 01/23/2021 11:0 0 EST documented in this encounter Results * COVID-19 TEST [facility] PCR (01/23/2021 11:00 EST) Swab 01/23/2021 11:0 0 EST 01/24/2021 16:45 EST us Provider Outr Resulting Lab MICROBIOLOGY - GENER AL ORDERABLES Final Result Performing Organization Address [facility] de Phone Number [facility] [address] [place] [address] * COVID-19 TESTING (01/23/2021 11:00 EST) COVID-19 rt-PCR Result Negative Negative 01/24/2021 21:[address] [facility] Comment: This test has [...] clinical observations, patient history, and epidemiological information. Performed on the [employer] Fusion instrument Performing Lab [place] [facility] 01/24/2021 21:[address] [facility] Swab 01/23/2021 11:0 0 EST 01/24/2021 16:45 EST us Provider Outr Resulting Lab MICROBIOLOGY - GENER AL ORDERABLES Final Result Performing Organization Address [facility] Co de Phone Number [facility] [address] [place] [address] documented in this encounter Visit Diagnoses Not on filedocumented in this encounter Care Teams Silverware Cleaner Relationship Specialty Start Date End Date Unknown, Provider, PCP - General 10/02/10 documented as of this encounter
[2024-01-17] MEDS: Acetaminophen 500 MG TAB 1000 MG PO (22:00)
[2024-01-17 22:01] VITALS: BP 126/82; PULSE 75; RESP 20; TEMP 36.8; O2SAT 98
== END 2024-01-17 22:01 | disposition home or self-care (01) ==
PROVIDERS: Emergency Provider Emergency Medicine; PCP Nurse Practitioner Family
DX: G43.909 Migraine, unspecified, not intractable, without status migrainosus (principal); Z87.09 Personal history of other diseases of the respiratory system; Z87.891 Personal history of nicotine dependence
CPT/HCPCS: 96374; 96375; 99284; 99283; J1200; J1885; J2765

== ENCOUNTER 2024-02-24 13:45 | Outpatient (CLI) | payer MEDICAID, SELFPAY ==
--- NOTE | 2024-02-24 13:25 | DI.RAD_ITS ---
Exam(s) XR CHEST 2V PA LATERAL EXAM: XR CHEST 2V PA LATERAL CLINICAL HISTORY: J20.9 Acute bronchitis TECHNIQUE: 2D digital imaging was performed. Two views. COMPARISON: No exams were available for comparison FINDINGS: HEART: Normal size. Aorta: Not dilated. PULMONARY VASCULATURE: Normal. MEDIASTINUM: Unremarkable. LUNGS: Clear. PLEURAL SPACE: No pleural effusion or pneumothorax. BONE:Unremarkable for age. SOFT TISSUES: Unremarkable. IMPRESSION: No acute abnormality. DATA REPOSITORY: RADIATION DOSE DELIVERED:
--- OUTSIDE RECORDS SUMMARY | 2024-02-24 13:47 | XMS_ITS | Encounter Summary ---
Author Organization [facility] Address [address] [place] [address] Care Team Providers Care Polisher Hand Name Role Phone Unknown, Provider Primary Care Provider Unava ilable Encounter Details Date Type Department Care Team (Late st Contact Info) Description 01/24/2021 Lab Requisition [facility] Pathology & Laboratory Medicine - [address] [address] Outr Resulting Lab, Provider Social History Tobacco [...] AL ORDERABLES Final Result Performing Organization Address [facility] de Phone Number [facility] [address] [place] [address] * COVID-19 TESTING (01/23/2021 11:00 EST) COVID-19 rt-PCR Result Negative Negative 01/24/2021 21:44 EST [facility] Comment: This test has [...] history, and epidemiological information. Performed on the [employer] Fusion instrument Performing Lab [place] [facility] 01/24/2021 21:44 EST [facility] Swab 01/23/2021 11:0 0 EST 01/24/2021 16:45 EST us Provider Outr Resulting Lab MICROBIOLOGY - GENER AL ORDERABLES Final Result Performing Organization Address [facility] Co de Phone Number [facility] [address] [place] [address] documented in this encounter Visit Diagnoses Not on filedocumented in this encounter Care Teams Polisher Hand Relationship Specialty Start Date End Date Unknown, Provider, PCP - General 10/02/10 documented as of this encounter
--- OUTSIDE RECORDS SUMMARY | 2024-02-24 13:47 | XMS_ITS | Referral Summary ---
Author Organization [facility] Address [address] [place] [address] Care Team Providers Care Major Gifts Officer Name Role Phone Unknown, Provider Primary Care [...] file Insurance MEDICAID ACO [place] Care Teams Major Gifts Officer Relationship Specialty Start Date End Date Unknown, Provider, PCP - General 10/02/10
--- OUTSIDE RECORDS SUMMARY | 2024-02-24 13:47 | XMS_ITS | Clinical Summary ---
Author Organization [facility] Address [address] [place] [address] Care Team Providers Care Shake Loader Name Role Phone Unknown, Provider Primary [...] 2023 Insurance MEDICAID [place] Care Teams Shake Loader Relationship Specialty Start Date End Date Unknown, Provider, PCP - General 8/2/11
--- OUTSIDE RECORDS SUMMARY | 2024-02-24 13:47 | XMS_ITS ---
Author Organization Unknown Address [address] [place] [phone] Phone Care Team Providers Care Bus And Sys Integration Senior Manager Name Role Phone NATI Cam Attending Unavailable [...] D Friday, October 29, 2021 10:45:11 AM [phone] Electronically Reviewed and Signed By: CINDY BRUNNER MD 10/31/21 21:58 Copy for: NATI Cam via fax Copy for: 185 HEALTH INFORMATION MGMT Social History Type Status Start Date End Date Code Code Syst em Smoking History Current every day smoker [id number] Sex Female Hospital Discharge Instructions [...] Co de Code System CAT HAIR EXTRACT ITCHY EYES (SNOMED-CT: null) Moderate Active 174261 RxNorm Plan of Treatment MRI BRAIN W/O CONTRAST 10/29/2021 Encounters Encounter Diagnosis Start Date Code Code Sys tem Migraine without aura, not i ntractable, without status migrainosus 10/29/2021 SNOMED-CT Personal Care Team Section Performer Name Performer Role Active Date Inactive Da te
--- OUTSIDE RECORDS SUMMARY | 2024-02-24 13:48 | XMS_ITS | Encounter Summary ---
Author Organization [facility] Address [address] [place] [address] Care Team Providers Care Financial Sales Manager Name Role Phone Unknown, Provider Primary Care Provider Unava ilable Encounter Details Date Type Department Care Team (Late st Contact Info) Description 07/09/2011 Results Only [facility] Laboratory Services - [facility] ([facility]) [address] [place], [place] [phone] Millie Olivera, JAMISON [address] [facility] [address] [place], [place] [phone] Social History Tobacco Use Types Packs/Day Years [...] ? ROYAL VARGAS ? Accession #: ? [id number] : ? 1990 (Age: 21) ??F ?Collect [...] Final R esult [facility] [address] [place] [address] documented in this encounter Visit Diagnoses Not on filedocumented in this encounter Care Teams Financial Sales Manager Relationship Specialty Start Date End Date Unknown, Provider, PCP - General 10/02/10 documented as of this encounter
--- OUTSIDE RECORDS SUMMARY | 2024-02-24 13:48 | XMS_ITS | Encounter Summary ---
Author Organization [facility] Address [address] [place] [address] Care Team Providers Care Veneer Clipper Helper Name Role Phone Unknown, Provider Primary Care Provider Unava ilable Encounter Details Date Type Department Care Team (Late st Contact Info) Description 12/10/2019 Lab Requisition [facility] Pathology & Laboratory Medicine - [address] [address] Outr Resulting Lab, Provider Social History Tobacco [...] in accordance with CLIA regulations, College of [employer] (CAP) guidelines (May 20, 2019), and FDA guidance (May 01, 2019). This test is only for use under the Food and Drug Administration's Emergency Use Authorization. Swab ENTIRE NASOPHARYNX / Unknown 12/10/2019 10:48 EDT 12/10/2019 15:59 EDT us Provider Outr Resulting Lab MICROBIOLOGY - GENER AL ORDERABLES Final Result [facility] [place] * COVID-19 TESTING (12/10/2019 10:48 EDT) Pathologist [facility] COVID-19 rt-PCR Result NEGATIVE Negative 12/11/2019 20:19 EDT [facility] Comment: 2019-novel Coronavirus (2019-nCoV) not detected [...] in accordance with CLIA regulations, College [employer] (CAP) guidelines (May 20, 2019), and FDA guidance (May 01, 2019). This test is only for use under the Food and Drug Administration's Emergency Use Authorization. Performing Lab [facility] 12/11/2019 20:19 EDT [facility] Swab 12/10/2019 10:4 8 EDT 12/10/2019 15:59 EDT us Provider Outr Resulting Lab MICROBIOLOGY - GENER AL ORDERABLES Final Result [facility] [address] [place] [address] [facility] [place] documented in this encounter Visit Diagnoses Not on filedocumented in this encounter Care Teams Veneer Clipper Helper Relationship Specialty Start Date End Date Unknown, Provider, PCP - General 10/02/10 documented as of this encounter
--- OUTSIDE RECORDS SUMMARY | 2024-02-24 13:48 | XMS_ITS | Encounter Summary ---
Author Organization [facility] Address [address] [place] [address] Care Team Providers Care Civil Engineering Project Designer Name Role Phone Unknown, Provider Primary Care Provider Unava ilable Encounter Details Date Type Department Care Team (Late st Contact Info) Description 11/11/2012 Results Only [facility] Services - [facility] ([facility]) [address] [place], [place] [address] Cristino Wharton, JAMISON [address] [facility] [place], [place] [address] Social History Tobacco Use Types Packs/Day Years [...] ? ROYAL VARGAS ? Accession #: ? [id number] : ? 1990 (Age: 22) ??F ?Collect [...] ORDERABLES Final Re sult [facility] [address] [place] [address] documented in this encounter Visit Diagnoses Not on filedocumented in this encounter Care Teams Civil Engineering Project Designer Relationship Specialty Start Date End Date Unknown, Provider, PCP - General 10/02/10 documented as of this encounter
--- OUTSIDE RECORDS SUMMARY | 2024-02-24 13:48 | XMS_ITS | Encounter Summary ---
Author Organization [facility] Address [address] [place] [address] Care Team Providers Care Substation Wireman Name Role Phone Unknown, Provider Primary Care Provider Unava ilable Encounter Details Date Type Department Care Team (Late st Contact Info) Description 02/09/2020 Lab Requisition [facility] Pathology & Laboratory Medicine - [address] [address] Outr Resulting Lab, Provider Social History Tobacco [...] in accordance with CLIA regulations, College of [place] Pathologists (CAP) guidelines (May 20, 2019), and FDA guidance (May 01, 2019). This test is only for use under the Food and Drug Administration's Emergency Use Authorization. Swab ENTIRE NASOPHARYNX / Unknown 02/08/2020 14:45 EST 02/09/2020 16:13 EST us Provider Outr Resulting Lab MICROBIOLOGY - GENER AL ORDERABLES Final Result [facility] [place], [place] * COVID-19 TESTING (02/08/2020 14:45 EST) COVID-19 rt-PCR Result NEGATIVE Negative 02/11/2020 15:51 EST [facility] Comment: 2019-novel Coronavirus (2019-nCoV) not detected [...] in accordance with CLIA regulations, College of [place] Pathologists (CAP) guidelines (May 20, 2019), and FDA guidance (May 01, 2019). This test is only for use under the Food and Drug Administration's Emergency Use Authorization. Performing Lab [facility] 02/11/2020 15:51 EST [facility] Swab 02/08/2020 14:4 5 EST 02/09/2020 16:13 EST us Provider Outr Resulting Lab MICROBIOLOGY - GENER AL ORDERABLES Final Result [facility] [address] [place] [address] [facility] [place], [place] documented in this encounter Visit Diagnoses Not on filedocumented in this encounter Care Teams Substation Wireman Relationship Specialty Start Date End Date Unknown, Provider, PCP - General 10/02/10 documented as of this encounter
--- OUTSIDE RECORDS SUMMARY | 2024-02-24 13:48 | XMS_ITS | Encounter Summary ---
Author Organization [facility] Address [address] [place] [address] Care Team Providers Care Assistant Football Coach Name Role Phone Unknown, Provider Primary Care Provider Unava ilable Encounter Details Date Type Department Care Team (Late st Contact Info) Description 07/14/2020 Lab Requisition [facility] Pathology & Laboratory Medicine - [address] [address] Outr Resulting Lab, Provider Social History Tobacco [...] MICROBIOLOGY - GENER AL ORDERABLES Final Result [facility] [address] [place] [address] * COVID-19 TESTING (07/13/2020 14:30 EDT) COVID-19 rt-PCR Result Negative Negative 07/15/2020 14:10 EDT [facility] Comment: This test has [...] developed and its performance characteristics determined by [facility]. It has not been cleared or [...] testing. This test is based on the [facility] COVID-19 Emergency Use Authorization (EUA) assay, with minor modification as defined by the FDA Performed on the [employer] 7 Pro RT-PCR System. Performing Lab [facility] 07/15/2020 14:10 EDT [facility] Swab 07/13/2020 14:3 0 EDT 07/14/2020 15:43 EDT us Provider Outr Resulting Lab MICROBIOLOGY - GENER AL ORDERABLES Final Result [facility] [address] [place] [address] documented in this encounter Visit Diagnoses Not on filedocumented in this encounter Care Teams Assistant Football Coach Relationship Specialty Start Date End Date Unknown, Provider, PCP - General 10/02/10 documented as of this encounter
--- OUTSIDE RECORDS SUMMARY | 2024-02-24 13:48 | XMS_ITS | Encounter Summary ---
Author Organization [facility] Address [address] [place] [address] Care Team Providers Care Enamel Shader Name Role Phone Unknown, Provider Primary Care Provider Unava ilable Encounter Details Date Type Department Care Team (Late st Contact Info) Description 12/14/[address] [facility] Pathology & Laboratory Medicine - [address] [address] Outr Resulting Lab, Provider Social History Tobacco [...] in accordance with CLIA regulations, College of [place] Pathologists (CAP) guidelines (May 20, 2019), and FDA guidance (May 01, 2019). This test is only for use under the Food and Drug Administration's Emergency Use Authorization. Swab ENTIRE NASOPHARYNX / Unknown 12/14/2019 10:03 EDT 12/14/2019 16:52 EDT us Provider Outr Resulting Lab MICROBIOLOGY - GENER AL ORDERABLES Final Result [facility] [place], [place] * COVID-19 TESTING (12/14/2019 10:03 EDT) Pathologist [facility] COVID-19 rt-PCR Result NEGATIVE Negative 12/15/2019 20:36 EDT [facility] Comment: 2019-novel Coronavirus (2019-nCoV) not [...] in accordance with CLIA regulations, College of [place] Pathologists (CAP) guidelines (May 20, 2019), and FDA guidance (May 01, 2019). This test is only for use under the Food and Drug Administration's Emergency Use Authorization. Performing Lab [facility] [place] 12/15/2019 20:36 EDT [facility] Swab 12/14/2019 10:0 3 EDT 12/14/2019 16:52 EDT us Provider Outr Resulting Lab MICROBIOLOGY - GENER AL ORDERABLES Final Result [facility] [address] [place] [address] [facility] [place], [place] documented in this encounter Visit Diagnoses Not on filedocumented in this encounter Care Teams Enamel Shader Relationship Specialty Start Date End Date Unknown, Provider, PCP - General 10/02/10 documented as of this encounter
--- OUTSIDE RECORDS SUMMARY | 2024-02-24 13:48 | XMS_ITS | Encounter Summary ---
Author Organization [facility] Address [address] [place] [address] Care Team Providers Care Preparation Room Manager Name Role Phone Unavailable Primary Care Provider Unavailabl e Encounter Details Date Type Department Care Team (Late st Contact Info) Description 10/19/2005 Results Only [facility] - Maple conversion [address] [place] [address] Unknown, Provider, Social History Tobacco Use Types [...] Result No Neisseria gonorrhoeae DNA detected by registered appraiser mediated amplification. [facility] Report Status Final [id number] [facility] Specimen Description Urine [facility] 10/19/2005 23:2 1 EDT 10/20/2005 15:14 EDT us Provider Unknown MICROBIOLOGY - GENERAL ORDER ANNA Final Result Performing Organization Address [facility]/ZIP Co de Phone Number [facility] [address] [place] [address] * CHLAMYDIA TRACHOMATIS AMPLIFIED PROBE (10/19/2005 23:21 EDT) Specimen Description Urine [facility] Result No Chlamydia trachomatis DNA detected by registered appraiser mediated amplification. [facility] Report Status Final [id number] [facility] 10/19/2005 23:2 1 EDT 10/20/2005 15:14 EDT us Provider Unknown MICROBIOLOGY - GENERAL ORDER ANNA Final Result Performing Organization Address [facility] Co de Phone Number [facility] [address] [place] [address] documented in this encounter Visit Diagnoses Not on filedocumented in this encounter
--- OUTSIDE RECORDS SUMMARY | 2024-02-24 13:48 | XMS_ITS | Encounter Summary ---
Author Organization [facility] Address [address] [place] [address] Care Team Providers Care Truck Loader And Unloader Name Role Phone Unknown, Provider Primary Care Provider Unava ilable Encounter Details Date Type Department Care Team (Late st Contact Info) Description 12/12/2010 20:55 EDT - 12/12/2010 20:57 EDT Hospital Encounter [facility] [address] [place] [address] Deisy Cantu, [facility] [address] [address] Discharge Disposition: Home or Self Care Social [...] on filedocumented in this encounter Care Teams Truck Loader And Unloader Relationship Specialty Start Date End Date Unknown, Provider, PCP - General 10/02/10 documented as of this encounter
--- OUTSIDE RECORDS SUMMARY | 2024-02-24 13:48 | XMS_ITS | Encounter Summary ---
Author Organization [facility] Address [address] [place] [address] Care Team Providers Care Electrical Supervisor Name Role Phone Unknown, Provider Primary Care Provider Unava ilable Encounter Details Date Type Department Care Team (Late st Contact Info) Description 10/02/2010 Results Only [facility] Laboratory Services - [facility] ([place]) [address] [place], [place] [id number] Cristino Silver, JAMISON [address] [facility] [place], [place] [address] Social History Tobacco Use Types Packs/Day Years [...] ? ROYAL VARGAS ? Accession #: ? [id number] ? : ? 1990 (Age: 20) ??F [...] ORDERABLES Final Re sult [facility] [address] [place] [address] documented in this encounter Visit Diagnoses Not on filedocumented in this encounter Care Teams Electrical Supervisor Relationship Specialty Start Date End Date Unknown, Provider, PCP - General 10/02/10 documented as of this encounter
--- OUTSIDE RECORDS SUMMARY | 2024-02-24 13:48 | XMS_ITS | Encounter Summary ---
Author Organization [facility] Address [address] [place] [address] Care Team Providers Care Ammonia Box Operator Name Role Phone Unknown, Provider Primary Care Provider Unava ilable Encounter Details Date Type Department Care Team (Late st Contact Info) Description 08/11/2013 Results Only [facility] Laboratory Services - [facility] [address] [place], [place] [address] Cristino Wharton, JAMISON [address] [place], [place] [address] Social History Tobacco Use Types Packs/Day Years [...] ? ROYAL VARGAS ? Accession #: ? [id number] : ? 1990 (Age: 23) ??F ?Collect [...] Final Re sult [facility] [address] [place] [address] documented in this encounter Visit Diagnoses Not on filedocumented in this encounter Care Teams Ammonia Box Operator Relationship Specialty Start Date End Date Unknown, Provider, PCP - General 10/02/10 documented as of this encounter
--- OUTSIDE RECORDS SUMMARY | 2024-02-24 13:48 | XMS_ITS | Encounter Summary ---
Author Organization [facility] Address [address] [place] [address] Care Team Providers Care Embossograph Operator Name Role Phone Unavailable Primary Care Provider Unavailabl e Encounter Details Date Type Department Care Team (Late st Contact Info) Description 11/20/2007 Before PRISM Converted Visit (Maple) [facility] - Maple conversion [address] [place] [address] Ulises Rm MD [address] [place] [address] Social History Tobacco Use Types Packs/Day Years [...] ERABLES Final Result [facility] [address] [place] [address] * CYTOPATHOLOGY (11/20/2007 0:00 EDT) Pathology Report: CYTOPATHOLOGY REPORT ? Reports generated via electronic interface contain original data; ? however they are lacking the format of the original report. ? Caution should be taken when reading/interpreti ng unformatted reports. ? Name: ? ROYAL NESBITT ? Accession #: ? [id number] ? : ? 1990 (Age: 17) ??F [...] PATHOLOGY ORDERABLES Final Result [facility] [address] [place] [address] documented in this encounter Visit Diagnoses Not on filedocumented in this encounter
--- OUTSIDE RECORDS SUMMARY | 2024-02-24 13:48 | XMS_ITS | Encounter Summary ---
Author Organization [facility] Address [address] [place] [address] Care Team Providers Care Hog Ribber Name Role Phone Unavailable Primary Care Provider Unavailabl e Encounter Details Date Type Department Care Team (Late st Contact Info) Description 03/30/2007 Results Only [facility] - Maple conversion [address] [place] [address] Unknown, Provider, Social History Tobacco Use Types [...] HERPES SIMPLEX VIRUS TYPE I RECOVERED [facility] Report Status Final [id number] [facility] 03/30/2007 11:2 9 EST 03/30/2007 21:09 EST us Provider Unknown MICROBIOLOGY - GENERAL ORDER ANNA Final Result [facility] [address] [place] [address] documented in this encounter Visit Diagnoses Not on filedocumented in this encounter
== END 2024-02-24 14:05 ==
LOC: DI 13:46
PROVIDERS: PCP Nurse Practitioner Family; Visit Provider Family Medicine
DX: J20.9 Acute bronchitis, unspecified (principal)
CPT/HCPCS: 71046

== ENCOUNTER 2024-04-14 16:19 | Outpatient (CLI) | payer MEDICAID, SELFPAY ==
--- NOTE | 2024-04-14 15:54 | DI.RAD_ITS ---
Exam(s) XR CHEST 2V PA LATERAL EXAM: XR CHEST 2V PA LATERAL CLINICAL HISTORY: Cough, R05.9 TECHNIQUE: 2D digital imaging was performed. Two views. COMPARISON: CR XR CHEST 2V PA LATERAL from 02/24/2024 FINDINGS: HEART: Normal size. Aorta: Not dilated. PULMONARY VASCULATURE: Normal. MEDIASTINUM: Unremarkable. LUNGS: Clear. PLEURAL SPACE: No pleural effusion or pneumothorax. BONE:Unremarkable for age. SOFT TISSUES: Unremarkable. IMPRESSION: No acute abnormality. DATA REPOSITORY: RADIATION DOSE DELIVERED:
--- OUTSIDE RECORDS SUMMARY | 2024-04-14 16:22 | XMS_ITS | Encounter Summary ---
Author Organization [facility] Address [address] [place] [address] Care Team Providers Care Irrigation Foreman Name Role Phone Unknown, Provider Primary Care Provider Unava ilable Encounter Details Date Type Department Care Team (Late st Contact Info) Description 07/14/2020 Lab Requisition [facility] Pathology & Laboratory Medicine - [address] [address] Outr Resulting Lab, Provider Social History Tobacco [...] MICROBIOLOGY - GENER AL ORDERABLES Final Result [facility] [address] [place] [address] * COVID-19 TESTING (07/13/2020 14:30 EDT) COVID-19 rt-PCR Result Negative Negative 07/15/2020 14:10 EDT [facility] Comment: This test has [...] developed and its performance characteristics determined by [facility]. It has not been cleared or approved [...] testing. This test is based on the [facility] COVID-19 Emergency Use Authorization (EUA) assay, with minor modification as defined by the FDA Performed on the [employer] 7 Pro RT-PCR System. Performing Lab [facility] Lab 07/15/2020 14:10 EDT [facility] Swab 07/13/2020 14:3 0 EDT 07/14/2020 15:43 EDT us Provider Outr Resulting Lab MICROBIOLOGY - GENER AL ORDERABLES Final Result [facility] [address] [place] [address] documented in this encounter Visit Diagnoses Not on filedocumented in this encounter Care Teams Irrigation Foreman Relationship Specialty Start Date End Date Unknown, Provider, PCP - General 10/02/10 documented as of this encounter
--- OUTSIDE RECORDS SUMMARY | 2024-04-14 16:22 | XMS_ITS | Clinical Summary ---
Author Organization [facility] Address [address] [place] [address] Care Team Providers Care Appliance Service Technician Name Role Phone Unknown, Provider Primary [...] 2023 Insurance MEDICAID [employer] Care Teams Appliance Service Technician Relationship Specialty Start Date End Date Unknown, Provider, PCP - General 8/2/11
--- OUTSIDE RECORDS SUMMARY | 2024-04-14 16:22 | XMS_ITS | Encounter Summary ---
Author Organization [facility] Address [address] [place] [address] Care Team Providers Care Steel Rule Inspector Name Role Phone Unknown, Provider Primary Care Provider Unava ilable Encounter Details Date Type Department Care Team (Late st Contact Info) Description 02/09/2020 Lab Requisition [facility] Pathology & Laboratory Medicine - [address] [address] Outr Resulting Lab, Provider Social History Tobacco [...] in accordance with CLIA regulations, College of [place] Pathologists (CAP) guidelines (May 20, 2019), and FDA guidance (May 01, 2019). This test is only for use under the Food and Drug Administration's Emergency Use Authorization. Swab ENTIRE NASOPHARYNX / Unknown 02/08/2020 14:45 EST 02/09/2020 16:13 EST us Provider Outr Resulting Lab MICROBIOLOGY - GENER AL ORDERABLES Final Result [facility] [place], [place] * COVID-19 TESTING (02/08/2020 14:45 EST) COVID-19 rt-PCR Result NEGATIVE Negative 02/11/2020 15:51 EST [facility] Comment: 2019-novel Coronavirus [...] in accordance with CLIA regulations, College of [place] Pathologists (CAP) guidelines (May 20, 2019), and FDA guidance (May 01, 2019). This test is only for use under the Food and Drug Administration's Emergency Use Authorization. Performing Lab [facility] 02/11/2020 15:[address] [facility] Swab 02/08/2020 14:4 5 EST 02/09/2020 16:13 EST us Provider Outr Resulting Lab MICROBIOLOGY - GENER AL ORDERABLES Final Result [facility] [address] [place] [address] [facility] [place], [place] documented in this encounter Visit Diagnoses Not on filedocumented in this encounter Care Teams Steel Rule Inspector Relationship Specialty Start Date End Date Unknown, Provider, PCP - General 10/02/10 documented as of this encounter
--- OUTSIDE RECORDS SUMMARY | 2024-04-14 16:22 | XMS_ITS | Encounter Summary ---
Author Organization [facility] Address [address] [place] [address] Care Team Providers Care Business Planner Name Role Phone Unknown, Provider Primary Care Provider Unava ilable Encounter Details Date Type Department Care Team (Late st Contact Info) Description 12/14/2019 Lab Requisition [facility] Pathology & Laboratory Medicine - [address] [address] Outr Resulting Lab, Provider Social History Tobacco [...] in accordance with CLIA regulations, College of [place] Pathologists (CAP) guidelines (May 20, 2019), and FDA guidance (May 01, 2019). This test is only for use under the Food and Drug Administration's Emergency Use Authorization. Swab ENTIRE NASOPHARYNX / Unknown 12/14/2019 10:03 EDT 12/14/2019 16:52 EDT us Provider Outr Resulting Lab MICROBIOLOGY - GENER AL ORDERABLES Final Result [facility] [place], [place] * COVID-19 TESTING (12/14/2019 10:03 EDT) Pathologist [facility] COVID-19 rt-PCR Result NEGATIVE Negative 12/15/2019 20:36 EDT [facility] Comment: 2019-novel Coronavirus (2019-nCoV) not [...] in accordance with CLIA regulations, College of [place] Pathologists (CAP) guidelines (May 20, 2019), and FDA guidance (May 01, 2019). This test is only for use under the Food and Drug Administration's Emergency Use Authorization. Performing Lab [facility] [place] 12/15/2019 20:36 EDT [facility] Swab 12/14/2019 10:0 3 EDT 12/14/2019 16:52 EDT us Provider Outr Resulting Lab MICROBIOLOGY - GENER AL ORDERABLES Final Result [facility] [address] [place] [address] [facility] [place], [place] documented in this encounter Visit Diagnoses Not on filedocumented in this encounter Care Teams Business Planner Relationship Specialty Start Date End Date Unknown, Provider, PCP - General 10/02/10 documented as of this encounter
--- OUTSIDE RECORDS SUMMARY | 2024-04-14 16:22 | XMS_ITS | Referral Summary ---
Author Organization [facility] Address [address] [place] [address] Care Team Providers Care Commercial Electrician Name Role Phone Unknown, Provider Primary Care [...] file Insurance MEDICAID [employer] Care Teams Commercial Electrician Relationship Specialty Start Date End Date Unknown, Provider, PCP - General 10/02/10
--- OUTSIDE RECORDS SUMMARY | 2024-04-14 16:22 | XMS_ITS | Encounter Summary ---
Author Organization [facility] Address [address] [place] [address] Care Team Providers Care Family Centered Specialist Name Role Phone Unknown, Provider Primary Care Provider Unava ilable Encounter Details Date Type Department Care Team (Late st Contact Info) Description 01/24/2021 Lab Requisition [facility] Pathology & Laboratory Medicine - [address] [address] Outr Resulting Lab, Provider Social History Tobacco [...] AL ORDERABLES Final Result Performing Organization Address [facility] de Phone Number [facility] [address] [place] [address] * COVID-19 TESTING (01/23/2021 11:00 EST) COVID-19 rt-PCR Result Negative Negative 01/24/2021 21:44 EST [facility] Comment: This test has [...] history, and epidemiological information. Performed on the [employer] Fusion instrument Performing Lab [place] [facility] 01/24/2021 21:44 EST [facility] Swab 01/23/2021 11:0 0 EST 01/24/2021 16:45 EST us Provider Outr Resulting Lab MICROBIOLOGY - GENER AL ORDERABLES Final Result Performing Organization Address [facility] Co de Phone Number [facility] [address] [place] [address] documented in this encounter Visit Diagnoses Not on filedocumented in this encounter Care Teams Family Centered Specialist Relationship Specialty Start Date End Date Unknown, Provider, PCP - General 10/02/10 documented as of this encounter
--- OUTSIDE RECORDS SUMMARY | 2024-04-14 16:22 | XMS_ITS | Encounter Summary ---
Author Organization [facility] Address [address] [place] [address] Care Team Providers Care Filtering Machine Tender Helper Name Role Phone Unknown, Provider Primary Care Provider Unava ilable Encounter Details Date Type Department Care Team (Late st Contact Info) Description 12/10/2019 Lab Requisition [facility] Pathology & Laboratory Medicine - [address] [address] Outr Resulting Lab, Provider Social History Tobacco [...] in accordance with CLIA regulations, College of [place] Pathologists (CAP) guidelines (May 20, 2019), and FDA guidance (May 01, 2019). This test is only for use under the Food and Drug Administration's Emergency Use Authorization. Swab ENTIRE NASOPHARYNX / Unknown 12/10/2019 10:48 EDT 12/10/2019 15:59 EDT us Provider Outr Resulting Lab MICROBIOLOGY - GENER AL ORDERABLES Final Result [facility] [place], [place] * COVID-19 TESTING (12/10/2019 10:48 EDT) Pathologist [facility] COVID-19 rt-PCR Result NEGATIVE Negative 12/11/2019 20:19 EDT [facility] Comment: 2019-novel Coronavirus (2019-nCoV) not detected [...] in accordance with CLIA regulations, College of [employer] Pathologists (CAP) guidelines (May 20, 2019), and FDA guidance (May 01, 2019). This test is only for use under the Food and Drug Administration's Emergency Use Authorization. Performing Lab [facility] [place] 12/11/2019 20:19 EDT [facility] Swab 12/10/2019 10:4 8 EDT 12/10/2019 15:59 EDT us Provider Outr Resulting Lab MICROBIOLOGY - GENER AL ORDERABLES Final Result [facility] [address] [place] [address] [facility] [place], [place] documented in this encounter Visit Diagnoses Not on filedocumented in this encounter Care Teams Filtering Machine Tender Helper Relationship Specialty Start Date End Date Unknown, Provider, PCP - General 10/02/10 documented as of this encounter
--- OUTSIDE RECORDS SUMMARY | 2024-04-14 16:22 | XMS_ITS | Encounter Summary ---
Author Organization [facility] Address [address] [place] [address] Care Team Providers Care Service Observer Chief Name Role Phone Unknown, Provider Primary Care Provider Unava ilable Encounter Details Date Type Department Care Team (Late st Contact Info) Description 08/11/2013 Results Only [facility] Laboratory Services - [facility] ([facility]) [address] [place], [place] [id number] Cristino Wharton, JAMISON [address] [facility] [place], [place] [address] Social History Tobacco Use Types Packs/Day Years [...] ? ROYAL VARGAS ? Accession #: ? [id number] : ? 1990 (Age: 23) ??F ?Collect [...] Final Re sult [facility] [address] [place] [address] documented in this encounter Visit Diagnoses Not on filedocumented in this encounter Care Teams Service Observer Chief Relationship Specialty Start Date End Date Unknown, Provider, PCP - General 10/02/10 documented as of this encounter
--- OUTSIDE RECORDS SUMMARY | 2024-04-14 16:23 | XMS_ITS | Encounter Summary ---
Author Organization [facility] Address [address] [place] [address] Care Team Providers Care Director Of Restaurants Name Role Phone Unavailable Primary Care Provider Unavailabl e Encounter Details Date Type Department Care Team (Late st Contact Info) Description 03/30/2007 Results Only [facility] - Maple conversion [address] [place] [address] Unknown, Provider, Social History Tobacco Use Types [...] RECOVERED [facility] Report Status Final [id number] [facility] 03/30/2007 11:2 9 EST 03/30/2007 21:09 EST us Provider Unknown MICROBIOLOGY - GENERAL ORDER ANNA Final Result [facility] [address] [place] [address] documented in this encounter Visit Diagnoses Not on filedocumented in this encounter
--- OUTSIDE RECORDS SUMMARY | 2024-04-14 16:23 | XMS_ITS | Encounter Summary ---
Author Organization [facility] Address [address] [place] [address] Care Team Providers Care Guest Relations Manager Name Role Phone Unknown, Provider Primary Care Provider Unava ilable Encounter Details Date Type Department Care Team (Late st Contact Info) Description 12/12/2010 20:55 EDT - 12/12/2010 20:57 EDT Hospital Encounter [facility] ([facility] [address] [place] [address] Deisy Cantu, [facility] [address] [address] Discharge Disposition: Home or Self Care Social [...] on filedocumented in this encounter Care Teams Guest Relations Manager Relationship Specialty Start Date End Date Unknown, Provider, PCP - General 10/02/10 documented as of this encounter
--- OUTSIDE RECORDS SUMMARY | 2024-04-14 16:23 | XMS_ITS | Encounter Summary ---
Author Organization [facility] Address [address] [place] [address] Care Team Providers Care Code Inspector Name Role Phone Unknown, Provider Primary Care Provider Unava ilable Encounter Details Date Type Department Care Team (Late st Contact Info) Description 10/02/2010 Results Only [facility] Laboratory Services - [facility] ([facility]) [address] [place], [place] [id number] Cristino Silver, JAMISON [address] [facility] [place], [place] [address] Social History Tobacco Use Types Packs/Day Years [...] ? ROYAL VARGAS ? Accession #: ? [id number] ? : ? 1990 (Age: 20) ??F [...] ORDERABLES Final Re sult [facility] [address] [place] [address] documented in this encounter Visit Diagnoses Not on filedocumented in this encounter Care Teams Code Inspector Relationship Specialty Start Date End Date Unknown, Provider, PCP - General 10/02/10 documented as of this encounter
--- OUTSIDE RECORDS SUMMARY | 2024-04-14 16:23 | XMS_ITS | Encounter Summary ---
Author Organization [facility] Address [address] [place] [address] Care Team Providers Care Social Human Services Assistants Name Role Phone Unknown, Provider Primary Care Provider Unava ilable Encounter Details Date Type Department Care Team (Late st Contact Info) Description 11/11/2012 Results Only [facility] Laboratory Services - [facility] ([facility]) [address] [place], [place] [address] Cristino Wharton, JAMISON [address] [facility] [place], [place] [address] Social History Tobacco Use Types Packs/Day Years [...] ? ROYAL VARGAS ? Accession #: ? [id number] : ? 1990 (Age: 22) ??F ?Collect [...] ORDERABLES Final Re sult [facility] [address] [place] [address] documented in this encounter Visit Diagnoses Not on filedocumented in this encounter Care Teams Social Human Services Assistants Relationship Specialty Start Date End Date Unknown, Provider, PCP - General 10/02/10 documented as of this encounter
--- OUTSIDE RECORDS SUMMARY | 2024-04-14 16:23 | XMS_ITS | Encounter Summary ---
Author Organization [facility] Address [address] [place] [address] Care Team Providers Care Reset Merchandiser Name Role Phone Unavailable Primary Care Provider Unavailabl e Encounter Details Date Type Department Care Team (Late st Contact Info) Description 11/20/2007 Before PRISM Converted Visit (Map[place]) [facility] - Maple conversion [address] [place] [address] Ulises Rm MD [address] [place] [id number] Social History Tobacco Use Types Packs/Day Years [...] ERABLES Final Result [facility] [address] [place] [address] * CYTOPATHOLOGY (11/20/2007 0:00 EDT) Pathology Report: CYTOPATHOLOGY REPORT ? Reports generated via electronic interface contain original data; ? however they are lacking the format of the original report. ? Caution should be taken when reading/interpreti ng unformatted reports. ? Name: ? ROYAL NESBITT ? Accession #: ? [id number] ? : ? 1990 (Age: 17) ??F [...] PATHOLOGY ORDERABLES Final Result [facility] [address] [place] [address] documented in this encounter Visit Diagnoses Not on filedocumented in this encounter
--- OUTSIDE RECORDS SUMMARY | 2024-04-14 16:23 | XMS_ITS | Encounter Summary ---
Author Organization [facility] Address [address] [place] [address] Care Team Providers Care Packager Machine Name Role Phone Unknown, Provider Primary Care Provider Unava ilable Encounter Details Date Type Department Care Team (Late st Contact Info) Description 07/09/2011 Results Only [facility] Laboratory Services - [facility] ([facility]) [address] [place], [place] [id number] Millie Olivera, JAMISON [address] [facility] [address] [place], [place] [id number] Social History Tobacco Use Types Packs/Day Years [...] ? ROYAL VARGAS ? Accession #: ? [id number] : ? 1990 (Age: 21) ??F ?Collect [...] Final R esult [facility] [address] [place] [address] documented in this encounter Visit Diagnoses Not on filedocumented in this encounter Care Teams Packager Machine Relationship Specialty Start Date End Date Unknown, Provider, PCP - General 10/02/10 documented as of this encounter
--- OUTSIDE RECORDS SUMMARY | 2024-04-14 16:23 | XMS_ITS | Encounter Summary ---
Author Organization [facility] Address [address] [place] [address] Care Team Providers Care Neonatal Social Worker Name Role Phone Unavailable Primary Care Provider Unavailabl e Encounter Details Date Type Department Care Team (Late st Contact Info) Description 10/19/2005 Results Only [facility] - Maple conversion [address] [place] [address] Unknown, Provider, Social History Tobacco Use Types [...] Result No Neisseria gonorrhoeae DNA detected by mincemeat maker mediated amplification. [facility] Report Status Final [id number] [facility] Specimen Description Urine [facility] 10/19/2005 23:2 1 EDT 10/20/2005 15:14 EDT us Provider Unknown MICROBIOLOGY - GENERAL ORDER ANNA Final Result Performing Organization Address [facility]/ZIP Co de Phone Number [facility] [address] [place] [address] * CHLAMYDIA TRACHOMATIS AMPLIFIED PROBE (10/19/2005 23:21 EDT) Specimen Description Urine [facility] Result No Chlamydia trachomatis DNA detected by mincemeat maker mediated amplification. [facility] Report Status Final [id number] [facility] 10/19/2005 23:2 1 EDT 10/20/2005 15:14 EDT us Provider Unknown MICROBIOLOGY - GENERAL ORDER ANNA Final Result Performing Organization Address [facility] Co de Phone Number [facility] [address] [place] [address] documented in this encounter Visit Diagnoses Not on filedocumented in this encounter
== END 2024-04-14 16:39 ==
LOC: DI 16:20
PROVIDERS: PCP Nurse Practitioner Family; Visit Provider Family Medicine
DX: R05.9 Cough, unspecified (principal)
CPT/HCPCS: 71046

== ENCOUNTER 2024-06-28 18:52 | Emergency (ER) | payer MEDICAID, SELFPAY ==
[2024-06-28 18:57] VITALS: BP 120/58; PULSE 98; RESP 20; TEMP 36.9; O2SAT 100
== END 2024-06-28 21:39 | disposition left against medical advice (07) ==
LOC: ER 19:06
PROVIDERS: PCP Nurse Practitioner Family
DX: Z53.20 Procedure and treatment not carried out because of patient's decision for unspecified reasons (principal)

== ENCOUNTER 2024-07-31 13:36 | Emergency (ER) | payer MEDICAID, SELFPAY ==
[2024-07-31 13:40] VITALS: BP 108/68; PULSE 90; RESP 16; RESP 25; TEMP 36.5; O2SAT 98
[2024-07-31 13:44] VITALS: BP 108/68; PULSE 90; RESP 16; TEMP 36.5; O2SAT 98
[2024-07-31 13:50] VITALS: RESP 5
[2024-07-31] MEDS: Albuterol/Ipratropium 3 ML UPD VIAL UPD ×2 (13:50→14:45)
--- NOTE | 2024-07-31 14:05 | ED.GENADUL_ITS ---
Discharge Plan Disposition Patient Disposition: Home Condition: Stable Discharge Details Clinical Impression: Asthma exacerbation Primary Care Provider: Regina Pappas ED Provider: Zahida Killian Home Meds and New Rx's Prescriptions: New prednisone 20 mg tablet 40 mg PO DAILY 4 Days Qty: 8 0RF Rx Instructions: Start on 08/01/24 cetirizine 10 mg tablet 10 mg PO DAILY Qty: 30 0RF No Action Pulmicort Flexhaler 120 PUFF/INH aerosol powdr breath activated 180 mcg IN BID bupropion HCl [Wellbutrin XL] 300 mg Tablet Extended Release 24 Hr 300 mg PO DAILY topiramate 25 mg tablet 25 - 50 mg PO BID Patient Comments: TAKE 1 TABLET BY MOUTH TWICE DAILY. MAY INCREASE TO 2 TABLETS BY MOUTH TWICE DAILY TOLERATED montelukast 10 mg tablet 10 mg PO DAILY Patient Comments: TAKE 1 TABLET BY MOUTH DAILY albuterol sulfate [ProAir HFA] 8.5 GM HFA aerosol inhaler 2 puff IN Q4H PRN (Reason: Shortness Of Breath Or Wheezing) Qty: 0 0RF loratadine 10 mg Tablet 10 mg PO DAILY ibuprofen 200 mg Tablet 400 mg PO PRN PRN albuterol sulfate 2.5 mg /3 mL (0.083 %) Solution For Nebulization 2.5 mg inhalation Q4H PRNQty: 0 0RF Discharge Instructions Instructions: Asthma, Adult ED Additional Instructions: You were seen in the emergency department today for evaluation of an asthma exacerbation that was likely triggered by cleaning your rabbit cage. In our department a full physical examination performed, and received breathing treatments and your first dose of prednisone. Your oxygen is safe and I recommend that you continue to use your rescue inhaler. You need to finish a prednisone burst, you will start that tomorrow and take it for the next 4 days. Please take all this medication until it is gone, even if you start to feel better. I have also provided you with a prescription for cetirizine, which can reduce allergic symptoms. Sometimes this medication is cheaper to purchase [id number], either way of getting this medication will be effective in helping your allergy symptoms. Please follow-up with your primary care provider in the next few days to discuss this visit and any symptoms that change, worsen, or persist. Thank you for allowing us to be part of your care. HPI General Mode of arrival: ambulatory . Date/Time Provider Initiated Documentation: 07/31/24 13:46 . Limitations to Documentation: no limitations . Information obtained by: patient and old records reviewed . HPI Narrative: This is a 34-year-old female patient with a past medical history significant for asthma who is presenting for evaluation of asthma exacerbation. She reports that the symptoms started just prior to arrival, in the setting of cleaning a rabbit cage and getting the fumes of rabbit urine inhaled. She reports that this caused her to start wheezing and coughing. She arrived and was noted to be in respiratory distress with no significant hypoxia. She states she has been using her rescue inhaler more frequently over the last few weeks to months. Her last course of oral steroids was about a month ago, she has required hospitalization in the past for her asthma. She states she has not had any recent fever, upper respiratory illness. Related Data Home Medications ?Medication ?Instructions ?Recorded ?Confirmed budesonide 180 mcg/actuation 180 mcg IN BID 08/23/17 07/31/24 breath activated powder inhaler (Pulmicort Flexhaler) bupropion HCl 300 mg 24 hr tablet, 300 mg PO DAILY 03/20/18 07/31/24 extended release (Wellbutrin XL) albuterol sulfate 90 mcg/actuation 2 puff IN Q4H PRN Shortness Of 10/24/18 07/31/24 aerosol inhaler (ProAir HFA) Breath Or Wheezing #0 grams loratadine 10 mg tablet 10 mg PO DAILY 12/16/18 07/31/24 albuterol sulfate 2.5 mg/3 mL 2.5 mg (3 mL) inhalation Q4H PRN 02/24/19 07/31/24 (0.083 %) solution for nebulization #0 mL ibuprofen 200 mg tablet 400 mg PO PRN PRN 02/24/19 07/31/24 montelukast 10 mg tablet 10 mg PO DAILY 01/04/21 07/31/24 topiramate 25 mg tablet 25 - 50 mg PO BID 01/04/21 07/31/24 cetirizine 10 mg tablet 10 mg PO DAILY #30 tabs 07/31/24 prednisone 20 mg tablet 40 mg (2 x 20 mg) PO DAILY 4 days 07/31/24 #8 tabs Previous Rx's ?Medication ?Instructions ?Recorded albuterol sulfate 90 mcg/actuation 2 puff IN Q4H PRN Shortness Of 10/24/18 aerosol inhaler (ProAir HFA) Breath Or Wheezing #0 grams albuterol sulfate 2.5 mg/3 mL 2.5 mg (3 mL) inhalation Q4H PRN 02/24/19 (0.083 %) solution for nebulization #0 mL cetirizine 10 mg tablet 10 mg PO DAILY #30 tabs 07/31/24 prednisone 20 mg tablet 40 mg (2 x 20 mg) PO DAILY 4 days 07/31/24 #8 tabs Allergies Allergy/AdvReac Type Severity Reaction Status Date / Time animal dander Allergy Unknown Verified 06/28/24 18:59 pollen extracts Allergy Unknown Verified 06/28/24 18:59 General Stated Complaint: SOB KELSEY: 4 Exam Narrative Exam Narrative: Gen: Awake and alert, in no apparent distress HEENT: Non-icteric sclera Neck: Supple Lungs: Moderate respiratory distress, speaks in 2-3 word sentences, bilateral expiratory wheezing appreciated CV: Appears well perfused, heart with regular rate and rhythm, strong distal pulses, no murmurs auscultated Abdomen: Non-distended MSK: Moves 4 extremities without apparent limitation in ROM. No peripheral edema noted. Skin: Visualized skin without rashes, cyanosis. Neuro: Normal Gait, no obvious focal deficits or facial asymmetry. Speaks in full, clear sentences. Psych: Appropriate for situation. Course Vital Signs Vital signs: Vital Signs Temperature 36.5 C 07/31/24 13:40 Pulse 90 07/31/24 13:40 Respiratory Rate 16 07/31/24 13:40 Blood Pressure 108/68 07/31/24 13:40 Pulse Oximetry 98 07/31/24 13:40 Temperature 36.5 C 07/31/24 13:44 Pulse 90 07/31/24 13:44 Respiratory Rate 16 07/31/24 13:44 Blood Pressure 108/68 07/31/24 13:44 Pulse Oximetry 98 07/31/24 13:44 Oxygen Delivery Method Room Air 07/31/24 13:44 Oxygen Flow Rate 0 07/31/24 13:44 Medical Decision Making This is a 34-year-old female patient presenting for evaluation of shortness of breath and wheezing. My differential includes but is not limited to asthma exacerbation, pneumonitis, pneumonia, bronchitis, no upper respiratory symptoms to increase my concern for viral URI. Considered allergic reaction, patient does not have 2 system involvement to increase my concern for anaphylaxis. Reassuringly, the patient is currently oxygenating appropriately, and does not have evidence of hypoxic respiratory failure or the need for urgent airway intervention at this time. Will obtain laboratory studies to include CBC, CMP, magnesium, and I will provide the patient with a duo nebulizer and a dose of prednisone. Will obtain a chest x-ray to evaluate for abnormalities that might explain her symptoms. - I independently interpreted the laboratory studies, which show no significant leukocytosis, anemia, or thrombocytopenia. The chemistry panel is without evidence of electrolyte abnormality, kidney dysfunction, or liver injury. The patient had significant improvement in her work of breathing after the first neb, had a second due to some ongoing wheezing. We did improve her wheezing, and she never had desaturations or worsening of her work of breathing. I provided her with a refill of her albuterol rescue inhaler, and a prescription for the remainder of her prednisone burst. Given the potential allergic component, we did start this patient on cetirizine, first dose given here in the emergency department today. I reviewed the patient's chest x-ray, which shows no abnormalities to account for her symptoms, which are most consistent with asthma exacerbation less or minus allergic reaction. At this time, the patient has had a full medical evaluation and is safe for discharge to home. They are hemodynamically stable, ambulatory, and tolerating PO. They are understanding of the follow-up plan and return precautions. They left our facility without incident. Zahida Killian MD Medical Records Medical records reviewed: Yes I reviewed the patient's medical records. Lab Data Lab results reviewed: Yes I reviewed the patient's lab results. Quality:SDOH Health Related Social Needs: No Data to Display PFSH All Active Problems Headache (Acute) Asthma exacerbation (Acute) Viral URI with cough (Acute) No pertinent past surgical history (Chronic) Medical History (Updated 07/31/24 @ 15:24 by Zahida Killian MD) Depression Asthma Social History Smoking/Tobacco Use Status: Former Tobacco Use Quit Date: 02/05/19 Smoking risk assessment performed?: Yes Alcohol Intake: never Drug use: Never Substance use type: does not use Housing: apartment Do you feel safe at home: Yes Do you feel safe in your relationship?: Yes
--- NOTE | 2024-07-31 14:09 | DI.RAD_ITS ---
Exam(s) XR CHEST 2V PA LATERAL EXAM: XR CHEST 2V PA LATERAL CLINICAL HISTORY: Asthma exacerbation. TECHNIQUE: 2D digital imaging was performed. COMPARISON: CR XR CHEST 2V PA LATERAL from 04/14/2024 FINDINGS: 2 views: Heart size is normal. The mediastinum is not widened. Lungs are clear. No infiltrates nor pleural effusions. IMPRESSION: No acute pulmonary findings. DATA REPOSITORY: RADIATION DOSE DELIVERED:
--- NOTE | 2024-07-31 14:42 | DI.VRAD_ITS ---
PROCEDURE INFORMATION: Exam: XR Chest Exam date and time: 07/31/2024 2:09 PM Age: 34 years old Clinical indication: Shortness of breath and other: Asthma exacerbation TECHNIQUE: Imaging protocol: Radiologic exam of the chest. Views: 2 views. COMPARISON: CR XR CHEST 2V PA LATERAL 04/14/2024 3:48 PM FINDINGS: Lungs: No consolidation. Pleural spaces: No pleural effusion. No pneumothorax. Heart/Mediastinum: No cardiomegaly. Bones/joints: Unremarkable. IMPRESSION: No acute findings. Dictated and Authenticated by: Carito Casarez MD. Orderin St. Sina Teague MD
[2024-07-31] MEDS: Cetirizine 10 MG TAB PO (14:45)
[2024-07-31] MEDS: predniSONE 20 MG TAB 60 MG PO (14:45)
[2024-07-31 14:58] LABS: Abs Immature Grans 0.04 10^3/uL (0.0-0.06); Absolute Lymphocyte Count 1.45 10^3/uL (1.2-3.4); Absolute Monocyte Count 0.69 10^3/uL (0.1-0.8); Eosinophils % 8.7 %; HCT 44.4 % (36.0-46.0); HGB 15.7 g/dL (11.2-15.7); Immature Grans % 0.3 %; Lymphocytes % 11.5 %; MCH 31.7 pg (27.0-33.0); MCHC 35.4 % (32.0-36.0); MCV 90 fL (80-95); MPV 9.8 fL (8.0-11.0); Monocytes % 5.5 %; Platelet Count 304 10^3/uL (130-400); RBC 4.96 10^6/uL (3.93-5.22); RDW 11.7 % (11.7-14.6); RDW-SD 37.9 fL; WBC 12.62 10^3/uL (4.4-10.8)
[2024-07-31 14:59] LABS: Absolute Basophil Count 0.13 10^3/uL (0.0-0.2); Absolute Neutrophil Count 9.21 10^3/uL (1.2-6.7)
[2024-07-31 15:19] LABS: ALT 18 U/L (14-59); AST 14 U/L (15-37); Albumin 3.9 g/dL (3.4-5.0); Alkaline Phosphatase 54 U/L (46-116); Anion Gap 7.6 mmol/L (3-11); BUN 8 mg/dL (7-18); Bilirubin, Total 0.5 mg/dL (0.2-1.0); CO2 26.4 mmol/L (21.0-32.0); CREATININE 0.8 mg/dL (0.55-1.02); Calcium 8.8 mg/dL (8.5-10.1); Chloride 110 mmol/L (98-107); Estimated GFR 98.48 (mL/min/1.73m2); Glucose 101 mg/dL (74-106); Magnesium 1.9 mg/dL (1.8-2.4); Potassium 3.6 mmol/L (3.5-5.1); Sodium 144 mmol/L (136-145)
[2024-07-31] MEDS: Albuterol HFA 8 GM 60 PUFF INH IH (15:35)
== END 2024-07-31 15:39 | disposition home or self-care (01) ==
PROVIDERS: Emergency Provider Emergency Medicine; PCP Nurse Practitioner Family
DX: J45.901 Unspecified asthma with (acute) exacerbation (principal)
CPT/HCPCS: 99284 ×2; 94640; 80053; 71046; 83735; 85025; J7512; J7620

== ENCOUNTER 2024-10-18 18:13 | Outpatient (REF) | payer MEDICAID, SELFPAY ==
--- NOTE | 2024-10-18 13:30 | PAPFT_PTH ---
PATIENT: Kody Vragas LOC: [facility] U#:[id number] AGE/SX: 34/F ROOM: RE10/18/[address]: Regina Quevedo : 1990 BED: DIS: 10/18/2024 SPEC #: [id number] RECD: 10/19/24 12:36 STATUS: MISSY REQ #: [id number] PONCHO: 10/18/24 13:[address]: Regina Pappas [facility]PT[facility] Cytology RECD BY: Kaitlin Merida Tissues: 1 - CX/ENDOCX FOR PAP SMEARS Procedures: PAP THIN PREP/UVM Screening HPV DNA PROBE Comments: [id number] (HPV 16 & 18/45)
[2024-10-18 21:37] LABS: HCT 41.4 % (36.0-46.0); HGB 14.5 g/dL (11.2-15.7); MCH 31.7 pg (27.0-33.0); MCHC 35.0 % (32.0-36.0); MCV 90 fL (80-95); MPV 11.0 fL (8.0-11.0); Platelet Count 306 10^3/uL (130-400); RBC 4.58 10^6/uL (3.93-5.22); RDW 11.5 % (11.7-14.6); RDW-SD 37.4 fL; WBC 5.62 10^3/uL (4.4-10.8)
[2024-10-18 22:00] LABS: ALT 21 U/L (14-59); AST 19 U/L (15-37); Albumin 4.2 g/dL (3.4-5.0); Alkaline Phosphatase 63 U/L (46-116); Anion Gap 8.4 mmol/L (3-11); BUN 7 mg/dL (7-18); Bilirubin, Total 0.4 mg/dL (0.2-1.0); CO2 28.6 mmol/L (21.0-32.0); Calcium 8.9 mg/dL (8.5-10.1); Calculated LDL 101 mg/dL (<100); Chloride 105 mmol/L (98-107); Cholesterol 166 mg/dL (<200); Estimated GFR 115.59 (mL/min/1.73m2); Glucose 91 mg/dL (74-106); HDL Cholesterol 52 mg/dL (>or=50); Potassium 3.9 mmol/L (3.5-5.1); Sodium 142 mmol/L (136-145); TSH 1.69 uIU/mL (0.36-3.74); Total Protein 7.3 g/dL (6.4-8.2); Triglyceride 67 mg/dL (<150)
[2024-10-18 22:02] LABS: Hemoglobin A1C 4.8 % (<5.7)
== END 2024-10-18 18:14 | disposition home or self-care (01) ==
LOC: NCHCN 18:13
PROVIDERS: PCP Nurse Practitioner Family; Visit Provider Nurse Practitioner Family
DX: Z12.4 Encounter for screening for malignant neoplasm of cervix (principal); Z13.0 Encounter for screening for diseases of the blood and blood-forming organs and certain disorders involving the immune mechanism; Z13.1 Encounter for screening for diabetes mellitus; Z13.220 Encounter for screening for lipoid disorders; E66.3 Overweight
CPT/HCPCS: 80053; 80061; 85027; 88142; 83036; 84443; 87624

== ENCOUNTER 2025-01-28 11:28 | Outpatient (REF) | payer MEDICAID, SELFPAY | END 2025-01-28 11:29 | disposition home or self-care (01) | LOC: NCHCN 11:28 | PROVIDERS: PCP Nurse Practitioner Family; Visit Provider Nurse Practitioner Family | DX: J44.9 Chronic obstructive pulmonary disease, unspecified (principal) | CPT/HCPCS: 82103; 82104 ==